=== PATIENT | male | born 1945 | race Caucasian/White ===

== ENCOUNTER 2018-04-15 12:18 | Observation (INO) ==
--- NOTE | 2018-04-15 12:42 | Emergency Department Note ---
ED Disposition Clinical Impression: Congestive heart failure Qualifiers: Heart failure type: unspecified Heart failure chronicity: acute on chronic Qualified Code(s): I50.9 - Heart failure, unspecified Disposition: Admitted as Observation Condition on Discharge: [facility] - Critical Care Critical Care Time: No Attestation: On 04/15/18, the high probability of a clinically significant, sudden or life threatening deterioration of the following system(s) required my full and direct attention, intervention and personal management. The time I documented below is in addition to time spent performing reported procedures but includes the following listed in this critical care notation. Medical Decision Making - Luis Inquiry Pt receiving controlled substance: No Vital Signs: 04/15/18 12:26 04/15/18 13:42 04/15/18 15:15 Temperature 98.9 F Temperature Source Oral Pulse Rate Pulse Rate [Left Radial] 67 66 61 Respiratory Rate 18 18 18 Blood Pressure Blood Pressure [Right Arm] 142/79 H 146/91 H 145/86 H Blood Pressure Mean [Right Arm] 100 109 105 Blood Pressure Source Blood Pressure Source [Right Arm] Automatic Cuff Automatic Cuff Automatic Cuff Blood Pressure Position Blood Pressure Position [Right Arm] Sitting Sitting Sitting 02 Sat by Pulse Oximetry 96 96 95 Oxygen Delivery Method Room Air Room Air Room Air 04/15/18 16:34 04/15/18 16:55 04/15/18 17:34 Temperature 98.7 F 98.5 F Temperature Source Oral Oral Pulse Rate Pulse Rate [Left Radial] 100 H 61 74 Respiratory Rate 28 H 20 Blood Pressure Blood Pressure [Right Arm] 118/80 148/87 H 142/84 H Blood Pressure Mean [Right Arm] 92 107 103 Blood Pressure Source Blood Pressure Source [Right Arm] Automatic Cuff Automatic Cuff Automatic Cuff Blood Pressure Position Blood Pressure Position [Right Arm] Sitting Sitting Sitting 02 Sat by Pulse Oximetry 90 L 96 98 Oxygen Delivery Method Room Air Room Air Room Air 04/15/18 17:39 Temperature 98 F Temperature Source Oral Pulse Rate 65 Pulse Rate [Left Radial] Respiratory Rate 24 Blood Pressure 145/75 H Blood Pressure [Right Arm] Blood Pressure Mean [Right Arm] Blood Pressure Source Automatic Cuff Blood Pressure Source [Right Arm] Blood Pressure Position Sitting Blood Pressure Position [Right Arm] 02 Sat by Pulse Oximetry Oxygen Delivery Method Room Air - Lab Data Lab Results 04/15/18 13:05: WBC 7.2, RBC 4.90, Hgb 14.9, Hct 46.1, MCV 93.9, MCH 30.3, MCHC 32.3, RDW 15.2, Plt Count 147, MPV 8.9, Neut % (Auto) 78.1, Lymph % (Auto) 12.1, [place] % (Auto) 6.7, Eos % (Auto) 2.5, Baso % (Auto) 0.6, Neut # (Auto) 5.7, Lymph # (Auto) 0.9, [place] # (Auto) 0.5, Eos # (Auto) 0.2, Baso # (Auto) 0.0 04/15/18 13:05: Troponin I < 0.02 04/15/18 13:05: B-Natriuretic Peptide 1340 H 04/15/18 13:05: Sodium 138, Potassium 4.1, Chloride 101, Carbon Dioxide 26, Anion Gap 15.1 H, BUN 14, Creatinine 1.13, Estimated Creat Clear 71, Estimated GFR 63, Est GFR ( Amer) 77, Glucose 209 H, Calcium 8.8 04/15/18 13:05: D-Dimer 542 H* Result diagrams: 04/15/18 13:05 04/15/18 13:05 Orders (Tests/Meds): ED MEDICATIONS Generic Name Dose Route Start Last Admin Trade Name Michael PRN Reason Stop Dose Admin Carvedilol 25 mg 04/15/18 21:00 Coreg 25mg Tablet PO 05/15/18 20:59 BID LING Furosemide 40 mg 04/15/18 21:00 Lasix 40mg/4ml Vial IV 05/15/18 20:59 BID [facility] Gemfibrozil 600 mg 04/16/18 09:00 Lopid 600mg Tablet PO 05/16/18 08:59 DAILY [facility] Insulin Human Lispro 0 unit 04/15/18 16:53 04/15/18 17:57 Humalog 100 Units/Ml 3ml Vial (Ssi) SQ 05/15/18 16:52 Not Given ACHS [facility] Protocol Lisinopril 20 mg 04/16/18 09:00 Zestril 20mg Tab PO 05/16/18 08:59 DAILY [facility] Pravastatin Sodium 40 mg 04/16/18 09:00 Pravachol 40mg Tablet PO 05/16/18 08:59 DAILY [facility] Spironolactone 25 mg 04/16/18 09:00 Aldactone 25mg Tablet PO 05/16/18 08:59 DAILY [facility]ING Discontinued Medications Generic Name Dose Route Start Last Admin Trade Name Freq PRN Reason Stop Dose Admin Furosemide 40 mg 04/15/18 15:55 04/15/18 16:04 Lasix 40mg/4ml Vial IV 04/15/18 15:56 40 mg ONCE ONE Administration Sodium Chloride 50 ml 04/15/18 14:48 04/15/18 14:49 Rad-Sod Chloride 0.9% 250ml IV 04/15/18 14:49 50 ml ONCE ONE Administration Sodium Chloride 10 ml 04/15/18 14:48 04/15/18 14:49 Rad-Saline Flush 10ml Syringe IV 04/15/18 14:49 10 ml ONCE ONE Administration Sodium Chloride 250 ml 04/15/18 15:11 04/15/18 15:14 Sod Chlor 0.9% 250ml Bag IV 04/15/18 15:12 250 ml ONCE ONE Administration ORDERS Category Date Time Status Consult to Physician [CONS] Routine Cons 04/15/18 16:53 Ordered Chest XR 2 view (NOT portable) [XR chest 2V] Stat Exams 04/15/18 12:29 Taken CA echo doppler complete Routine Y 04/16/18 07:00 Ordered ECG Request by /Dorian Stat Y 04/15/18 12:29 Stop Req - Radiology Data #1 Image(s): Chest Image Reviewed: Yes I reviewed the patient's radiology image small bilateral effusions - CT Data CT Scan: Chest (CTA) Time Received: 15:[address] Reviewed: Yes: I have viewed the radiologist's interpretation Findings Narrative: IMPRESSION...... 1. No evidence of pulmonary embolism. Excellent visualization pulmonary arteries. 2. Slow progression of contrast through heart suggestive of significant diminished cardiac output. Bilateral pleural effusions with mild pulmonary vascular congestion.. 3. Left ventricular enlargement/hypertrophy-with marked thinning and cardiac apex.-Likely old infarct here Recommend echocardiogram to evaluate ejection fraction & survey for possible developing left ventricular aneurysm at cardiac apex (Echocardiogram survey generous left atrial appendage also would be helpful) . Dictated By: Krishna Servin Signed By: <Electronically signed by Krishna Servin in [place]> 04/15/18 1513 - ECG Data Tracing #1 EKG interpreted by Jose Bravo MD: Rhythm: sinus Rate: 60 Edwards: normal Ectopy: none Conduction: First-degree AV block, nonspecific intraventricular conduction delay ST Segment Changes: none T Wave Changes: Nonspecific Q Waves: none No evidence of acute ischemia or injury Prior electrocardiagrams reviewed. No change from prior tracings. - Physician Consults Physician Consulted: Parish Time: 16:03 Reason -: Cardiology Eval/Care Comment/Response: Recommends admission. Discontinue hydrochlorothiazide. Start plain lisinopril instead. Lasix 40 mg IV twice daily. Additional Consult: Fidencio Time: 16:07 Reason -: Admission Comment/Response: Agrees to admit the patient to the hospital. We discussed the patient's clinical information, including history, exam, laboratory and radiology results and ED course. Per hospital procedure, I will write temporary bridge inpatient orders on the patient. Specific orders requested by the admitting physician: Per cardiology Medical Decision Narrative: Prior records: ECHO: CONCLUSION: 1. Technically difficult study because of the patient's factor and poor acoustic windows 2. Biatrial enlargement, dilated left ventricle, severely reduced left ventricular systolic function, visually estimated ejection fraction of 20-25% with multiple segmental wall motion abnormality as described above. 3. Thickened and calcified aortic valve without Doppler evidence of mild aortic stenosis, there is no aortic insufficiency. 4. Mild mitral and tricuspid regurgitation. 5. No significant pericardial effusion noted. <Electronically signed by ELAINE SANCHEZ MD in [place]> 01/30/172022 [place] / [place] AT 0757 AT 2019 [facility]: IMPRESSION: 1. Critical disease involving the ELIAS to the LAD 2. Ostially occluded saphenous vein graft to the circumflex artery 3. Ostially occluded saphenous vein graft to the right coronary artery 4. Severe disease throughout a large diagonal artery 5. Severe left ventricular dilatation with severe left ventricular dysfunction 6. Normal left ventricular end-diastolic pressure 7. PLAN: 1. Effient and aspirin now 2. The arterial sheath will be sewn into place 3. Heparin will be given in the bolus and in a drip perform 4. Patient will be urgently transferred to [place] and will undergo stenting of the ELIAS to the LAD 5. He will also undergo stenting of the first diagonal artery 6. After those 2 vessels are open we will consider trying to open the chronically occluded right coronary artery because of the severe interval decline in his ejection fraction <Electronically signed by Leobardo Lugo MD in [place]> 09/11/14 1145 General Adult HPI - General Chief complaint: Shortness of Breath/Dyspnea Stated complaint: SOA Time Seen by Provider: 04/15/18 13:08 Mode of Arrival: Ambulatory Limitations: No Limitations Description of Symptoms (Recalled from ER Triage Doc. by RN): to ed pre pvt car with c/o SOB x 1 week gradually getting worse. pt denies any chest pain, cough, fever, chills, nausea, vomiting, no edema to feet and ankles. cpta none - History of Present Illness HPI narrative: Complains of intermittent shortness of breath for 1 week. Gets episodes that he describes as a "smothering feeling". No associated chest pain or discomfort. Has a slight cough that he feels is due to sinus drainage. No leg pain or swelling. No hemoptysis. No fever. Has coronary artery disease. Previous bypass surgery in the . Stent placement and defibrillator placement 4 years ago. Last heart cath was at that time. Had an echocardiogram done last year. 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 - Related Data Home Medications Medication Instructions Recorded Confirmed Carvedilol [Coreg 25mg Tablet] 25 mg PO BID 04/15/18 04/15/18 Gemfibrozil 600 mg PO DAILY 04/15/18 04/15/18 Lisinopril/Hydrochlorothiazide 1 tab PO BID 04/15/18 04/15/18 [Lisinopril-Hctz 20-12.5 mg Tab] Pravastatin Sodium [Pravachol 40mg 40 mg PO DAILY 04/15/18 04/15/18 Tablet] Sitagliptin Phos/Metformin HCl 1 each PO BID 04/15/18 04/15/18 [Janumet 50-1,000 mg Tablet] Spironolactone 25 mg PO DAILY 04/15/18 04/15/18 glipiZIDE [Glipizide ER] 5 mg PO BID 04/15/18 04/15/18 Allergies Allergy/AdvReac Type Severity Reaction Status Date / Time No Known Allergies Allergy Unverified 02/14/17 14:06 [facility] History - Hepatitis A Screen Drug use history?: No High risk sexual behaviors?: No History of sexually transmitted infection?: No Currently employed?: No Childcare worker?: No Do you have indoor plumbing?: Yes Do you have electricity?: Yes Attestation statement:: This patient has been screened for Hepatitis A risk factors. I have reviewed the patient's past medical history: Yes - Social History Alcohol Intake: never Occupational Status: other - Psychiatric History Expresses thoughts of harming self/others: None Suicide Plan Description: No Plan ROS Obtained: Yes All systems reviewed & no additional complaints - Constitutional Constitutional: Denies fever(s) - ENT Ears, Nose, Mouth, and Throat: Reports post nasal drip - Cardiovascular Cardiovascular: Denies chest pain, Denies leg edema - Respiratory Respiratory: Yes dyspnea - Gastrointestinal Gastrointestingal: Denies: abdominal pain, vomiting Physical Exam - General General appearance: alert, in no apparent distress - Head Head exam: atraumatic, normocephalic - Eye Eye exam: Present: normal appearance, PERRL, EOMI - ENT ENT exam: Present: mucous membranes moist - Neck Neck exam: Present: normal inspection, trachea midline - Chest Chest inspection: Present: normal inspection, symmetric chest wall rise - Respiratory Respiratory exam: Present: normal lung sounds bilaterally. Absent: respiratory distress - Cardiovascular Cardiovascular exam: Present: regular rate, normal rhythm, normal heart sounds - Abdominal Exam Abdominal exam: Present: soft. Absent: distention, tenderness, guarding, rebound - Extremities Exam Extremities exam: Present: normal inspection, full ROM. Absent: tenderness - Neurological Exam Neurological exam: Present: alert, oriented X3 - Psychiatric Psychiatric exam: Present: normal affect, normal mood
[2018-04-15 13:19] LABS: Basophils % 0.6 % (0.1-2.0); Eosinophils # 0.2 K/mm3 (0.0-0.4); Eosinophils % 2.5 % (0.1-12.0); Hematocrit 46.1 % (42.0-52.0); Hemoglobin 14.9 g/dL (14.1-18.0); Lymphocytes # 0.9 K/mm3 (0.7-4.5); Lymphocytes % 12.1 % (10-50); Mean Corpuscular HGB Conc 32.3 g/dL (31.8-35.4); Mean Corpuscular Hemoglobin 30.3 pg (27.0-31.2); Mean Corpuscular Volume 93.9 fl (80-94); Mean Platelet Volume 8.9 fl (7.4-10.4); Monocytes # 0.5 K/mm3 (0.1-1.0); Monocytes % 6.7 % (1.7-9.3); Neutrophils # 5.7 K/mm3 (1.8-7.8); Neutrophils % 78.1 % (37.0-80.0); Platelet Count 147 K/mm3 (142-424); Red Cell Distribution Width 15.2 % (11.5-17.5); White Blood Count 7.2 K/mm3 (4.8-10.8)
[2018-04-15 13:21] LABS: Anion Gap 15.1 mEq/L (5-15); Calcium 8.8 mg/dL (8.5-10.1); Potassium 4.1 mmoL/L (3.5-5.1)
--- NOTE | 2018-04-15 22:42 | History & Physical Report ---
*Admission Date: 04/15/18 *Chief complaint: chest congestion *History of present illness: this wm who has known chf and cad had new onset of chest smothering today assoc with sob - he has been compliant with meds - [place] of intermittent shortness of breath for 1 week. Gets episodes that he describes as a "smothering feeling". No associated chest pain or discomfort. Has a slight cough that he feels is due to sinus drainage. No leg pain or swelling. No hemoptysis. No fever. pt was admitted for chest pain eval [facility] History I have reviewed the patient's past medical history: Yes Medical History: Reports:: Congestive Heart Failure, Coronary Artery Disease, Internal Pacemaker Denies:: Cancer, Diabetes Mellitus Type 2 *Have you ever received a pneumonia vaccine?: Yes *Have you received a flu vaccine this season?: Yes Other Surgeries: Yes: CABG (1991), Pacemaker - *Social History Alcohol Intake: never *Occupational Status:: other Household Members: none *Travel in the last 8 weeks: None - Psychiatric History Expresses thoughts of harming self/others: None Suicide Plan Description: No Plan Family Hx:: Coronary Artery Disease Review of Systems - Review of Systems Review of systems:: pertinent systems reviewed and negative unless documented below - Constitutional Denies fever(s) - Eyes Denies change in vision - ENT Denies sore throat - *Cardiovascular Reports shortness of breath, Reports shortness of breath when lying down - *Respiratory Reports shortness of breath, Denies cough, Denies coughing up blood - *Gastrointestinal Denies abdominal pain - *Genitourinary Denies blood in urine - *Musculoskeletal Denies joint pain - Integumentary/Breasts Denies rash - *Neurologic Denies confusion, Denies loss of vision, Denies seizure-like activity - Psychiatric Denies anxiety Meds Home Medications Medication Instructions Recorded Confirmed Type Carvedilol [Coreg 25mg Tablet] 25 mg PO BID 04/15/18 04/15/18 History Gemfibrozil 600 mg PO DAILY 04/15/18 04/15/18 History Lisinopril/Hydrochlorothiazide 1 tab PO BID 04/15/18 04/15/18 History [Lisinopril-Hctz 20-12.5 mg Tab] Pravastatin Sodium [Pravachol 40mg 40 mg PO DAILY 04/15/18 04/15/18 History Tablet] Sitagliptin Phos/Metformin HCl 1 each PO BID 04/15/18 04/15/18 History [Janumet 50-1,000 mg Tablet] Spironolactone 25 mg PO DAILY 04/15/18 04/15/18 History glipiZIDE [Glipizide ER] 5 mg PO BID 04/15/18 04/15/18 History Allergies Allergy/AdvReac Type Severity Reaction Status Date / Time No Known Allergies Allergy Unverified 02/14/17 14:06 Exam Vital signs and Labs for Last 24 Hours: Temp Pulse Resp BP Pulse Ox 97.6 F 60 20 119/54 L 94 L 04/15/18 19:35 04/15/18 19:35 04/15/18 19:35 04/15/18 19:35 04/15/18 19:35 Laboratory Results - last 24 hr 04/15/18 13:05: WBC 7.2, RBC 4.90, Hgb 14.9, Hct 46.1, MCV 93.9, MCH 30.3, MCHC 32.3, RDW 15.2, Plt Count 147, MPV 8.9, Neut % (Auto) 78.1, Lymph % (Auto) 12.1, [place] % (Auto) 6.7, Eos % (Auto) 2.5, Baso % (Auto) 0.6, Neut # (Auto) 5.7, Lymph # (Auto) 0.9, [place] # (Auto) 0.5, Eos # (Auto) 0.2, Baso # (Auto) 0.0 04/15/18 13:05: Troponin I < 0.02 04/15/18 13:05: B-Natriuretic Peptide 1340 H 04/15/18 13:05: Sodium 138, Potassium 4.1, Chloride 101, Carbon Dioxide 26, Anion Gap 15.1 H, BUN 14, Creatinine 1.13, Estimated Creat Clear 71, Estimated GFR 63, Est GFR ( Amer) 77, Glucose 209 H, Calcium 8.8 04/15/18 13:05: D-Dimer 542 H* 04/15/18 20:31: POC Glucose 209 H I & O for Last 24 hours: Intake & Output 04/13/18 04/14/18 04/15/18 04/16/18 11:59 11:59 11:59 11:59 Output Total 850 / 850 Balance -850 / -850 Weight 192 lb 8 oz - Constitutional no acute distress - *Routine HEENT Exam Head: Present: normocephalic Eye: Present: EOMI, PERRL ENT: Present: mucous membranes dry - *Routine Neck Exam Present: supple. Absent: JVD - *Routine Respiratory Exam Present: CTA bilaterally - *Routine Cardiovascular Exam Present: RRR, murmur, S4 - *Routine Abdominal Exam Present: soft - *Routine Extremities Exam Absent: edema - *Routine Skin Exam Present: intact - *Routine Neurological Exam Present: alert, oriented X3, CN II-XII intact - Routine Psychiatric Exam Present: normal affect Assessment and Plan (1) Congestive heart failure Current visit: Yes Status: Acute Qualifiers: Heart failure type: unspecified Heart failure chronicity: acute on chronic Qualified Code(s): I50.9 - Heart failure, unspecified Category: Medical Code(s): I50.9 - Heart failure, unspecified (2) Elevated d-dimer Current visit: Yes Status: Acute Category: Medical Code(s): R79.89 - Other specified abnormal findings of blood chemistry (3) Hx of CABG Current visit: Yes Status: Acute Category: Surgical Code(s): Z95.1 - Presence of aortocoronary bypass graft
[2018-04-16 06:52] LABS: Anion Gap 15.3 mEq/L (5-15); Calcium 8.7 mg/dL (8.5-10.1); Potassium 3.3 mmoL/L (3.5-5.1)
--- NOTE | 2018-04-16 07:20 | Pharmacy Consult Notes ---
[facility] Pharmacy VTE Monitoring - Patient Demographics Admission date: 04/15/18 Report Date: 04/16/18 Time: 07:19 Allergies/Adverse Reactions: Patient Allergies No Known Allergies Allergy (Unverified 02/14/17 14:06) Height: 1.75 m Weight: 85.445 kg Patient Problems: Current Active Problems Congestive heart failure (Acute) Elevated d-dimer (Acute) Hx of CABG (Acute) - VTE Risk Labs: VTE Related Lab Results Hgb 14.9 g/dL (14.1-18.0) 04/15/18 13:05 Hct 46.1 % (42.0-52.0) 04/15/18 13:05 Plt Count 147 K/mm3 (142-424) 04/15/18 13:05 BUN 18 mg/dL (7-18) D 04/16/18 06:18 Creatinine 1.21 mg/dL (0.70-1.30) 04/16/18 06:18 Estimated Creat Clear 65 mL/min (50-200) 04/16/18 06:18 Was VTE Risk Assessment Performed: Yes VTE Score: 3 VTE Risk Level: Low Risk - Prophylaxis VTE Prophylaxis Ordered?: Yes Types of VTE Prophylaxis: TEDS Knee High Location of Applied Device: Bilateral Lower Extremeties - VTE Diagnosis Confirmed Treatment or plan recommended: Continue Current Treatment
[2018-04-16 07:59] VITALS: BP 147/66
--- NOTE | 2018-04-16 08:25 | Consult Report ---
History of Present Illness Consult date: 04/16/18 Requesting physician: Connor Nicolas Consult reason: congestive heart failure Chief complaint: SOA Additional Medical History:: 1. CAD A. CABG, 1991 B. 4 SALMA to ELIAS to LAD and 3 SALMA to [place] diagonal artery, 2014 C. Lorenzo myoview, 01/2017, LVEF 20% without ischemia. Significant scar noted. 2. DM 3. HTN 4. HLD 5. Chronic systolic CHF, class 2 History of present illness: 72-year-old white male with known coronary artery disease, ischemic cardiomyopathy and chronic systolic congestive heart failure presented to emergency department for evaluation of 1 week intermittent smothering sensation. Patient relates no lower extremity edema but some increasing difficulty lying down and sleeping due to shortness of breath. Patient was seen in the emergency department with chest x-ray evidence and BMP consistent with congestive heart failure. Patient did receive IV Lasix with significant improvement in symptoms after diuresis. Cardiac troponins have returned normal. Patient states he is feeling much better and ready to go home. Cardiology consulted for evaluation recommendations. [facility] History Medical History: Reports:: Congestive Heart Failure, Coronary Artery Disease, Internal Pacemaker Denies:: Cancer, Diabetes Mellitus Type 2 *Have you ever received a pneumonia vaccine?: Yes *Have you received a flu vaccine this season?: Yes Other Surgeries: Yes: CABG (1991), Pacemaker - *Social History Alcohol Intake: never *Occupational Status:: other Household Members: none *Travel in the last 8 weeks: None - Psychiatric History Expresses thoughts of harming self/others: None Suicide Plan Description: No Plan Family Hx:: Coronary Artery Disease Meds Home Medications Medication Instructions Recorded Confirmed Type Carvedilol [Coreg 25mg Tablet] 25 mg PO BID 04/15/18 04/15/18 History Gemfibrozil 600 mg PO DAILY 04/15/18 04/15/18 History Lisinopril/Hydrochlorothiazide 1 tab PO BID 04/15/18 04/15/18 History [Lisinopril-Hctz 20-12.5 mg Tab] Pravastatin Sodium [Pravachol 40mg 40 mg PO DAILY 04/15/18 04/15/18 History Tablet] Spironolactone 25 mg PO DAILY 04/15/18 04/15/18 History glipiZIDE [Glipizide ER] 5 mg PO BID 04/15/18 04/15/18 History Pantoprazole Sodium [Protonix 40mg 40 mg PO DAILY 04/16/18 04/16/18 History tablet] Sitagliptin Phos/Metformin HCl 1 each PO BID 04/16/18 04/16/18 History [Janumet 50-500 mg Tablet] Allergies Allergy/AdvReac Type Severity Reaction Status Date / Time No Known Allergies Allergy Unverified 02/14/17 14:06 Review of Systems - *Cardiovascular Reports shortness of breath, Reports shortness of breath with activity, Denies chest pain - *Respiratory Reports cough, Reports shortness of breath, Reports shortness of breath with activity - *Gastrointestinal Denies abdominal pain, Denies loose stools - *Genitourinary Denies blood in urine - *Musculoskeletal Denies joint pain, Denies back pain - *Neurologic Denies confusion, Denies loss of vision, Denies seizure-like activity Exam Vital signs and Labs for Last 24 Hours: Temp Pulse Resp BP Pulse Ox 97.9 F 58 L 18 147/66 H 93 L 04/16/18 07:58 04/16/18 07:58 04/16/18 07:58 04/16/18 07:58 04/16/18 08:00 Laboratory Results - last 24 hr 04/15/18 13:05: WBC 7.2, RBC 4.90, Hgb 14.9, Hct 46.1, MCV 93.9, MCH 30.3, MCHC 32.3, RDW 15.2, Plt Count 147, MPV 8.9, Neut % (Auto) 78.1, Lymph % (Auto) 12.1, [place] % (Auto) 6.7, Eos % (Auto) 2.5, Baso % (Auto) 0.6, Neut # (Auto) 5.7, Lymph # (Auto) 0.9, [place] # (Auto) 0.5, Eos # (Auto) 0.2, Baso # (Auto) 0.0 04/15/18 13:05: Troponin I < 0.02 04/15/18 13:05: B-Natriuretic Peptide 1340 H 04/15/18 13:05: Sodium 138, Potassium 4.1, Chloride 101, Carbon Dioxide 26, Anion Gap 15.1 H, BUN 14, Creatinine 1.13, Estimated Creat Clear 71, Estimated GFR 63, Est GFR ( Amer) 77, Glucose 209 H, Calcium 8.8 04/15/18 13:05: D-Dimer 542 H* 04/15/18 20:31: POC Glucose 209 H 04/16/18 06:15: POC Glucose 146 H 04/16/18 06:18: Sodium 142, Potassium 3.3 L, Chloride 102, Carbon Dioxide 28, Anion Gap 15.3 H, BUN 18 D, Creatinine 1.21, Estimated Creat Clear 65, Estimated GFR 59, Est GFR ( Amer) 71, Glucose 167 H D, Calcium 8.7, Troponin I 0.02 I & O for Last 24 hours: Intake & Output 04/13/18 04/14/18 04/15/18 04/16/18 11:59 11:59 11:59 11:59 Intake Total 1214 / 1214 Output Total 850 / 850 Balance 364 / 364 Weight 188 lb 6 oz - *Routine HEENT Exam Head: Present: normocephalic Eye: Present: EOMI, PERRL ENT: Present: mucous membranes moist - *Routine Neck Exam Present: supple. Absent: JVD, carotid bruit - *Routine Respiratory Exam Present: CTA bilaterally. Absent: accessory muscle use, rales, rhonchi, wheezes - *Routine Cardiovascular Exam Present: RRR, murmur. Absent: gallop, rubs - *Routine Abdominal Exam Present: soft. Absent: tenderness, distended, guarding - *Routine Extremities Exam Absent: edema, calf tenderness - *Routine Neurological Exam Present: alert, oriented X3, moving all extremities Assessment and Plan (1) Congestive heart failure Current visit: Yes Status: Acute Qualifiers: Heart failure type: unspecified Heart failure chronicity: acute on chronic Qualified Code(s): I50.9 - Heart failure, unspecified Category: Medical Code(s): I50.9 - Heart failure, unspecified (2) Elevated d-dimer Current visit: Yes Status: Acute Category: Medical Code(s): R79.89 - Other specified abnormal findings of blood chemistry (3) Hx of CABG Current visit: Yes Status: Acute Category: Surgical Code(s): Z95.1 - Presence of aortocoronary bypass graft (4) Ischemic cardiomyopathy Current visit: Yes Status: Acute Category: Medical Code(s): I25.5 - Ischemic cardiomyopathy - Assessment and plan all Dx Assessment and Plan for all problems:: 1. Would not recommend further cardiac testing at this time. Patient seems lambert k to his baseline and wants to go home. 2. Preliminary echocardiogram today shows ejection fraction at about 20-25% which is consistent with the patient's known ischemic cardiomyopathy and severely reduced ejection fraction. Patient has an ICD in place. 3. Review of home medications reveals no Lasix. Would recommend adding Lasix 40 mg daily along with potassium 10 mEq daily and continuing spironolactone 25 mg daily along with coreg 25 mg BID and lisinopril 20 mg daily (not the combo of lisinopril/HCT). 4. Follow-up with us in 1 week with BMP. We will interrogate his defibrillator at that time and consider upgrading to a EARTH SCIENCE PROFESSOR-D device if needed.
--- NOTE | 2018-04-16 08:34 | Discharge Summary ---
General - General Admission date:: 04/15/18 Discharge date: 04/16/18 HPI HPI: this wm who has known chf and cad had new onset of chest smothering today assoc with sob - he has been compliant with meds - [place] of intermittent shortness of breath for 1 week. Gets episodes that he describes as a "smothering feeling". No associated chest pain or discomfort. Has a slight cough that he feels is due to sinus drainage. No leg pain or swelling. No hemoptysis. No fever. pt was admitted for chest pain eval Hospital Course Hospital Course: pt has did well with good response to lasix - he had echo and it was reported as stable- he was seen by card-JETHRO A. CABG, 1991 B. 4 SALMA to ELIAS to LAD and 3 SALMA to [place] diagonal artery, 2014 C. Lorenzo myoview, 01/2017, LVEF 20% without ischemia. Significant scar noted. 2. DM 3. HTN 4. HLD 5. Chronic systolic CHF, class 2 History of present illness: 72-year-old white male with known coronary artery disease, ischemic cardiomyopathy and chronic systolic congestive heart failure presented to emergency department for evaluation of 1 week intermittent smothering sensation. Patient relates no lower extremity edema but some increasing difficulty lying down and sleeping due to shortness of breath. Patient was seen in the emergency department with chest x-ray evidence and BMP consistent with congestive heart failure. Patient did receive IV Lasix with significant improvement in symptoms after diuresis. Cardiac troponins have returned normal. Patient states he is feeling much better and ready to go home. Cardiology consulted for evaluation recommendations. ould not recommend further cardiac testing at this time. Patient seems back to his baseline and wants to go home. 2. Preliminary echocardiogram today shows ejection fraction at about 20-25% which is consistent with the patient's known ischemic cardiomyopathy and severely reduced ejection fraction. Patient has an ICD in place. 3. Review of home medications reveals no Lasix. Would recommend adding Lasix 40 mg daily along with potassium 10 mEq daily and continuing spironolactone 25 mg daily along with coreg 25 mg BID and lisinopril 20 mg daily (not the combo of lisinopril/HCT). 4. Follow-up with us in 1 week with BMP. We will interrogate his defibrillator at that time and consider upgrading to a HOSPITAL UNIT COORDINATOR-D device if needed. Objective Vital signs: Temp Pulse Resp BP Pulse Ox 97.9 F 58 L 18 147/66 H 93 L 04/16/18 07:58 04/16/18 07:58 04/16/18 07:58 04/16/18 07:58 04/16/18 08:00 no acute distress - *Routine HEENT Exam Head: Present: normocephalic Eye: Present: EOMI, PERRL ENT: Present: mucous membranes dry - *Routine Neck Exam Present: supple. Absent: JVD - *Routine Respiratory Exam Present: CTA bilaterally - *Routine Cardiovascular Exam Present: RRR, murmur, S4 - *Routine Abdominal Exam Present: soft - *Routine Extremities Exam Absent: Vero's sign - *Routine Skin Exam Present: intact - *Routine Neurological Exam Present: alert, oriented X3, CN II-XII intact - Routine Psychiatric Exam Present: normal affect Results Labs on day of discharge: Labs from last 24 hours 04/16/18 04/16/18 04/15/18 06:18 06:15 20:31 WBC RBC Hgb Hct MCV MCH MCHC RDW Plt Count MPV Neut % (Auto) Lymph % (Auto) [place] % (Auto) Eos % (Auto) Baso % (Auto) Neut # (Auto) Lymph # (Auto) [place] # (Auto) Eos # (Auto) Baso # (Auto) D-Dimer Sodium 142 Potassium 3.3 L Chloride 102 Carbon Dioxide 28 Anion Gap 15.3 H BUN 18 D Creatinine 1.21 Estimated Creat Clear 65 Estimated GFR 59 Est GFR ( Amer) 71 Glucose 167 H D POC Glucose 146 H 209 H Calcium 8.7 Troponin I 0.02 B-Natriuretic Peptide 04/15/18 04/15/18 04/15/18 13:05 13:05 13:05 WBC RBC Hgb Hct MCV MCH MCHC RDW Plt Count MPV Neut % (Auto) Lymph % (Auto) [place] % (Auto) Eos % (Auto) Baso % (Auto) Neut # (Auto) Lymph # (Auto) [place] # (Auto) Eos # (Auto) Baso # (Auto) D-Dimer 542 H* Sodium 138 Potassium 4.1 Chloride 101 Carbon Dioxide 26 Anion Gap 15.1 H BUN 14 Creatinine 1.13 Estimated Creat Clear 71 Estimated GFR 63 Est GFR ( Amer) 77 Glucose 209 H POC Glucose Calcium 8.8 Troponin I B-Natriuretic Peptide 1340 H 04/15/18 04/15/18 13:05 13:05 WBC 7.2 RBC 4.90 Hgb 14.9 Hct 46.1 MCV 93.9 MCH 30.3 MCHC 32.3 RDW 15.2 Plt Count 147 MPV 8.9 Neut % (Auto) 78.1 Lymph % (Auto) 12.1 [place] % (Auto) 6.7 Eos % (Auto) 2.5 Baso % (Auto) 0.6 Neut # (Auto) 5.7 Lymph # (Auto) 0.9 [place] # (Auto) 0.5 Eos # (Auto) 0.2 Baso # (Auto) 0.0 D-Dimer Sodium Potassium Chloride Carbon Dioxide Anion Gap BUN Creatinine Estimated Creat Clear Estimated GFR Est GFR ( Amer) Glucose POC Glucose Calcium Troponin I < 0.02 B-Natriuretic Peptide DS: Diagnosis - Discharge Diagnosis (1) Congestive heart failure Status: Acute (2) Elevated d-dimer Status: Acute (3) Hx of CABG Status: Acute (4) Ischemic cardiomyopathy Status: Acute (5) Hypokalemia Status: Acute (6) Diabetes mellitus Status: Acute Discharge Plan - Patient Discharge Instructions ACTIVITY: Continue current activity DIET: continue same diet Patient Instructions: DI for Heart Failure - Follow up Plan Disposition: Home, Self-Jail Medications: Home Medications Medication Instructions Recorded Confirmed Type Carvedilol [Coreg 25mg Tablet] 25 mg PO BID 04/15/18 04/15/18 History Gemfibrozil 600 mg PO DAILY 04/15/18 04/15/18 History Lisinopril/Hydrochlorothiazide 1 tab PO BID 04/15/18 04/15/18 History [Lisinopril-Hctz 20-12.5 mg Tab] Pravastatin Sodium [Pravachol 40mg 40 mg PO DAILY 04/15/18 04/15/18 History Tablet] Spironolactone 25 mg PO DAILY 04/15/18 04/15/18 History glipiZIDE [Glipizide ER] 5 mg PO BID 04/15/18 04/15/18 History Furosemide [Lasix 40mg tab] 40 mg PO DAILY #30 tab 04/16/18 Rx Lisinopril [Zestril 20mg tab] 20 mg PO DAILY #30 tablet 04/16/18 Rx Pantoprazole Sodium [Protonix 40mg 40 mg PO DAILY 04/16/18 04/16/18 History tablet] Potassium Chloride [Micro-K 10mEq 10 meq PO DAILY #30 capsule.er 04/16/18 Rx cap] Sitagliptin Phos/Metformin HCl 1 each PO BID 04/16/18 04/16/18 History [Janumet 50-500 mg Tablet] Prescriptions/Medication Reconciliation: New Furosemide [Lasix 40mg tab] 40 mg PO DAILY #30 tab Potassium Chloride [Micro-K 10mEq cap] 10 meq PO DAILY #30 capsule.er Lisinopril [Zestril 20mg tab] 20 mg PO DAILY #30 tablet Continue Carvedilol [Coreg 25mg Tablet] 25 mg PO BID Spironolactone 25 mg PO DAILY Pravastatin Sodium [Pravachol 40mg Tablet] 40 mg PO DAILY glipiZIDE [Glipizide ER] 5 mg PO BID Gemfibrozil 600 mg PO DAILY Pantoprazole Sodium [Protonix 40mg tablet] 40 mg PO DAILY Sitagliptin Phos/Metformin HCl [Janumet 50-500 mg Tablet] 1 each PO BID Discontinued Lisinopril/Hydrochlorothiazide [Lisinopril-Hctz 20-12.5 mg Tab] 1 tab PO BID
== END 2018-04-16 09:30 | disposition home or self-care (01) ==
LOC: 2ND 12:18 → ER 12:18 → 2ND 17:41
PROVIDERS: ADMIT Emergency Medicine; ATTEND Emergency Medicine
DX: I25.10 Atherosclerotic heart disease of native coronary artery without angina pectoris; I25.5 Ischemic cardiomyopathy; E78.5 Hyperlipidemia, unspecified; Z95.810 Presence of automatic (implantable) cardiac defibrillator; Z95.1 Presence of aortocoronary bypass graft; Z95.828 Presence of other vascular implants and grafts; I50.22 Chronic systolic (congestive) heart failure; E11.9 Type 2 diabetes mellitus without complications; R79.89 Other specified abnormal findings of blood chemistry; I11.0 Hypertensive heart disease with heart failure; R06.02 Shortness of breath
CPT/HCPCS: 36415; 71020; 71046; 71275; 80048; 82962; 83880; 84484; 85025; 85378; 93005; 93306; 96374; 99284; G0378; Q9957

== ENCOUNTER → 2018-04-23 12:22 | Outpatient (CLI) | payer MEDICARE, SELFPAY ==
[2018-04-23 13:16] LABS: Anion Gap 14.6 mEq/L (5-15); Blood Urea Nitrogen 24 mg/dL (7-18); Calcium 9.8 mg/dL (8.5-10.1); Carbon Dioxide 30 mmol/L (21.0-32.0); Chloride 100 mmol/L (98-107); Creatinine,Serum 1.36 mg/dL (0.70-1.30); Estimated Glomerular Filt Rate 51 ml/min (>60); GFR (African American) 62 ML/MIN (>60); Glucose 232 mg/dL (74-106); Potassium 4.6 mmoL/L (3.5-5.1); Sodium 140 mmol/L (136-145)
== END ==
PROVIDERS: Visit Provider Internal Medicine
DX: I25.5 Ischemic cardiomyopathy (principal); I50.9 Heart failure, unspecified; Z95.1 Presence of aortocoronary bypass graft; R06.02 Shortness of breath
CPT/HCPCS: 36415; 80048; 83880

== ENCOUNTER → 2018-05-07 11:30 | Outpatient (CLI) | payer MEDICARE, SELFPAY ==
[2018-05-07 12:49] LABS: Anion Gap 15.8 mEq/L (5-15); Blood Urea Nitrogen 24 mg/dL (7-18); Calcium 9.1 mg/dL (8.5-10.1); Carbon Dioxide 28 mmol/L (21.0-32.0); Chloride 98 mmol/L (98-107); Creatinine,Serum 1.38 mg/dL (0.70-1.30); Estimated Glomerular Filt Rate 50 ml/min (>60); GFR (African American) 61 ML/MIN (>60); Glucose 368 mg/dL (74-106); Potassium 4.8 mmoL/L (3.5-5.1); Sodium 137 mmol/L (136-145)
== END ==
PROVIDERS: Visit Provider Urology
DX: I25.5 Ischemic cardiomyopathy (principal); I50.9 Heart failure, unspecified; R06.02 Shortness of breath; Z95.1 Presence of aortocoronary bypass graft
CPT/HCPCS: 36415; 80048; 83880

== ENCOUNTER → 2018-10-16 07:55 | Outpatient (CLI) | payer MEDICARE, SELFPAY ==
--- NOTE | 2018-10-16 07:58 | CA_ITS ---
[facility] RADIOLOGICAL CONSULTATION Patient Name : Jose David Greene X-RAY # : [id number] Physician: CARROLL NEVES AGE: 73Y : 1945 00:00:00 ( M ) Exam : CA ECHO DOPPLER COMPLETE ACC # : [id number] Study Date : 10/16/2018 08:34:05 Patient Class : O FINAL REPORT CLINICAL DATA: FINDINGS: IMPRESSION: Dictated by Cassie Ambrose at 10/17/2018 12:44:29 PM Transcribed by at
== END ==
PROVIDERS: PCP Family Medicine; Visit Provider Physician Assistant
DX: E11.9 Type 2 diabetes mellitus without complications (principal); I25.10 Atherosclerotic heart disease of native coronary artery without angina pectoris; I25.5 Ischemic cardiomyopathy; I50.9 Heart failure, unspecified; R06.02 Shortness of breath; Z95.1 Presence of aortocoronary bypass graft; Z79.84 Long term (current) use of oral hypoglycemic drugs
CPT/HCPCS: 93306

== ENCOUNTER → 2021-06-09 14:18 | Outpatient (CLI) | payer MEDICARE, SELFPAY ==
[2021-06-09 14:49] LABS: Basophils # 0.1 K/mm3 (0-0.2); Basophils % 1.5 % (0.1-2.0); Eosinophils # 0.3 K/mm3 (0.0-0.4); Eosinophils % 4.3 % (0.1-12.0); Hematocrit 47.2 % (42.0-52.0); Hemoglobin 14.9 g/dL (14.1-18.0); Lymphocytes # 1.1 K/mm3 (0.7-4.5); Lymphocytes % 14.6 % (10-50); Mean Corpuscular HGB Conc 31.7 g/dL (31.8-35.4); Mean Corpuscular Volume 97.8 fl (80-94); Mean Platelet Volume 12.1 fl (7.4-10.4); Monocytes # 0.6 K/mm3 (0.1-1.0); Monocytes % 8.3 % (1.7-9.3); Neutrophils # 5.4 K/mm3 (1.8-7.8); Neutrophils % 71.4 % (37.0-80.0); Platelet Count 138 K/mm3 (142-424); Red Blood Count 4.82 M/mm3 (4.60-6.20); Red Cell Distribution Width 15.3 % (11.5-17.5); White Blood Count 7.5 K/mm3 (4.8-10.8)
[2021-06-09 15:02] LABS: Chloride 101 mmol/L (98-107)
[2021-06-09 15:03] LABS: Potassium 4.6 mmoL/L (3.5-5.1); Sodium 139 mmol/L (136-145)
[2021-06-09 15:05] LABS: Alanine Aminotransferase 12 U/L (12-78); Albumin Level 4.4 g/dl (3.5-5.0); Alkaline Phosphatase 67 U/L (38-126); Anion Gap 15.6 mEq/L (5-15); Aspartate Amino Transferase 20 U/L (17-59); Bilirubin,Direct 0.4 mg/dl (0.0-0.4); Bilirubin,Indirect 0.6 mg/dL (0.0-0.9); Bilirubin,Unconjugated 0.6 mg/dL (0.0-1.1); Blood Urea Nitrogen 22 mg/dl (9-20); Carbon Dioxide 27 mmol/L (22.0-30.0); Estimated Glomerular Filt Rate 54 ml/min (>60); GFR (African American) 65 ML/MIN (>60)
[2021-06-09 15:06] LABS: Calcium 8.8 mg/dl (8.4-10.2); Chol/HDL Ratio 5.6 (1-3.5); Cholesterol 139 mg/dl (140-200); Glucose 111 mg/dl (74-100); HDL Cholesterol 25 mg/dl (40-60); Total Protein,Serum 7.2 g/dl (6.3-8.2); Triglycerides 112 mg/dl (30-150); VLDL Cholesterol 22 mg/dL (0-40)
[2021-06-09 15:36] LABS: Thyroid Stimulating Hormone 3.17 uIU/mL (0.465-4.68)
[2021-06-09 16:45] LABS: Free T4 (Free Thyroxine) 1.25 ng/dl (0.78-2.19)
== END ==
PROVIDERS: Visit Provider Internal Medicine
DX: E78.2 Mixed hyperlipidemia (principal); I25.10 Atherosclerotic heart disease of native coronary artery without angina pectoris; I25.5 Ischemic cardiomyopathy; I50.22 Chronic systolic (congestive) heart failure; R94.31 Abnormal electrocardiogram [ECG] [EKG]; Z95.1 Presence of aortocoronary bypass graft; Z95.810 Presence of automatic (implantable) cardiac defibrillator; I11.0 Hypertensive heart disease with heart failure
CPT/HCPCS: 36415; 80048; 80061; 80076; 83735; 84439; 84443; 85025

== ENCOUNTER 2021-06-18 11:05 | Emergency (ER) | payer MEDICARE, SELFPAY ==
[2021-06-18 11:06] VITALS: BP 118/73; PULSE 73; RESP 14; TEMP 36.4; O2SAT 99; BMI 26.2
--- NOTE | 2021-06-18 11:12 | HMH.EDGENADL ---
ED Disposition Clinical Impression: Congestive heart failure Qualifiers: Heart failure type: unspecified Heart failure chronicity: acute on chronic Qualified Code(s): I50.9 - Heart failure, unspecified Disposition: Home, Self-Care Condition on Discharge: Good Instructions: DI for Heart Failure Additional Instructions: Start taking your diuretic medicine (water pills) again. Follow-up with cardiology on Monday for procedure as scheduled. Referrals: Kuldip Tapia [Primary Care Provider] - - Critical Care Critical Care Time: No Attestation: On , the high probability of a clinically significant, sudden or life threatening deterioration of the following system(s) required my full and direct attention, intervention and personal management. The time I documented below is in addition to time spent performing reported procedures but includes the following listed in this critical care notation. Medical Decision Making - Medical Records Medical records reviewed: Yes: I reviewed the patient's medical records. MR Comment: Reviewed most recent cardiology clinic note 06/09/2021. 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 - Luis Inquiry Pt receiving controlled substance: No Vital Signs: 06/18/21 11:06 06/18/21 11:30 06/18/21 12:00 Temperature 97.5 F L Temperature Source Oral Pulse Rate 67 67 Pulse Rate [Right Radial] 73 Respiratory Rate 14 14 21 Blood Pressure 112/70 114/81 Blood Pressure [Right Arm] 118/73 Blood Pressure Mean 84 87 Blood Pressure Mean [Right Arm] 88 Blood Pressure Source [Right Arm] Automatic Cuff Blood Pressure Position [Right Arm] Sitting 02 Sat by Pulse Oximetry 99 97 99 Oxygen Delivery Method Room Air 06/18/21 12:30 Temperature Temperature Source Pulse Rate 64 Pulse Rate [Right Radial] Respiratory Rate 21 Blood Pressure 105/73 L Blood Pressure [Right Arm] Blood Pressure Mean 84 Blood Pressure Mean [Right Arm] Blood Pressure Source [Right Arm] Blood Pressure Position [Right Arm] 02 Sat by Pulse Oximetry 98 Oxygen Delivery Method - Lab Data Lab Results 06/18/21 11:49: WBC 4.2 L, RBC 4.57 L, Hgb 14.1, Hct 43.6, MCV 95.4 H, MCH 30.9, MCHC 32.4, RDW 15.1, Plt Count 137 L, MPV 10.9 H, Neut % (Auto) 73.2, Lymph % (Auto) 14.9, [place] % (Auto) 5.8, Eos % (Auto) 3.5, Baso % (Auto) 2.6 H, Neut # (Auto) 3.1, Lymph # (Auto) 0.6 L, [place] # (Auto) 0.3, Eos # (Auto) 0.2, Baso # (Auto) 0.1 06/18/21 11:49: Sodium 137, Potassium 3.9, Chloride 101, Carbon Dioxide 26, Anion Gap 13.9, BUN 19, Creatinine 1.30 H, Estimated Creat Clear 54, Estimated GFR 54 L, Est GFR ( Amer) 65, Glucose 173 H, Calcium 8.0 L, Total Bilirubin 0.8, AST 25, ALT 19, Alkaline Phosphatase 72, Troponin I 0.01, NT-Pro-B Natriuret Pep 9590 H, Total Protein 7.3, Albumin 4.2, Globulin 3.1, Albumin/Globulin Ratio 1.4 06/18/21 12:35: Urine Color Yellow, Urine Appearance Clear, Urine pH 5.0, Ur Specific [place] >= 1.030, Urine Protein 2+, Urine Glucose (UA) Negative, Urine Ketones Trace, Urine Blood Negative, Urine Nitrate Negative, Urine Bilirubin Negative, Urine Urobilinogen 1.0, Ur Leukocyte Esterase Negative, Urine WBC Occasional, Ur Squamous Epith Cells Occasional, Urine Bacteria Trace Result diagrams: 06/18/21 11:49 06/18/21 11:49 Orders (Tests/Meds): ORDERS Category Date Time Status Consult to Cardiology [CONS] Routine Cons 06/18/21 13:03 Active Rapid PCR Covid and Flu A/B Stat Lab 06/18/21 13:05 Received Troponin I Q3 Lab 06/18/21 14:30 Ordered Troponin I Q3 Lab 06/18/21 17:30 Ordered - Radiology Data #1 Image(s): Chest Image Reviewed: Yes I reviewed the patient's radiology image, Yes I have reviewed radiologist's interpretation Preliminary Findings: Abnormal (Cardiomegaly. Dual-chamber pacemaker. Mild CHF. ) Procedure(s): XR chest 2V Accession Number(s): [id number] cc: Kuldip Tapia ; Estuardo Conklin MD~ FINAL REPORT CLINICAL HISTORY: soa, cou
--- NOTE | 2021-06-18 11:20 | ECG_ITS ---
APPROVED REPORT Exam: Resting ECG HR:66 bpm ECG Measurements Heart Rate 66 AXES DC 293 P 24 QRSd 193 QRS -27 QT 521 T 188 QTc 535 Conclusion SINUS RHYTHM WITH FIRST DEGREE AV BLOCK INTRAVENTRICULAR CONDUCTION DELAY [130+ ms QRS DURATION] ABNORMAL ECG UNCONFIRMED REPORT Electronically signed by : Juan C Josue MD 06/19/2021 12:13:03
--- NOTE | 2021-06-18 11:28 | XR_ITS ---
FINAL REPORT CLINICAL HISTORY: soa, cough COMPARISON: 04/15/2018 FINDINGS: TWO-VIEW CHEST There is cardiomegaly with pulmonary vascular congestion, worse since previous. The patient is status post median sternotomy. Left subclavian pacer is identified. There is mild atelectasis in the right lung with small right effusion. There is no pneumothorax. IMPRESSION: Worsening pulmonary vascular congestion. Right lung atelectasis with small right effusion. Reviewed, Interpreted and Dictated by Estuardo Conklin III, MD Transcribed by Joanie Plascencia Authenticated by Estuardo Conklin III, MD on 06/18/2021 12:49:03 PM [facility]
[2021-06-18 11:30] VITALS: BP 112/70; PULSE 67; RESP 14; O2SAT 97
--- NOTE | 2021-06-18 11:54 | PC.NURSE ---
Patient back from x-ray
[2021-06-18 11:58] LABS: Chloride 101 mmol/L (98-107)
[2021-06-18 11:59] LABS: Basophils # 0.1 K/mm3 (0-0.2); Basophils % 2.6 % (0.1-2.0); Eosinophils # 0.2 K/mm3 (0.0-0.4); Eosinophils % 3.5 % (0.1-12.0); Hematocrit 43.6 % (42.0-52.0); Hemoglobin 14.1 g/dL (14.1-18.0); Lymphocytes # 0.6 K/mm3 (0.7-4.5); Lymphocytes % 14.9 % (10-50); Mean Corpuscular HGB Conc 32.4 g/dL (31.8-35.4); Mean Corpuscular Hemoglobin 30.9 pg (27.0-31.2); Mean Corpuscular Volume 95.4 fl (80-94); Mean Platelet Volume 10.9 fl (7.4-10.4); Monocytes # 0.3 K/mm3 (0.1-1.0); Monocytes % 5.8 % (1.7-9.3); Neutrophils # 3.1 K/mm3 (1.8-7.8); Neutrophils % 73.2 % (37.0-80.0); Platelet Count 137 K/mm3 (142-424); Potassium 3.9 mmoL/L (3.5-5.1); Red Blood Count 4.57 M/mm3 (4.60-6.20); Red Cell Distribution Width 15.1 % (11.5-17.5); Sodium 137 mmol/L (136-145); White Blood Count 4.2 K/mm3 (4.8-10.8)
[2021-06-18 12:00] VITALS: BP 114/81; PULSE 67; RESP 21; O2SAT 99
[2021-06-18 12:01] LABS: Alanine Aminotransferase 19 U/L (12-78); Albumin Level 4.2 g/dl (3.5-5.0); Albumin/Globulin Ratio 1.4 (1.1-1.8); Alkaline Phosphatase 72 U/L (38-126); Anion Gap 13.9 mEq/L (5-15); Aspartate Amino Transferase 25 U/L (17-59); Bilirubin,Total 0.8 mg/dl (0.2-1.3); Blood Urea Nitrogen 19 mg/dl (9-20); Carbon Dioxide 26 mmol/L (22.0-30.0); Creatinine Clearance Estimated 54 mL/min (50-200); Estimated Glomerular Filt Rate 54 ml/min (>60); GFR (African American) 65 ML/MIN (>60); Globulin 3.1 g/dL (1.3-3.2); Glucose 173 mg/dl (74-100); Total Protein,Serum 7.3 g/dl (6.3-8.2)
[2021-06-18 12:12] LABS: NT Pro Brain Natriuretic Pep. 9590 pg/mL (0-450)
[2021-06-18 12:18] LABS: Troponin I 0.01 ng/ml (0.00-0.034)
[2021-06-18 12:30] VITALS: BP 105/73; PULSE 64; RESP 21; O2SAT 98
[2021-06-18 12:45] LABS: Microscopic, Urine URINE MICROSCOPIC (MICROSCOPIC)
--- NOTE | 2021-06-18 12:46 | PC.NURSE ---
rounded on pt at this time, pt requesting water, EVA ROBLES okayed pt to have water. pt family at pt states no other needs at this this time, will continue to monitor
[2021-06-18 12:47] LABS: Appearance,Urine CLEAR (Clear); Bilirubin,Urine Negative (Negative); Blood, Urine Negative (Negative); Color,Urine YELLOW (Yellow); Glucose,Urine (UA) Negative (Negative); Ketones,Urine TRACE (Negative); Leukocyte Esterase,Urine Negative (Negative); Nitrate,Urine Negative (Negative); Protein,Urine 2+ (Negative); Specific Gravity, Urine >= 1.030 (1.005-1.030)
[2021-06-18 13:00] VITALS: BP 113/73; PULSE 66; RESP 16; O2SAT 98
[2021-06-18 13:04] LABS: Bacteria,Urine Trace /lpf; Squamous Epithelial Cell,Urine Occasional #/hpf (0-5); WBC,Urine Occasional #/hpf (0-3)
--- NOTE | 2021-06-18 13:08 | PC.NURSE ---
EVA ROBLES spoke with may del rio
[2021-06-18 13:32] LABS: Coronavirus 19, PCR Not Detected (NotDetected); Influenza B, PCR Not Detected (NotDetected)
--- NOTE | 2021-06-18 13:40 | PC.NURSE ---
bernadine del rion at BS
[2021-06-18 14:17] VITALS: BP 103/68; PULSE 64; RESP 18; TEMP 36.4; O2SAT 98
[2021-06-18 15:06] LABS: Influenza A, PCR Detected (NotDetected)
== END 2021-06-18 14:17 | disposition home or self-care (01) ==
PROVIDERS: Emergency Provider Emergency Medicine; PCP Family Medicine
DX: I50.23 Acute on chronic systolic (congestive) heart failure (principal); E11.9 Type 2 diabetes mellitus without complications; Z95.0 Presence of cardiac pacemaker
CPT/HCPCS: 71046; 80053; 81001; 83880; 84484; 85025; 93005; 96374; 99284; C9803; U0003; U0005

== ENCOUNTER → 2021-06-26 10:56 | Outpatient (CLI) | payer MEDICARE, SELFPAY | PROVIDERS: Visit Provider Internal Medicine | DX: E78.2 Mixed hyperlipidemia (principal); I25.10 Atherosclerotic heart disease of native coronary artery without angina pectoris; I25.5 Ischemic cardiomyopathy; I50.22 Chronic systolic (congestive) heart failure; R94.31 Abnormal electrocardiogram [ECG] [EKG]; Z95.1 Presence of aortocoronary bypass graft; Z95.810 Presence of automatic (implantable) cardiac defibrillator; Z01.812 Encounter for preprocedural laboratory examination; Z11.52 Encounter for screening for COVID-19 | CPT/HCPCS: C9803; U0003; U0005 ==

== ENCOUNTER 2021-06-28 09:20 | Day surgery (SDC) | payer MEDICARE, SELFPAY ==
--- NOTE | 2021-06-18 13:48 | HMH.CNCARD ---
History of Present Illness Consult date: 06/18/21 Requesting physician: Jose Bravo Consult reason: congestive heart failure, shortness of breath Chief complaint: SOA History of present illness: This is a 75-year-old white gentleman who presented to the emergency department with complaints of shortness of breath. He states that he has been having progressively worsening shortness of breath for approximately a week. He states with minimal exertion he gets quite winded. He states that this is associated with feeling very fatigued and having a poor appetite. It is associated with a productive cough. He states he is coughing up clear sputum/phlegm. He did see Dr. Lugo last week and was set up for an upgrade to his AICD to a biventricular AICD. He is scheduled to have this procedure done on Monday. He states that he came into the emergency department due to the worsening shortness of breath and feeling like he may be dehydrated. He denies any fever, chills, nausea, vomiting, diarrhea. He does have associated orthopnea with his shortness of breath. He denies any chest pain or chest pressure. [facility] History I have reviewed the patient's past medical history: Yes Medical History: Reports:: Cardiomyopathy, Congestive Heart Failure, Coronary Artery Disease, Diabetes Mellitus Type 2, Internal Pacemaker Denies:: Cancer *Have you ever received a pneumonia vaccine?: Yes *Have you received a flu vaccine this season?: Yes Other Surgeries: Yes: CABG (1991), Cardiac Catheterization, Pacemaker - *Social History Smoking Status: Never smoker Alcohol Intake: never Substance Use Type: denies use *Occupational Status:: other Household Members: none *Travel in the last 8 weeks: None Family Hx:: Coronary Artery Disease Meds Home Medications Medication Instructions Recorded Confirmed Type Pravastatin Sodium [Pravachol 40mg 40 mg PO DAILY 04/15/18 06/09/21 History Tablet] Spironolactone [Spironolactone 25 mg PO DAILY 04/15/18 06/09/21 History 25mg Tablet] carvediloL [Coreg 25mg Tablet] 25 mg PO BID 04/15/18 06/09/21 History gemfibroziL [Gemfibrozil] 600 mg PO DAILY 04/15/18 06/09/21 History glipiZIDE [Glipizide ER] 5 mg PO BID 04/15/18 06/09/21 History Pantoprazole Sodium [Protonix 40mg 40 mg PO DAILY 04/16/18 06/09/21 History tablet] Potassium Chloride [Micro-K 10mEq 10 meq PO DAILY #30 capsule.er 04/16/18 06/09/21 Rx cap] sitagliptin 50 mg-metformin 1,000 1 tab PO BID 07/24/18 06/09/21 History mg tablet clopidogrel 75 mg tablet 75 mg PO DAILY tab 04/22/19 06/09/21 History furosemide 40 mg tablet 40 mg PO .every other day #30 tab 11/11/19 06/09/21 Rx sacubitril 24 mg-valsartan 26 mg 1 tab PO BID #180 tab 11/11/19 06/09/21 Rx tablet Allergies Allergy/AdvReac Type Severity Reaction Status Date / Time dapagliflozin [From [facility]] AdvReac Mild yeast Verified 06/09/21 13:12 infection Exam Narrative: EKG is sinus rhythm with IVCD rate of 66. - Constitutional no acute distress, average body habitus - *Routine HEENT Exam Head: Present: normocephalic, atraumatic Eye: Present: EOMI, PERRL ENT: Present: mucous membranes moist - *Routine Neck Exam Present: supple, full ROM, normal carotid upstroke. Absent: JVD, carotid bruit, lymphadenopathy - *Routine Respiratory Exam Present: CTA bilaterally - *Routine Cardiovascular Exam Present: RRR, Normal S1, Normal S2. Absent: murmur - *Routine Abdominal Exam Present: soft, normoactive bowel sounds. Absent: tenderness, distended - *Routine Extremities Exam Present: full ROM, pulses intact, normal capillary refill. Absent: cyanosis, clubbing, edema - *Routine Skin Exam Present: intact, warm. Absent: erythema, rash - *Routine Neurological Exam Present: alert, oriented X3, CN II-XII intact. Absent: sensory deficit, motor deficit - Routine Psychiatric Exam Present: normal affect, normal thought process Review of Systems - Revie
--- NOTE | 2021-06-28 | IR_ITS ---
APPROVED REPORT Patient Location: Outpatient Customer Experience Analyst: HANK Banks RT (R) PROCEDURES 1. Pocket revision for biventricular pacemaker generator with cardiac resynchronization/defibrillator therapy. 2. Placement of left ventricular sensing pacing lead via the coronary sinus. 3. Permanent cardiac resynchronization plus AICD generator device. INDICATION Systolic Congestive Heart Failure, ejection <35%, Wide QRS >120ms, [place] Heart Assoication Class 3 Congestive Heart Failure Informed consent was obtained prior to the procedure. COMPLICATIONS NONE Estimated Blood Loss: LESS THAN 10 ML TECHNIQUE 1% Lidocaine with epinephrine used to anesthetized the left anterior aspect of the chest. Scalpel was used to make the initial cutaneous incision while electrocautery was used to dissect down tinto the fascia. The fascia was lifted off the pectoralis muscle and digitally manipulated creating a pocket for the defibrillator. The patient was then placed in Trendelenburg position and the subclavian vein was accessed 1 time via the Selinger technique. Using fluoroscopic guidance, contrast was used to visualize the coronary sinus, the left ventricular lead was placed into the coronary sinus. Electronic interrogation proved acceptable thresholds and voltage within the lead. Using 3-0 silk, the left ventricular lead was then secured into place and sheath peeled away. 1 gram of Ancef was used to flush the pocket. All leads were connected to generator and tested via computer. The defibrillator then secured to the fascia. Monocryl was used to close the subcutaneous layers while jarred were used to close the cutaneous layer. A pressure dressing was placed and the patient was transferred to the postop holding area in stable condition for postoperative care. INTERROGATION Generator Model number: VIGILANT X4 YARN DYER-D IS-1/DF4/IS4 Generator Serial number: [id number] Atrial lead model number: st jam[employer] [id number]/52 Atrial lead serial number: [id number] P-wave: 2.5 MV Impedence: 450 OHMS Threshold: 0.7 V @0.4MS Right Ventricular lead model number: QUAD [id number] Right Ventricular lead serial number: [id number] R-wave: 12.0MV Impedence: 650 OHMS Threshold: 0.7V @ 0.4MS Left Ventricular lead model number: [employer] QUAD [id number] Left Ventricular lead serial number: [id number] R-wave: 7.5 MV Impedence: 815 OHMS Threshold: 1.5 V @ 1.0 MS Pacing Parameters: Mode: DDDR Base/Max Track:60 ppm / 130 ppm VF: 200 BPM, 2.5 SEC., QUICK CONVERT, 41J X 8 VT: 170 BPM, 5.0 SEC. No diaphragmatic stimulation at 10 volts. IMPRESSION 1. Successful pocket revision for biventricular pacemaker generator with cardiac resynchronization/defibrillator therapy. 2. Successful placement of left ventricular sensing pacing lead via the coronary sinus. 3. Successful permanent cardiac resynchronization plus AICD generator device. PLAN 1. POST OP WOUND CARE Electronically signed by : Leobardo Lugo MD 06/30/2021 13:59:04
[2021-06-28 09:27] VITALS: BMI 29.4
--- NOTE | 2021-06-28 14:49 | SUR.OPER ---
Case intercepted d/t emergent patient, case resume at this time
--- NOTE | 2021-06-28 15:56 | XR_ITS ---
FINAL REPORT CLINICAL HISTORY: Confirm pacemaker/AID placement COMPARISON: June 18, 2021 FINDINGS: SINGLE VIEW CHEST. There are postoperative changes from median sternotomy. The heart is normal in size. A left subclavian pacemaker is present. The mediastinum is unremarkable. There is mild left lung base atelectasis. There is no pneumothorax. IMPRESSION: A left subclavian pacemaker is present. Mild left lung base atelectasis. Reviewed, Interpreted and Dictated by Estuardo Conklin III, MD Transcribed by Rachel Velasco Authenticated by Estuardo Conklin III, MD on 06/28/2021 05:00:42 PM [facility]
[2021-06-28 16:00] VITALS: BP 74/40; BP 86/54; PULSE 70; RESP 18; RESP 20; O2SAT 100; O2SAT 93
[2021-06-28 16:15] VITALS: BP 97/61; PULSE 70; RESP 18; O2SAT 97
[2021-06-28 16:30] VITALS: BP 96/61; PULSE 94; RESP 18; O2SAT 99
[2021-06-28 16:45] VITALS: BP 107/59; PULSE 70; RESP 18; O2SAT 99
== END 2021-06-28 18:07 | disposition home or self-care (01) ==
LOC: CATHLAB 09:25
PROVIDERS: PCP Family Medicine; Visit Provider Internal Medicine
PROC: 0JH609Z Insertion of Cardiac Resynchronization Defibrillator Pulse Generator into Chest Subcutaneous Tissue and Fascia, Open Approach (ICD-10-PCS; CPT 33249; principal; 2021-06-28 11:30)
DX: I25.5 Ischemic cardiomyopathy (principal); I50.23 Acute on chronic systolic (congestive) heart failure; Z95.1 Presence of aortocoronary bypass graft; E11.9 Type 2 diabetes mellitus without complications; Z79.84 Long term (current) use of oral hypoglycemic drugs; Z79.899 Other long term (current) drug therapy; I11.0 Hypertensive heart disease with heart failure; Z82.49 Family history of ischemic heart disease and other diseases of the circulatory system
CPT/HCPCS: 33225; 33264; 71045; C1769; C1882; C1894; C1900; J2704; Q9967

== ENCOUNTER 2021-10-03 17:51 | Emergency (ER) | payer MEDICARE, SELFPAY ==
[2021-10-03 17:53] VITALS: BP 119/78; PULSE 90; RESP 18; TEMP 36.6; O2SAT 99; BMI 26.2
[2021-10-03 18:13] LABS: Microscopic, Urine URINE MICROSCOPIC (MICROSCOPIC)
[2021-10-03 18:22] VITALS: BP 119/78; PULSE 86; RESP 16; O2SAT 98
[2021-10-03 18:22] LABS: Appearance,Urine CLOUDY (Clear); Blood, Urine 3+ (Negative); Color,Urine BROWN (Yellow); Glucose,Urine (UA) Negative (Negative); Ketones,Urine TRACE (Negative); Leukocyte Esterase,Urine 2+ (Negative); Nitrate,Urine POSITIVE (Negative); PH,Urine 6.5 (5.0-8.5); Protein,Urine 3+ (Negative); Specific Gravity, Urine 1.025 (1.005-1.030)
[2021-10-03 18:36] LABS: Bilirubin,Urine 2+ (Negative)
[2021-10-03 18:55] LABS: Bacteria,Urine 1+ /lpf; RBC,Urine TNTC #/hpf (0-3)
[2021-10-03 19:02] VITALS: BP 111/76; PULSE 84; O2SAT 96
--- NOTE | 2021-10-03 20:12 | CT_ITS ---
PROCEDURE INFORMATION: Exam: CT Abdomen And Pelvis Without Contrast Exam date and time: 10/03/2021 8:21 PM Age: 76 years old Clinical indication: Other: Hematuria; Additional info: Hematuria, low back pain, stone eval TECHNIQUE: Imaging protocol: Computed tomography of the abdomen and pelvis without contrast. Radiation optimization: All CT scans at this facility use at least one of these dose optimization techniques: automated exposure control; mA and/or kV adjustment per patient size (includes targeted exams where dose is matched to clinical indication); or iterative reconstruction. COMPARISON: [facility] CT angio chest 04/15/2018 2:42 PM FINDINGS: Tubes, catheters and devices: Partially visualized cardiac pacing wires. Lungs: Patchy opacities at the lung bases. Heart: Cardiomegaly. Coronary artery calcifications. Diaphragm: Small hiatal hernia. Liver: Parenchymal enhancement is not evaluated without contrast. No hepatomegaly. Gallbladder and bile ducts: No calcified stones. No ductal dilation. Pancreas: Parenchymal enhancement is not evaluated without contrast. No ductal dilation. Spleen: Parenchymal enhancement is not evaluated without contrast. No splenomegaly. Adrenal glands: No mass. Kidneys and ureters: Nonobstructing left-sided renal calcifications measuring up to 4 mm. No hydronephrosis. Stomach and bowel: Diverticulosis coli without evidence for diverticulitis. Appendix: No evidence of appendicitis. Intraperitoneal space: No free air. No significant fluid collection. Vasculature: Calcified atherosclerosis. 5.5 cm abdominal aortic aneurysm which is incompletely evaluated without contrast. Lymph nodes: No enlarged lymph nodes. Urinary bladder: High-density material within the posteroinferior bladder measuring approximately 2.1 x 2.6 cm. Reproductive: Prostate appears enlarged measuring 5.7 x 3.4 cm. Bones/joints: No acute fracture. Soft tissues: Limited evaluation without contrast. 1.9 x 3.5 cm fat containing right inguinal hernia. IMPRESSION: 1. High-density material within the posteroinferior bladder which may be related to the provided history of hemorrhage. Mucosal mass cannot be excluded. 2. Nonobstructing left-sided renal calcifications measuring up to 4 mm. 3. Patchy opacities at the lung bases which may be chronic however pneumonitis should be clinically excluded. 4. Cardiomegaly. 5. 5.5 cm abdominal aortic aneurysm which is incompletely evaluated without contrast. 6. Diverticulosis coli without evidence for diverticulitis. 7. Prostate appears enlarged for which correlation with PSA is recommended. 8. Small hiatal hernia.
--- NOTE | 2021-10-03 21:05 | PC.NURSE ---
attempted bladder scan read was under 50mls
--- NOTE | 2021-10-03 21:23 | PC.NURSE ---
Pt refuses to have blood drawn for labs. Pt state, We've been here 3 hours and are starting to get aggravated. notified.
--- NOTE | 2021-10-03 21:43 | HMH.EDGENADL ---
ED Disposition Clinical Impression: Urinary tract infection Qualifiers: Urinary tract infection type: site unspecified Hematuria presence: with hematuria Qualified Code(s): N39.0 - Urinary tract infection, site not specified; R31.9 - Hematuria, unspecified AAA (abdominal aortic aneurysm) Qualifiers: Presence of rupture: without rupture Qualified Code(s): I71.4 - Abdominal aortic aneurysm, without rupture Hematuria Qualifiers: Hematuria type: unspecified type Qualified Code(s): R31.9 - Hematuria, unspecified Disposition: Left Against Medical Advice Condition on Discharge: Undetermined Instructions: DI for Urinary Tract Infection (UTI), DI for Urinary Tract Infection in Children Additional Instructions: Please follow-up with Dr. Pelayo for urology for further evaluation of difficulty urinating, enlarged prostate, potential mucosal mass within bladder the significance of which is unknown. Please follow-up with your primary care physician for abdominal aortic aneurysm,(AAA) which requires evaluation by vascular surgeon. Please also talk to your primary care physician about diverticulosis and ways to manage this. Please take cefdinir as prescribed. Return to the emergency department with any new or worsening symptoms including continued bleeding, difficulty urinating, worsening pain, fainting or any other new or concerning symptoms. Prescriptions: Cefdinir [Omnicef 300mg Capsule] 300 mg PO BID #20 cap Transmission Status: Pending to [facility] by Shon DIAZ Referrals: Kuldip Tapia [Primary Care Provider] - 3 days (Pierce with Urology) - Critical Care Critical Care Time: No Attestation: On 10/03/21, the high probability of a clinically significant, sudden or life threatening deterioration of the following system(s) required my full and direct attention, intervention and personal management. The time I documented below is in addition to time spent performing reported procedures but includes the following listed in this critical care notation. Medical Decision Making - Luis Inquiry Pt receiving controlled substance: No Vital Signs: 10/03/21 17:53 10/03/21 18:22 10/03/21 19:02 Temperature 97.9 F Temperature Source Oral Pulse Rate 86 84 Pulse Rate [Radial] 90 Respiratory Rate 18 16 Blood Pressure 119/78 111/76 Blood Pressure [Right Arm] 119/78 Blood Pressure Mean [Right Arm] 91 Blood Pressure Source [Right Arm] Automatic Cuff Blood Pressure Position [Right Arm] Sitting 02 Sat by Pulse Oximetry 99 98 96 Oxygen Delivery Method Room Air - Lab Data Lab Results 10/03/21 17:58: Urine Color Brown, Urine Appearance Cloudy, Urine pH 6.5, Ur Specific [place] 1.025, Urine Protein 3+, Urine Glucose (UA) Negative, Urine Ketones Trace, Urine Blood 3+, Urine Nitrate Positive, Urine Bilirubin 2+ A, Urine Urobilinogen 4.0, Ur Leukocyte Esterase 2+ A, Urine RBC Tntc, Urine WBC 5-10, Ur Squamous Epith Cells 5-10, Urine Bacteria 1+ Orders (Tests/Meds): ORDERS Category Date Time Status Urine Culture Stat Micro 10/03/21 17:58 Received Medical Decision Narrative: 76-year-old male presents emergency department with history of urinary incontinence with standing, feeling like he has to urinate but cannot, gross blood in urine, no trauma no fever, unchanged shortness of breath and dysuria. Urinalysis shows too many red blood cells to count, nitrite positivity, bacteria with some contaminant, given patient's dysuria, we are treating with cefdinir prescription. Patient refused labs and is ultimately signing out AGAINST MEDICAL ADVICE, with patient understanding that we are unable to rule out kidney injury, anemia, thrombocytopenia and other potentially life-threatening etiologies without complete work-up. CT abdomen pelvis was performed which showed high density material in posterior inferior bladder which may be due to hemorrhage versus mucosal mass, patient was informed of this and instructed t
[2021-10-03 22:06] VITALS: BP 110/75; PULSE 84; RESP 18; TEMP 36.8; O2SAT 99
--- NOTE | 2021-10-03 22:07 | PC.NURSE ---
Pt left ama. Given info for office and advised to f/u c pcp.
== END 2021-10-03 22:02 | disposition left against medical advice (07) ==
PROVIDERS: Emergency Provider Student in an Organized Health Care Education/Training Program; PCP Family Medicine
DX: N39.0 Urinary tract infection, site not specified (principal); R31.9 Hematuria, unspecified; N20.0 Calculus of kidney; R91.8 Other nonspecific abnormal finding of lung field; I50.9 Heart failure, unspecified; Z53.29 Procedure and treatment not carried out because of patient's decision for other reasons
CPT/HCPCS: 74176; 81001; 87086; 87088; 87186; 99284

== ENCOUNTER → 2021-11-03 14:06 | Outpatient (CLI) | payer MEDICARE, SELFPAY ==
--- NOTE | 2021-11-03 14:20 | XR_ITS ---
FINAL REPORT CLINICAL HISTORY: dyspnea COMPARISON: 06/28/2021 FINDINGS: TWO-VIEW CHEST There is cardiomegaly. The patient is status post median sternotomy. Left subclavian ICD is present. The lungs are clear. There is no pneumothorax. There are moderate degenerative changes of the thoracic spine. IMPRESSION: No acute cardiopulmonary process. Reviewed, Interpreted and Dictated by Estuardo Conklin III, MD Transcribed by Joanie Plascencia Authenticated and [facility]
[2021-11-03 15:02] LABS: Basophils # 0.1 K/mm3 (0-0.2); Basophils % 1.1 % (0.1-2.0); Eosinophils # 0.3 K/mm3 (0.0-0.4); Eosinophils % 4.5 % (0.1-12.0); Hematocrit 46.4 % (42.0-52.0); Lymphocytes # 0.8 K/mm3 (0.7-4.5); Lymphocytes % 12.7 % (10-50); Mean Corpuscular HGB Conc 30.3 g/dL (31.8-35.4); Mean Corpuscular Hemoglobin 30.4 pg (27.0-31.2); Mean Corpuscular Volume 100.3 fl (80-94); Mean Platelet Volume 11.1 fl (7.4-10.4); Monocytes # 0.5 K/mm3 (0.1-1.0); Monocytes % 7.5 % (1.7-9.3); Neutrophils % 74.2 % (37.0-80.0); Platelet Count 150 K/mm3 (142-424); Red Blood Count 4.62 M/mm3 (4.60-6.20); Red Cell Distribution Width 16.4 % (11.5-17.5); White Blood Count 6.7 K/mm3 (4.8-10.8)
[2021-11-03 15:33] LABS: Chloride 100 mmol/L (98-107); Potassium 4.5 mmoL/L (3.5-5.1); Sodium 141 mmol/L (136-145)
[2021-11-03 15:35] LABS: Alanine Aminotransferase 14 U/L (12-78); Alkaline Phosphatase 75 U/L (38-126); Anion Gap 16.5 mEq/L (5-15); Aspartate Amino Transferase 22 U/L (17-59); Bilirubin,Indirect 0.6 mg/dL (0.0-0.9); Bilirubin,Total 0.6 mg/dl (0.2-1.3); Bilirubin,Unconjugated 0.7 mg/dL (0.0-1.1); Blood Urea Nitrogen 27 mg/dl (9-20); Carbon Dioxide 29 mmol/L (22.0-30.0); Cholesterol 126 mg/dl (140-200); Estimated Glomerular Filt Rate 49 ml/min (>60); GFR (African American) 59 ML/MIN (>60); Triglycerides 107 mg/dl (30-150); VLDL Cholesterol 21 mg/dL (0-40)
[2021-11-03 15:36] LABS: Albumin Level 4.5 g/dl (3.5-5.0); Calcium 8.4 mg/dl (8.4-10.2); Glucose 165 mg/dl (74-100); HDL Cholesterol 21 mg/dl (40-60); Total Protein,Serum 7.5 g/dl (6.3-8.2)
[2021-11-03 15:52] LABS: Free T4 (Free Thyroxine) 1.11 ng/dl (0.78-2.19)
[2021-11-03 16:07] LABS: Thyroid Stimulating Hormone 2.75 uIU/mL (0.465-4.68)
[2021-11-05 14:14] LABS: Direct LDL Cholesterol 83 mg/dL (100-129)
== END ==
PROVIDERS: PCP Family Medicine; Visit Provider Nurse Practitioner Family
DX: E78.2 Mixed hyperlipidemia (principal); I25.10 Atherosclerotic heart disease of native coronary artery without angina pectoris; I25.5 Ischemic cardiomyopathy; I50.22 Chronic systolic (congestive) heart failure; I50.23 Acute on chronic systolic (congestive) heart failure; I71.4 Abdominal aortic aneurysm, without rupture; R06.02 Shortness of breath; Z95.1 Presence of aortocoronary bypass graft; Z95.810 Presence of automatic (implantable) cardiac defibrillator; I11.0 Hypertensive heart disease with heart failure
CPT/HCPCS: 36415; 71046; 80048; 80061; 80076; 83735; 84439; 84443; 85025

== ENCOUNTER → 2021-11-08 11:00 | Outpatient (CLI) | payer MEDICARE, SELFPAY ==
--- NOTE | 2021-11-08 11:04 | CA_ITS ---
APPROVED REPORT EXAM: Comprehensive 2D, Doppler, and color-flow Echocardiogram Cut Press Operator: GENOVEVA Diaz, RVS Ht: 5 ft 9 in Wt: 174lbs BSA: 1.95 BP: 119/77 mmHg Indications: Dilated CM, SOA, CAD, AAA, AICD, CABG, Murmurs Echo Enhancing Agent Indication: Pt declined 2D Dimensions Aortic Root 2.68 cm LA Volume 81.70 mL Left Atrium 4.59 cm LA Volume Index 41.90 mL/m2 (M/F) 16-34 LVOT 1.99 cm (M/F) 1.5-2.5 M-Mode Dimensions RVDd 3.39 cm (0.9-2.6) LA Diam 3.63 cm (1.9-4.0) LVDd 7.18 cm (3.5-5.7) Ao Diam 3.45 cm (2.0-3.7) LVDs 6.15 cm (3.5-5.7) IVSd 1.16 cm (0.6-1.1) PWd 1.07 cm (0.6-1.1) EF (Teich) 29.60% EPSs 3.32 cm FS 14.30% EDV (Teich) 270.50 mL TAPSE 1.04 (<1.7) ESV (Teich) 190.40 mL LV Diastology E Decel Time 153.00 (160-240 msec) E/A Ratio 2.91 MED E' 3.80 (< 7 cm/sec) MED A' 10.00 cm/s E'/MED E' Ratio 26.50 (>14) LAT E' 2.00 (<10 cm/sec) LAT A' 3.40 cm/s E/LAT E' Ratio 50.35 (>14) Aortic Valve LVOT Max 52.00 (70-110 cm/s) LVOT VTI 10.65 cm AoV Peak Merritt. 283.00 (50-130 cm/s) AO Peak GR. 32.10 mmHg AO Mean GR. 18.20 (<5 mmHg) AO VTI 61.14 (18-25 cm) KYAW (VTI) 0.54 (2.5-4.5 cm2) Mitral Valve MV A Velocity 35.00 (40-130 cm/s) E/A Ratio 2.91 MV Decel. Time 153.00 (160-240 ms) MV PHT 43.00 ms Pulmonary Valve PV Peak Velocity 52.00 (50-150 cm/s) AL End VMAX 215.00 cm/s Tricuspid Valve TR P. Velocity 216.00 cm/s RAP Estimate 10.00 mmHg RVSP 28.60 mmHg Left Ventricle Left atrium is mildly enlarged, left ventricle is mildly dilated, severe left ventricular systolic dysfunction, estimated ejection fraction 20%, left ventricle is globally hypokinetic. Doppler evidence of raise left atrial pressure and left ventricular end-diastolic pressure and low cardiac output. Right Ventricle Right atrium and right ventricle are normal size and contractility, there is pacemaker leads in the right ventricle. Aortic Valve Aortic valve is thickened and calcified with restriction in the leaflet mobility, the maximum velocity across the aortic valve is 2.8 m/s, resulting in a mean gradient across valve of 19 mmHg, due to low cardiac output state valve area is calculated 0.6 cm???, this likely represents low-flow low gradient severe aortic stenosis Mitral Valve Mitral valve leaflets are minimally thickened, there is mild mitral regurgitation. Tricuspid Valve Tricuspid valve is minimally thickened, there is mild tricuspid regurgitation, tricuspid regurgitation jet velocity is inadequate for calculation of the right ventricular systolic function. Pulmonic Valve Pulmonic valve is poorly visualized. Great Vessels Aortic root is normal size. Inferior vena cava is poorly visualized. Pericardium No significant pericardial effusion noted. Conclusion 1. Biatrial enlargement, dilated left ventricle, severe reduced left ventricular systolic function, visually estimated ejection fraction 20%, left ventricle is globally hypokinetic, Doppler evidence of a left ventricular end-diastolic pressure as well as left atrial pressure. 2. Thickened and calcified aortic valve there is low cardiac output state, valve area is calculated 0.6 cm??? raising the concerns for presence of low-flow low gradient severe aortic stenosis. The mean gradient across the aortic valve is only 19 mmHg. 3. Mild mitral and tricuspid regurgitation. 4. No significant pericardial effusion. 5. Inferio
== END ==
PROVIDERS: PCP Family Medicine; Visit Provider Nurse Practitioner Family
DX: E78.2 Mixed hyperlipidemia (principal); I25.10 Atherosclerotic heart disease of native coronary artery without angina pectoris; I25.5 Ischemic cardiomyopathy; I50.22 Chronic systolic (congestive) heart failure; I50.23 Acute on chronic systolic (congestive) heart failure; I71.4 Abdominal aortic aneurysm, without rupture; R06.02 Shortness of breath; Z95.1 Presence of aortocoronary bypass graft; Z95.810 Presence of automatic (implantable) cardiac defibrillator; I11.0 Hypertensive heart disease with heart failure
CPT/HCPCS: 93306

== ENCOUNTER → 2021-11-10 15:25 | Outpatient (CLI) | payer MEDICARE, SELFPAY ==
[2021-11-10 16:45] LABS: Chloride 98 mmol/L (98-107); Potassium 4.2 mmoL/L (3.5-5.1); Sodium 140 mmol/L (136-145)
[2021-11-10 16:48] LABS: Anion Gap 16.2 mEq/L (5-15); Blood Urea Nitrogen 34 mg/dl (9-20); Calcium 8.6 mg/dl (8.4-10.2); Carbon Dioxide 30 mmol/L (22.0-30.0); Estimated Glomerular Filt Rate 45 ml/min (>60); GFR (African American) 55 ML/MIN (>60); Glucose 150 mg/dl (74-100)
== END ==
PROVIDERS: Nurse Practitioner; PCP Family Medicine; Visit Provider Nurse Practitioner Family
DX: I25.10 Atherosclerotic heart disease of native coronary artery without angina pectoris (principal); I35.0 Nonrheumatic aortic (valve) stenosis
CPT/HCPCS: 36415; 80048

== ENCOUNTER → 2021-11-15 17:27 | Outpatient (CLI) | payer MEDICARE, SELFPAY | PROVIDERS: PCP Family Medicine; Visit Provider Internal Medicine | DX: Z45.010 Encounter for checking and testing of cardiac pacemaker pulse generator [battery] (principal) ==

== ENCOUNTER 2022-03-02 12:51 | Inpatient (IN) | payer MEDICARE, SELFPAY ==
[2022-03-02] VITALS (45 sets, daily range): BP systolic 77–99; BP diastolic 42–72; PULSE 56–95; RESP 14–20; TEMP 36.4–37; O2SAT 90–100; BMI 26.6; BMI 26.2
--- NOTE | 2022-03-02 07:00 | IR_ITS ---
APPROVED REPORT Patient Location: Outpatient Manhole Stripper: HANK oGld RT (R) PROCEDURES Selective coronary angiogram Selective engage the left internal mammary artery to the LAD Selective engagement saphenous vein graft to the circumflex artery Selective engage in the saphenous vein graft to the right coronary Drug-eluting stent deployment to the mid left internal mammary artery supplying the LAD INDICATION Coronary artery disease, Worsening angina pectoris, Known severe aortic stenosis with preoperative evaluation for upcoming TAVR, History of coronary bypass surgery Informed consent was obtained prior to the procedure. COMPLICATIONS None Estimated Blood Loss: Less than 10 mls TECHNIQUE One percent lidocaine used to anesthetize the right groin. The right femoral artery was accessed via the Seldinger technique and a 5 Malaysian sheath was placed in the right femoral artery. A JL 4, JR4 catheter were used to perform left heart catheterization, left ventriculogram selective coronary angiography as well as selective engagement of the 2 vein grafts and the left internal mammary artery. At the end the diagnostic angiogram therapeutic heparin was administered and the 5 Malaysian sheath was exchanged for 6 Malaysian sheath. A 6 Malaysian ELIAS guide catheter was used to selectively intubate the left internal mammary artery and a Choice PT floppy wire was advanced down the ELIAS graft. Primary stenting could not be performed despite using a guide catheter therefore a 2.5 mm x 27 mm balloon was used to predilate the stenosis. Following this a 3.0 x 38 mm resolute Andrew stent was deployed at 24 bridget reducing the critical stenosis. Additional stenosis was identified distally therefore an additional 3 mm x 22 mm resolute Andrew stent was then deployed distal to the first stent yet still overlapping it at 20 bridget. The balloon was brought back and deployed at 24 bridget. An additional 3.5 x 26 mm resolute Andrew stent was then deployed proximal to the first 3 mm stent yet still overlapping it and deployed at 20 bridget. The balloon was then advanced and deployed at 20 and then 24 bridget in the original 3 mm stent. Excellent angiographic results were obtained with DONG-3 flow down the vessel before and after the procedure. At the end of the procedure the apparatus was removed the sheath was taped into place patient was transferred to the postop putting in stable condition ANGIOGRAPHIC RESULTS The left main artery Normal The left anterior descending artery Is proximally patent with 10 to 20% stenoses and then supplies a large diagonal artery which has stents in the proximal mid segment. The proximal portion of the diagonal stent has 30% in-stent restenosis while the mid to distal portion has a concentric 70 to 80% stenosis in an area of approximately 2 mm in diameter. Distal to the first diagonal artery the LAD is occluded. The circumflex artery Is probably a dominant vessel and has mild atheromatous plaque throughout the mid segment with 10 to 20% stenoses in the terminal obtuse marginal artery The right coronary artery Proximally occluded The BERNARD ventriculogram reveals Not performed The left ventricular end-diastolic pressure Not measured ELIAS to LAD has stents in the midsegment. The stents have 30 to 40% in-stent restenosis with a focal 90% in-stent restenosis and distal atheromatous plaque of approximately 30 to 40% Saphenous to right coronary ostially occluded Saphenous to circumflex artery ostially occluded IMPRESSION Severe disease within the left internal mammary artery supplying an LAD with successful stenting reducing the severe to critical disease to less than 10% with 3 contiguous drug-eluting stents Kn
[2022-03-02 09:23] LABS: Basophils # 0.1 K/mm3 (0-0.2); Basophils % 0.8 % (0.1-2.0); Eosinophils # 0.2 K/mm3 (0.0-0.4); Eosinophils % 2.1 % (0.1-12.0); Hematocrit 41.4 % (42.0-52.0); Hemoglobin 13.5 g/dL (14.1-18.0); Lymphocytes % 13.1 % (10-50); Mean Corpuscular HGB Conc 32.7 g/dL (31.8-35.4); Mean Corpuscular Volume 94.8 fl (80-94); Mean Platelet Volume 12.6 fl (7.4-10.4); Monocytes # 0.5 K/mm3 (0.1-1.0); Monocytes % 6.8 % (1.7-9.3); Neutrophils # 5.8 K/mm3 (1.8-7.8); Neutrophils % 77.2 % (37.0-80.0); Platelet Count 147 K/mm3 (142-424); Red Blood Count 4.36 M/mm3 (4.60-6.20); Red Cell Distribution Width 16.2 % (11.5-17.5); White Blood Count 7.6 K/mm3 (4.8-10.8)
[2022-03-02 09:28] LABS: Chloride 99 mmol/L (98-107); Potassium 3.7 mmoL/L (3.5-5.1); Sodium 140 mmol/L (136-145)
[2022-03-02 09:31] LABS: Anion Gap 18.7 mEq/L (5-15); Blood Urea Nitrogen 56 mg/dl (9-20); Calcium 8.5 mg/dl (8.4-10.2); Carbon Dioxide 26 mmol/L (22.0-30.0); Creatinine Clearance Estimated 35 mL/min (50-200); Estimated Glomerular Filt Rate 32 ml/min (>60); GFR (African American) 39 ML/MIN (>60); Glucose 126 mg/dl (74-100)
[2022-03-02 13:21] LABS: Coronavirus 19, PCR Not Detected (NotDetected); Influenza A, PCR Not Detected (NotDetected); Influenza B, PCR Not Detected (NotDetected)
--- NOTE | 2022-03-02 13:22 | HMH.PHAINT1 ---
Pharmacy Intervention Comments: home medication list verified using list from outpatient pharmacy
[2022-03-02 14:40] LABS: CATHL Activated Clotting Time 165 SEC (74-125)
[2022-03-02 14:41] LABS: CATHL Activated Clotting Time > 400 SEC (74-125)
--- NOTE | 2022-03-02 17:36 | EXP.HP ---
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 Patient received heavy contrast and was able to be perclosed, so interventional service requested admission for observation overnight. Patient has no concerns or complaints at this time [facility] Disclaimer: The information contained in this section may have been updated after the patient was seen, as this information can be updated by other users. Medical History (Updated 03/02/22 @ 14:47 by Anna Lozano RN) Aortic stenosis CAD (coronary artery disease) Dizziness Edema of both lower extremities Hernia, inguinal, left Orthopnea SOB (shortness of breath) Surgical History (Updated 03/02/22 @ 14:47 by Anna Lozano RN) H/O cardiac catheterization Hx of CABG Family History (Updated 03/02/22 @ 14:46 by Anna Lozano RN) Other Family history of diabetes mellitus type II Family history of hyperlipidemia Family history of hypertension Family history of myocardial infarction Social History (Updated 03/02/22 @ 14:49 by Anna Lozano RN) Smoking Status: Former smoker alcohol intake: never substance use type: denies use current occupational status: retired Travel in the last 8 weeks: Inside the [place] household members: spouse housing: house marital status: education level: high school current occupational exposures/hazards: No caffeine: No Review of Systems Review of Systems Review of systems:: pertinent systems reviewed and negative unless documented below Constitutional Constitutional: Reports system reviewed and no additional complaints, except as documented Eyes Eyes: Reports system reviewed and no additional complaints, except as documented *Cardiovascular Cardiovascular: Reports system reviewed and no additional complaints, except as documented *Respiratory Respiratory: Reports system reviewed and no additional complaints, except as documented *Gastrointestinal Gastrointestinal: Reports system reviewed and no additional complaints, except as documented *Genitourinary Genitourinary: Reports system reviewed and no additional complaints, except as documented *Musculoskeletal Musculoskeletal: Reports system reviewed and no additional complaints, except as documented *Neurologic Neurologic: Reports system reviewed and no additional complaints, except as documented Meds Home Medications and Allergies Home Medications Medication Instructions Recorded Confirmed Type carvedilol 25 mg tablet 25 mg PO BID Hypertension 04/15/18 03/02/22 History gemfibrozil 600 mg tablet 600 mg PO DAILY Cholesterol 04/15/18 03/02/22 History glipizide 5 mg tablet, extended 5 mg PO TID diabetes 04/15/18 03/02/22 History release 24 hr pravastatin 40 mg tablet 40 mg PO DAILY Cholesterol 04/15/18 03/02/22 History pantoprazole 40 mg tablet,delayed 40 mg PO DAILY acid reflux 04/16/18 03/02/22 History release sitagliptin phosphate 50 1 tab PO BID Diabetes 07/24/18 03/02/22 History mg-metformin 1,000 mg tablet (Lindy) clopidogrel 75 mg tablet 75 mg PO DAILY platelet inhibitor 04/22/19 03/02/22 History spironolactone 25 mg tablet 25 mg PO DAILY Fluid #30 tabs 11/10/21 03/02/22 Rx levothyroxine 25 mcg tablet 25 mcg PO DAILY hypothyroidism 02/28/22 03/02/22 History furosemide 40 mg tablet 80 mg PO DAILY Fluid 03/02/22 03/02/22 History potassium chloride 10 mEq 10 meq PO DAILY . 03/02/22 03/02/22 History capsule,extended release sacubitril 24 mg-valsartan 26 mg 1 tab PO BID Heart failure 03/02/22 03/02/22 History tablet (Entresto) New Prescriptions to Start Prescriptions: Allergies Allergy/AdvReac Type Severity Reaction Status Date / Time dapagliflozin [From Merged With [facility]] AdvReac Mild yeast Verified 02/28/22 14:50 infection
--- NOTE | 2022-03-02 21:38 | PC.NURSE ---
Notified Dr Randi Page for pateitn having shortness of air, see new orders for Lasix 40mg OIV x 1 and chemisrty in the AM
[2022-03-02 22:04] LABS: POC Glucose,Bedside 203 (70-110)
[2022-03-03] VITALS (8 sets, daily range): BP systolic 81–106; BP diastolic 51–70; PULSE 64–92; RESP 17–22; TEMP 36.4–36.9; O2SAT 90–99; BMI 26.5
--- NOTE | 2022-03-03 03:06 | PC.NURSE ---
Pt laying in bed resting at this time, spouse at bedside. Pt has been A/O x 4 this shift. Had a Heart Cath Yesterday with 3 stents. Pt has complained of shortness of air with any movement. Dr Randi Lugo is aware. Anxiety noted at times when having shortness of air. Pt did not want anything for anxiety ordered. Did have one time dose of Lasix 40mg IV. Lungs were clear, resp even. Cath site to Right groin dressing clean dry and intact. Pt educated on plan of care, encouraged to report any needs to staff. Bed locked in low position, side rails up x 2, call light in reach.
--- NOTE | 2022-03-03 08:24 | CA_ITS ---
APPROVED REPORT EXAM: Comprehensive 2D, Doppler, and color-flow Echocardiogram Glass Cutting Machine Operator: Jailene Bell RT(R) Ht: 5 ft 9 in Wt: 180lbs BSA: 1.98 BP: 168/85 mmHg Indications: SOA, , edema, CORDOVA, CAD, dizziness, CABG, recent heart cath 2D Dimensions LVOT 2.19 cm (M/F) 1.5-2.5 LA Volume 64.30 mL LA Volume Index 32.47 mL/m2 (M/F) 16-34 M-Mode Dimensions RVDd 2.63 cm (0.9-2.6) LA Diam 4.62 cm (1.9-4.0) LVDd 5.87 cm (3.5-5.7) Ao Diam 2.20 cm (2.0-3.7) LVDs 5.34 cm (3.5-5.7) IVSd 1.34 cm (0.6-1.1) PWd 0.62 cm (0.6-1.1) EF (Teich) 19.60% FS 9.00% EDV (Teich) 171.20 mL ESV (Teich) 137.70 mL LV Diastology E Decel Time 150.00 (160-240 msec) E/A Ratio 1.9 LAT E' 2.30 (<10 cm/sec) E/LAT E' Ratio 31.74 (>14) Aortic Valve LVOT Max 38.00 (70-110 cm/s) LVOT VTI 7.53 cm AoV Peak Merritt. 252.00 (50-130 cm/s) AO Peak GR. 25.50 mmHg AO Mean GR. 12.50 (<5 mmHg) AO VTI 50.03 (18-25 cm) KAYW (VTI) 0.57 (2.5-4.5 cm2) Mitral Valve MV E Max Merritt. 73.00 (40-130 cm/s) MV A Velocity 38.00 (40-130 cm/s) E/A Ratio 1.90 MV Decel. Time 150.00 (160-240 ms) MV PHT 44.00 ms Tricuspid Valve TR P. Velocity 228.00 cm/s RAP Estimate 10.00 mmHg RVSP 30.80 mmHg Left Ventricle Left atrium is mildly enlarged, left ventricle is mildly dilated, severely reduced left ventricular systolic function, estimated ejection fraction 20%, there is marked hypokinesis involving mid to distal septum, anterior, anterior apical and apical wall. Doppler evidence of low cardiac output state seen. Diastolic parameters are inconclusive. Right Ventricle Right atrium and right ventricle are mildly enlarged contractility of the right ventricle is mildly reduced. Aortic Valve Aortic valve is thickened and calcified with severe reduction in leaflet mobility, the aortic valve area is calculated 0.56 cm??? with a mean gradient across aortic valve is 13 mmHg, however there is no cardiac output state, this likely represents severe aortic stenosis with low flow low gradient state. Mitral Valve Mitral valve has dense mitral calcification, leaflets are minimally thickened, there is no mitral stenosis, there is mild mitral regurgitation. Tricuspid Valve Tricuspid grossly normal, there is mild tricuspid regurgitation, tricuspid regurgitation jet velocity is inadequate for calculation of the right ventricular systolic pressure. Pulmonic Valve Pulmonic valve is poorly visualized. Great Vessels Aortic root is normal size. Inferior vena cava is poorly visualized. Pericardium No significant pericardial effusion noted. Conclusion 1. Dilated left ventricle, estimated ejection fraction 20% with multiple segmental wall motion abnormality described above, Doppler evidence of low cardiac output state. 2. Likely low-flow low gradient severe aortic stenosis as described above. 3. Mild mitral and tricuspid regurgitation. 4. No significant pericardial effusion noted. 5. Inferior vena cava is poorly visualized. Electronically signed by : Nishnat Cooney MD 03/04/2022 15:29:06
--- NOTE | 2022-03-03 08:25 | XR_ITS ---
FINAL REPORT CLINICAL HISTORY: SOA FINDINGS: A single view of the chest was obtained. The patient is status post CABG. A left-sided pacemaker is present. The heart is normal in size. The mediastinum is unremarkable. The lungs are clear. There is no pleural effusion. There is no pneumothorax. There is no acute osseous abnormality. IMPRESSION: No acute cardiopulmonary process. Reviewed, Interpreted and Dictated by Gokul Bond MD Transcribed by Laine Barba Authenticated and . [facility]
[2022-03-03 08:40] LABS: Basophils # 0.1 K/mm3 (0-0.2); Eosinophils # 0.1 K/mm3 (0.0-0.4); Eosinophils % 1.2 % (0.1-12.0); Hematocrit 45.2 % (42.0-52.0); Hemoglobin 14.2 g/dL (14.1-18.0); Lymphocytes # 1.1 K/mm3 (0.7-4.5); Lymphocytes % 14.3 % (10-50); Mean Corpuscular HGB Conc 31.4 g/dL (31.8-35.4); Mean Corpuscular Hemoglobin 29.8 pg (27.0-31.2); Mean Corpuscular Volume 94.9 fl (80-94); Mean Platelet Volume 12.4 fl (7.4-10.4); Monocytes # 0.6 K/mm3 (0.1-1.0); Monocytes % 8.2 % (1.7-9.3); Neutrophils # 5.5 K/mm3 (1.8-7.8); Neutrophils % 75.4 % (37.0-80.0); Platelet Count 134 K/mm3 (142-424); Red Blood Count 4.76 M/mm3 (4.60-6.20); Red Cell Distribution Width 16.1 % (11.5-17.5); White Blood Count 7.3 K/mm3 (4.8-10.8)
[2022-03-03 08:44] LABS: Chloride 96 mmol/L (98-107); Potassium 3.7 mmoL/L (3.5-5.1); Sodium 136 mmol/L (136-145)
[2022-03-03 08:47] LABS: Alanine Aminotransferase 269 U/L (12-78); Albumin Level 4.1 g/dl (3.5-5.0); Albumin/Globulin Ratio 1.4 (1.1-1.8); Alkaline Phosphatase 80 U/L (38-126); Anion Gap 17.7 mEq/L (5-15); Aspartate Amino Transferase 207 U/L (17-59); Bilirubin,Total 1.4 mg/dl (0.2-1.3); Blood Urea Nitrogen 59 mg/dl (9-20); Calcium 8.2 mg/dl (8.4-10.2); Carbon Dioxide 26 mmol/L (22.0-30.0); Creatinine Clearance Estimated 35 mL/min (50-200); Estimated Glomerular Filt Rate 32 ml/min (>60); GFR (African American) 39 ML/MIN (>60); Globulin 2.9 g/dL (1.3-3.2); Glucose 97 mg/dl (74-100); Magnesium 2.2 mg/dl (1.6-2.3); Phosphorous 4.7 mg/dl (2.5-4.5)
--- NOTE | 2022-03-03 09:36 | EXP.CARD.CON ---
History of Present Illness History of Present Illness Consult date: 03/03/22 Requesting physician: Randi Lugo Consult reason: shortness of breath Chief complaint: soa Additional Medical History:: Significant past medical history Chronic systolic heart failure status post THERAPEUTIC SUPPORT STAFF D Coronary artery disease status post CABG in 1992 Severe aortic stenosis History of present illness: 76-year-old white male, with significant past medical history as listed above, was admitted status post left heart cath yesterday for further evaluation for ongoing shortness of air. Patient has a history of known moderate aortic stenosis and was recently evaluated by Dr. Cordero at [facility]. Recommendation was to repeat echo in 6 to 12 months to assess for any progression of aortic stenosis. Patient reports that since then has had progressive and worsening shortness of breath and orthopnea, reporting shortness of breath at rest and severe with any activity. Patient was evaluated in cardiology office at [facility] on 02/28/2022 and was set up for left heart cath yesterday a scheduled STIVEN tomorrow. Symptoms of shortness of air has progressed and worsened since admission. Creatinine remained stable at 2 this morning status post left heart cath. Prelim echo from today shows an estimated EF of 10 to 15%, severe aortic valve stenosis noted. [facility] Disclaimer: The information contained in this section may have been updated after the patient was seen, as this information can be updated by other users. Medical History (Updated 03/02/22 @ 14:47 by Anna Lozano RN) Aortic stenosis CAD (coronary artery disease) Dizziness Edema of both lower extremities Hernia, inguinal, left Orthopnea SOB (shortness of breath) Surgical History (Updated 03/02/22 @ 14:47 by Anna Lozano RN) H/O cardiac catheterization Hx of CABG Family History (Updated 03/02/22 @ 14:46 by Anna Lozano RN) Other Family history of diabetes mellitus type II Family history of hyperlipidemia Family history of hypertension Family history of myocardial infarction Social History (Updated 03/02/22 @ 14:49 by Anna Lozano RN) Smoking Status: Former smoker alcohol intake: never substance use type: denies use current occupational status: retired Travel in the last 8 weeks: [place] the [place] household members: spouse housing: house marital status: education level: high school current occupational exposures/hazards: No caffeine: No Review of Systems Review of Systems Review of systems:: pertinent systems reviewed and negative unless documented below *Cardiovascular Cardiovascular: Reports dyspnea *Respiratory Respiratory: Reports dyspnea *Neurologic Neurologic: Reports system reviewed and no additional complaints, except as documented Exam Data for Last 24 hours Vital signs and Labs for Last 24 Hours: Temp Pulse Resp BP Pulse Ox 97.5 F L 64 17 106/58 L 90 L 03/03/22 07:30 03/03/22 07:30 03/03/22 07:30 03/03/22 07:30 03/03/22 07:30 Laboratory Results - last 24 hr 03/02/22 13:16: Activated Clotting Time > 400 H* 03/02/22 14:14: Activated Clotting Time 165 H* D 03/02/22 21:54: POC Glucose 203 H 03/02/22 : SARS-CoV-2 (PCR) Not detected, Influenza A Untype (PCR) Not detected, Influenza Type B (PCR) Not detected 03/03/22 07:55: WBC 7.3, RBC 4.76, Hgb 14.2, Hct 45.2, MCV 94.9 H, MCH 29.8, MCHC 31.4 L, RDW 16.1, Plt Count 134 L, MPV 12.4 H, Neut % (Auto) 75.4, Lymph % (Auto) 14.3, [place] % (Auto) 8.2, Eos % (Auto) 1.2, Baso % (Auto) 1.0, Neut # (Auto) 5.5, Lymph # (Auto) 1.1, [place] # (Auto) 0.6, Eos # (Auto) 0.1, Baso # (Auto) 0.1 03/03/22 07:55: Sodium 136, Potassium 3.7, Chloride 96 L, Carbon Dioxide 26, Anion Gap 17.7 H, BUN 59 H, Creatinine 2.00 H, Estimated Creat Clear 35, Estimated GFR 32 L, Est GFR ( Amer) 39 L, Glucose 97 D, Calcium 8.2 L, Phosphorus 4.7 H, Magnesium 2.2, Total Bilirubin 1.4 H, AST 20
--- NOTE | 2022-03-03 10:39 | PC.NURSE ---
EMS CALLED FOR TRANSPORT.
--- NOTE | 2022-03-03 10:58 | EXP.DC.SUM ---
General Admission date:: 03/02/22 HPI HPI HPI: 76-year-old man admitted for observation following complex coronary intervention in the Spool Tender involving ELIAS bypass artery. Patient received heavy contrast and was able to be perclosed, so interventional service requested admission for observation overnight. Patient has no concerns or complaints at this time Hospital Course Hospital Course Hospital Course: Patient admitted for PCI ELIAS to LAD bypass graft. Admitted following cardiac catheterization for observation. On morning of follow-up patient was in mild respiratory distress with orthopnea and increased oxygen requirement. Lower extremity edema and bilateral crackles on exam, given 80 IV Lasix. Stat transthoracic echo obtained with ejection fraction 15%, LVIDD 6 and aortic valve area 0.5. Cardiology consulted, recommend transfer to [facility] for stat aortic valve valvuloplasty due to symptomatic aortic stenosis with decompensated heart failure. Exam Data for Last 24 hours Vital signs and Labs for Last 24 Hours: Temp Pulse Resp BP Pulse Ox 97.5 F L 64 17 106/58 L 90 L 03/03/22 07:30 03/03/22 07:30 03/03/22 07:30 03/03/22 07:30 03/03/22 07:30 Laboratory Results - last 24 hr 03/02/22 13:16: Activated Clotting Time > 400 H* 03/02/22 14:14: Activated Clotting Time 165 H* D 03/02/22 21:54: POC Glucose 203 H 03/02/22 : SARS-CoV-2 (PCR) Not detected, Influenza A Untype (PCR) Not detected, Influenza Type B (PCR) Not detected 03/03/22 07:55: WBC 7.3, RBC 4.76, Hgb 14.2, Hct 45.2, MCV 94.9 H, MCH 29.8, MCHC 31.4 L, RDW 16.1, Plt Count 134 L, MPV 12.4 H, Neut % (Auto) 75.4, Lymph % (Auto) 14.3, [place] % (Auto) 8.2, Eos % (Auto) 1.2, Baso % (Auto) 1.0, Neut # (Auto) 5.5, Lymph # (Auto) 1.1, [place] # (Auto) 0.6, Eos # (Auto) 0.1, Baso # (Auto) 0.1 03/03/22 07:55: Sodium 136, Potassium 3.7, Chloride 96 L, Carbon Dioxide 26, Anion Gap 17.7 H, BUN 59 H, Creatinine 2.00 H, Estimated Creat Clear 35, Estimated GFR 32 L, Est GFR ( Amer) 39 L, Glucose 97 D, Calcium 8.2 L, Phosphorus 4.7 H, Magnesium 2.2, Total Bilirubin 1.4 H, AST 207 H, ALT 269 H, Alkaline Phosphatase 80, Total Protein 7.0, Albumin 4.1, Globulin 2.9, Albumin/Globulin Ratio 1.4 I & O for Last 24 hours: Intake & Output 02/28/22 03/01/22 03/02/22 03/03/22 23:59 23:59 23:59 23:59 Intake Total 240 / 240 Output Total 100 / 300 800 / 800 Balance -100 / -300 -560 / -560 Weight 80.456 kg 81.335 kg Constitutional Constitutional: moderate distress and cooperative *Routine HEENT Exam Head: Present normocephalic and atraumatic Eye: Present EOMI ENT: Present mucous membranes moist *Routine Neck Exam Neck: Present supple and JVD *Routine Respiratory Exam Respiratory: Present accessory muscle use, respiratory distress, wheezes and crackles *Routine Cardiovascular Exam Cardiovascular: Present RRR and S3 Comments: Systolic crescendo decrescendo *Routine Abdominal Exam Abdominal: Present soft and normoactive bowel sounds *Routine Extremities Exam Extremities: Present edema; Absent cyanosis *Routine Skin Exam Skin: Present intact and dry *Routine Neurological Exam Neurological: Present alert and oriented X3 Results Data Completed and Pending Labs on day of discharge: Labs from last 24 hours 03/03/22 03/03/22 03/02/22 07:55 07:55 Unknown WBC 7.3 RBC 4.76 Hgb 14.2 Hct 45.2 MCV 94.9 H MCH 29.8 MCHC 31.4 L RDW 16.1 Plt Count 134 L MPV 12.4 H Neut % (Auto) 75.4 Lymph % (Auto) 14.3 [place] % (Auto) 8.2 Eos % (Auto) 1.2 Baso % (Auto) 1.0 Neut # (Auto) 5.5 Lymph # (Auto) 1.1 [place] # (Auto) 0.6 Eos # (Auto) 0.1 Baso # (Auto) 0.1 Activated Clotting Time Sodium 136 Potassium 3.7 Chloride 96 L Carbon Dioxide 26 Anion Gap 17.7 H BUN 59 H Creatinine 2.00 H Estimated Creat Clear 35 Estimated GFR 32 L Est GFR ( Amer) 39 L Glucose 9
--- NOTE | 2022-03-03 11:34 | PC.NURSE ---
Addendum entered by Fabiana Black RN 03/03/22 11:40: patient family meeting patient at . patient transfer considered emergent per md Original Note: patient started on dobutamine drip at 1030 report called at 1111 and ambulance at bedside to transfer patient directly to cathlab. patient noted to be short of breath. 2l for comfort.
== END 2022-03-03 11:30 | disposition short-term general hospital (02) | DRG 246 ==
LOC: 2ND 12:55
PROVIDERS: Internal Medicine; Admitting Provider Student in an Organized Health Care Education/Training Program; PCP Family Medicine; Visit Provider Student in an Organized Health Care Education/Training Program
PROC: 027034Z Dilation of Coronary Artery, One Artery with Drug-eluting Intraluminal Device, Percutaneous Approach (ICD-10-PCS; principal; 2022-03-02 10:00)
DX: I11.0 Hypertensive heart disease with heart failure (principal); I50.21 Acute systolic (congestive) heart failure; I25.119 Atherosclerotic heart disease of native coronary artery with unspecified angina pectoris; I35.0 Nonrheumatic aortic (valve) stenosis; Z95.1 Presence of aortocoronary bypass graft; Z87.891 Personal history of nicotine dependence; E78.2 Mixed hyperlipidemia
CPT/HCPCS: C9600; 36415; 71045; 80048; 80053; 82962; 83735; 84100; 85025; 85347; 92928; 93306; 93454; 99152; 99153; C1725; C1769; C1874; C1876; C1894; C9803; J1250; J1644; J2720; Q9967; U0003; U0005

== ENCOUNTER → 2022-03-17 14:47 | Outpatient (CLI) | payer MEDICARE, SELFPAY ==
[2022-03-17 15:36] LABS: Basophils # 0.1 K/mm3 (0-0.2); Eosinophils # 0.1 K/mm3 (0.0-0.4); Eosinophils % 1.4 % (0.1-12.0); Hematocrit 44.8 % (42.0-52.0); Hemoglobin 14.1 g/dL (14.1-18.0); Lymphocytes # 1.1 K/mm3 (0.7-4.5); Lymphocytes % 13.9 % (10-50); Mean Corpuscular HGB Conc 31.4 g/dL (31.8-35.4); Mean Corpuscular Hemoglobin 29.5 pg (27.0-31.2); Mean Platelet Volume 10.2 fl (7.4-10.4); Monocytes # 0.6 K/mm3 (0.1-1.0); Monocytes % 8.3 % (1.7-9.3); Neutrophils # 5.8 K/mm3 (1.8-7.8); Neutrophils % 75.4 % (37.0-80.0); Platelet Count 189 K/mm3 (142-424); Red Blood Count 4.76 M/mm3 (4.60-6.20); Red Cell Distribution Width 16.1 % (11.5-17.5); White Blood Count 7.8 K/mm3 (4.8-10.8)
[2022-03-17 15:59] LABS: Alanine Aminotransferase 416 U/L (12-78); Albumin Level 4.1 g/dl (3.5-5.0); Alkaline Phosphatase 289 U/L (38-126); Anion Gap 18.3 mEq/L (5-15); Aspartate Amino Transferase 602 U/L (17-59); Bilirubin,Direct 1.4 mg/dl (0.0-0.4); Bilirubin,Indirect 0.7 mg/dL (0.0-0.9); Bilirubin,Total 2.1 mg/dl (0.2-1.3); Bilirubin,Unconjugated 0.7 mg/dL (0.0-1.1); Blood Urea Nitrogen 58 mg/dl (9-20); Calcium 8.7 mg/dl (8.4-10.2); Carbon Dioxide 23 mmol/L (22.0-30.0); Chloride 99 mmol/L (98-107); Estimated Glomerular Filt Rate 45 ml/min (>60); GFR (African American) 55 ML/MIN (>60); Glucose 121 mg/dl (74-100); Magnesium 2.3 mg/dl (1.6-2.3); Potassium 4.3 mmoL/L (3.5-5.1); Sodium 136 mmol/L (136-145); Total Protein,Serum 7.2 g/dl (6.3-8.2)
[2022-03-17 16:08] LABS: NT Pro Brain Natriuretic Pep. 16900 pg/mL (0-450)
== END ==
PROVIDERS: PCP Family Medicine; Visit Provider Physician Assistant
DX: E78.2 Mixed hyperlipidemia (principal); I25.5 Ischemic cardiomyopathy; I50.23 Acute on chronic systolic (congestive) heart failure; Z95.1 Presence of aortocoronary bypass graft; Z95.5 Presence of coronary angioplasty implant and graft; I25.10 Atherosclerotic heart disease of native coronary artery without angina pectoris; I35.0 Nonrheumatic aortic (valve) stenosis; R06.01 Orthopnea; R06.02 Shortness of breath; R60.0 Localized edema; Z95.810 Presence of automatic (implantable) cardiac defibrillator; I11.0 Hypertensive heart disease with heart failure; I71.40 Abdominal aortic aneurysm, without rupture, unspecified
CPT/HCPCS: 36415; 80048; 80076; 83735; 83880; 85025

== ENCOUNTER 2022-03-22 11:27 | Inpatient (IN) | payer MEDICARE, SELFPAY ==
[2022-03-22] VITALS (8 sets, daily range): BP systolic 88–116; BP diastolic 55–69; PULSE 64–81; RESP 17–22; TEMP 36.6–36.7; O2SAT 94–100; BMI 25.0
--- NOTE | 2022-03-22 11:35 | CA_ITS ---
APPROVED REPORT EXAM: Comprehensive 2D, Doppler, and color-flow Echocardiogram Pavilion Cutter: Jailene Bell RT(R) Ht: 5 ft 8 in Wt: 165lbs BSA: 1.88 BP: 107/75 mmHg Indications: Recent AV valvuloplasty, CAD, dizziness, hx CABG, SOB, edema, ex smoker, EF check for TAVR. Echo 03/03/22 20% EF 2D Dimensions LVOT 2.17 cm (M/F) 1.5-2.5 M-Mode Dimensions RVDd 3.00 cm (0.9-2.6) LVDd 5.99 cm (3.5-5.7) LVDs 5.35 cm (3.5-5.7) IVSd 0.80 cm (0.6-1.1) PWd 0.48 cm (0.6-1.1) EF (Teich) 22.90% FS 10.70% EDV (Teich) 179.30 mL ESV (Teich) 138.30 mL LV Diastology E Decel Time 160.00 (160-240 msec) E/A Ratio 2.8 Aortic Valve LVOT Max 54.00 (70-110 cm/s) LVOT VTI 9.10 cm AoV Peak Merritt. 211.00 (50-130 cm/s) AO Peak GR. 17.90 mmHg AO Mean GR. 8.80 (<5 mmHg) AO VTI 36.75 (18-25 cm) KYAW (VTI) 0.92 (2.5-4.5 cm2) Mitral Valve MV E Max Merritt. 77.00 (40-130 cm/s) MV A Velocity 28.00 (40-130 cm/s) E/A Ratio 2.77 MV Decel. Time 160.00 (160-240 ms) MV PHT 47.00 ms Left Ventricle Technically difficult and challenging study, endocardial surfaces are poorly visualized. Left atrium is mildly enlarged, left ventricle is dilated, there is severe reduced left ventricular systolic function, estimated ejection fraction approximately 20%, there is marked hypokinesis involving mid to distal septum, anterior, anterior apical, apical and inferior wall. Diastolic parameters are inconclusive. Right Ventricle Right atrium and right ventricle appears to be mildly enlarged, contractility of the left ventricle appears to be reduced, there is a pacemaker lead seen in right atrium and right ventricle. Aortic Valve Aortic valve is thickened and calcified with restriction in the leaflet mobility, the mean gradient across aortic valve is reported to be approximately 10 mmHg, however the valve area is calculated at 0.9 cm???, this likely represents severe aortic stenosis in the low flow state. There is no significant aortic insufficiency seen. Mitral Valve Mitral valve has mitral annular calcification, there is no mitral stenosis, there is mild mitral regurgitation. Tricuspid Valve Tricuspid valve is grossly normal, there is mild tricuspid regurgitation, tricuspid regurgitation jet velocity is inadequate for calculation of the right ventricular systolic pressure. Pulmonic Valve Pulmonic valve is poorly visualized. Great Vessels Aortic root is normal size. Inferior vena cava is poorly visualized. Pericardium No significant pericardial effusion noted. Conclusion 1. Dilated left ventricle with severe reduced left ventricular systolic function, estimated ejection fraction 20%, with segmental wall motion abnormality described above. Diastolic parameters are inconclusive. 2. Mildly enlarged right ventricle with reduced contractility. 3. Thickened and calcified aortic valve as described above, valve area calculated at 0.9 cm???, there is likely preserved severe aortic stenosis and low flow state. 4. Mild mitral and tricuspid regurgitation. 5. No significant pericardial effusion noted. 6. Inferior vena cava is poorly visualized. Electronically signed by : Nishant Cooney MD 03/23/2022 06:16:00
--- NOTE | 2022-03-22 11:41 | PC.NURSE ---
Pt arrived to the floor at this time
--- NOTE | 2022-03-22 12:10 | XR_ITS ---
FINAL REPORT CLINICAL HISTORY: chf COMPARISON: 03/03/2022 FINDINGS: There is cardiomegaly. The patient is status post CABG. Left-sided pacer is identified. There is no focal infiltrate or edema. There are no pleural effusions. There is no pneumothorax. There is no osseous abnormality. IMPRESSION: No acute cardiopulmonary process Reviewed, Interpreted and Dictated by Gokul Bond MD Transcribed by Joanie Plascencia Authenticated and [facility]
--- NOTE | 2022-03-22 12:26 | ECG_ITS ---
APPROVED REPORT Exam: Resting ECG HR:68 bpm ECG Measurements Heart Rate 68 AXES QRSd 225 QRS 119 QT 557 T -40 QTc 574 Conclusion ELECTRONIC VENTRICULAR PACEMAKER PROLONGED QT INTERVAL UNCONFIRMED REPORT Electronically signed by : Juan C Josue MD 03/22/2022 21:23:43
--- NOTE | 2022-03-22 12:27 | EXP.CARD.CON ---
History of Present Illness History of Present Illness Consult date: 03/22/22 Requesting physician: Mal Mahoney Consult reason: congestive heart failure Chief complaint: hx of systolic heart failure and aortic valve stenosis. 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 Dilated left ventricle, estimated ejection fraction 20% with multiple segmental wall motion abnormality described above, Doppler evidence of low cardiac output state. 2.? Likely low-flow low gradient severe aortic stenosis as described above. 3.? Mild mitral and tricuspid regurgitation. 4.? No significant pericardial effusion noted. 5.? Inferior vena cava is poorly visualized. [facility] 03/03/2021 IMPRESSION Severe disease within the left internal mammary artery supplying an LAD with successful stenting reducing the severe to critical disease to less than 10% with 3 contiguous drug-eluting stents Known severe to critical aortic stenosis Coronary disease as described above PLAN 1. Dual antiplatelet therapy 2. Avoidance of tobacco product 3. LDL less than 55 to be achieved with high intensity statin 4. Observe overnight and monitor creatinine while avoiding IV fluids 5. Evaluation for TAVR History of present illness: 76-year-old white male presented to cardiology office last for routine follow-up after aortic valvuloplasty at in early February of this year. At time of valvuloplasty patient was not a candidate for TAVR due to EF being too low at only 12%. Upon presentation to office patient was complaining of orthopnea, dyspnea, and lower extremity swelling per office note, however, its noted patient had a 12 lb weight loss since previous visit (02/28/22). Outpatient labs were collected and resulted as follow: Creatinine was noted to be 1.5 which has improved from previous admission, total bili was 2.1, direct bili 1.4, AST 602, ALT 416, alk phos 289 and proBNP was 16,900. Patient was contacted yesterday and advised to return to hospital for admission. Patient returned to office today for admission, denies any complaints at this time. States is feeling good with improvement of SOA and LE edema. Denies orthopnea. Reports walked in from car and only had to stop and rest for a short time once. Patient admitted for cardiology evaluation. Patient has follow up with Dr. Cordero this Monday and is scheduled to get repeat echo to see if EF has improved. [facility] Disclaimer: The information contained in this section may have been updated after the patient was seen, as this information can be updated by other users. Medical History Aortic stenosis CAD (coronary artery disease) Dizziness Edema of both lower extremities Hernia, inguinal, left Orthopnea SOB (shortness of breath) Surgical History H/O cardiac catheterization Hx of CABG Stented coronary artery Family History Family history of hypertension Family history of diabetes mellitus type II Family history of myocardial infarction Family history of hyperlipidemia Social History (Updated 03/22/22 @ 14:53 by Archana Abbott RN) Smoking Status: Former smoker alcohol intake: never substance use type: denies use current occupational status: retired Travel in the last 8 weeks: [place] the [place] household members: spouse housing: house marital status: education level: high school current occupational exposures/hazards: No diet: diabetic caffeine: No Review of Systems Review of Systems Review of systems:: pertinent systems reviewed and negative unless documented below *Cardiov
[2022-03-22 12:49] LABS: Basophils # 0.1 K/mm3 (0-0.2); Basophils % 0.9 % (0.1-2.0); Eosinophils # 0.2 K/mm3 (0.0-0.4); Eosinophils % 2.3 % (0.1-12.0); Hematocrit 41.3 % (42.0-52.0); Hemoglobin 12.9 g/dL (14.1-18.0); Lymphocytes # 0.8 K/mm3 (0.7-4.5); Lymphocytes % 12.6 % (10-50); Mean Corpuscular HGB Conc 31.3 g/dL (31.8-35.4); Mean Corpuscular Hemoglobin 29.1 pg (27.0-31.2); Mean Platelet Volume 10.1 fl (7.4-10.4); Monocytes # 0.5 K/mm3 (0.1-1.0); Neutrophils % 77.3 % (37.0-80.0); Platelet Count 168 K/mm3 (142-424); Red Blood Count 4.44 M/mm3 (4.60-6.20); Red Cell Distribution Width 16.2 % (11.5-17.5); White Blood Count 6.5 K/mm3 (4.8-10.8)
[2022-03-22 13:08] LABS: Alanine Aminotransferase 137 U/L (12-78); Albumin Level 3.9 g/dl (3.5-5.0); Albumin/Globulin Ratio 1.2 (1.1-1.8); Alkaline Phosphatase 216 U/L (38-126); Anion Gap 11.9 mEq/L (5-15); Aspartate Amino Transferase 68 U/L (17-59); Bilirubin,Total 1.1 mg/dl (0.2-1.3); Blood Urea Nitrogen 37 mg/dl (9-20); Calcium 8.3 mg/dl (8.4-10.2); Carbon Dioxide 29 mmol/L (22.0-30.0); Chloride 98 mmol/L (98-107); Creatinine Clearance Estimated 43 mL/min (50-200); Estimated Glomerular Filt Rate 45 ml/min (>60); GFR (African American) 55 ML/MIN (>60); Globulin 3.3 g/dL (1.3-3.2); Glucose 173 mg/dl (74-100); Magnesium 2.1 mg/dl (1.6-2.3); Potassium 3.9 mmoL/L (3.5-5.1); Sodium 135 mmol/L (136-145); Total Protein,Serum 7.2 g/dl (6.3-8.2)
--- NOTE | 2022-03-22 13:12 | EXP.HP ---
History of Present Illness *Admission Date: 03/22/22 *Reason for visit:: dyspnea *History of present illness: Mr. Greene is a pleasant 76-year-old male who presented to cardiology office this morning for repeat eval after being seen last for routine follow-up after aortic valvuloplasty at earlier this month. Upon presentation to the office there was concern for continued dyspnea and fatigue. Patient was complaining of more orthopnea, some lower extremity swelling last week that appears to be improved this week. Given progressive symptoms, medicine was consulted for admission to optimize patient's cardiac output and for further work-up including echocardiogram and labs. Per chart review, outpatient labs last week concerning for creatinine 1.5 which is improved from to a previous admission, total bili 2.1, direct bili 1.4, AST 602, ALT 416, alk phos 289 and proBNP was 16,900.? Came in today for repeat evaluation. States he is feeling better than last week with improvement in shortness of air and improvement in his lower extremity edema. Denies chest pain, nausea, vomiting, confusion. Urine output has decreased a little but still urinating regularly. Walked into the hospital from his car without oxygen, had to stop once to catch his breath. Cardiology consulted on admission for further evaluation and assistance with management. Of note, patient underwent aortic valvuloplasty at for severe aortic stenosis. Patient was not a candidate for TAVR at that time do to EF being too low at 12%. Patient has follow up with Dr. Cordero 03/25 and is scheduled to get repeat echo to see if EF has improved. Reports taking his medications as prescribed. at bedside states he appears less symptomatic than he was before his valvuloplasty. [facility] Disclaimer: The information contained in this section may have been updated after the patient was seen, as this information can be updated by other users. Medical History Aortic stenosis CAD (coronary artery disease) Dizziness Edema of both lower extremities Hernia, inguinal, left Orthopnea SOB (shortness of breath) Surgical History H/O cardiac catheterization Hx of CABG Stented coronary artery Family History Family history of hypertension Family history of diabetes mellitus type II Family history of myocardial infarction Family history of hyperlipidemia Social History Smoking Status: Former smoker alcohol intake: never substance use type: denies use current occupational status: retired Travel in the last 8 weeks: [place] the [place] household members: spouse housing: house marital status: education level: high school current occupational exposures/hazards: No caffeine: No Review of Systems Review of Systems Review of systems (narrative): 14 point review of systems performed, pertinent positives and negatives as per [facility] Meds Home Medications and Allergies Home Medications Medication Instructions Recorded Confirmed Type gemfibrozil 600 mg tablet 600 mg PO BID Cholesterol 04/15/18 03/22/22 History glipizide 5 mg tablet, extended 5 mg PO TID diabetes 04/15/18 03/22/22 History release 24 hr pantoprazole 40 mg tablet,delayed 40 mg PO DAILY acid reflux 04/16/18 03/22/22 History release clopidogrel 75 mg tablet 75 mg PO DAILY platelet inhibitor 04/22/19 03/22/22 History levothyroxine 25 mcg tablet 25 mcg PO DAILY hypothyroidism 02/28/22 03/22/22 History aspirin 81 mg tablet 81 mg PO DAILY 03/17/22 03/17/22 History furosemide 40 mg tablet 40 mg PO DAILY Fluid 03/17/22 03/22/22 History metoprolol succinate 25 mg 25 mg PO DAILY blood pressure 03/17/22 03/22/22 History tablet,extended release 24 hr sacubitril 24 mg-valsartan 26 mg 1 tab PO B
[2022-03-22 13:16] LABS: NT Pro Brain Natriuretic Pep. 14100 pg/mL (0-450)
[2022-03-22 13:41] LABS: Coronavirus 19, PCR Not Detected (NotDetected); Influenza A, PCR Not Detected (NotDetected); Influenza B, PCR Not Detected (NotDetected)
--- NOTE | 2022-03-22 15:26 | PC.NURSE ---
late entry: ekg performed at 1226, reads critical test result . notified Dr Mahoney and Elva face to face at 1229, both given EKG to review. no new orders.
--- NOTE | 2022-03-22 16:13 | PC.NURSE ---
Notified Dr Mahoney face to face at 1610 that pt home meds have been reconciled and are ready to be reordered when necessary.
[2022-03-22 19:03] LABS: POC Glucose,Bedside 236 (70-110)
[2022-03-22 20:37] LABS: POC Glucose,Bedside 189 (70-110)
[2022-03-23] VITALS (23 sets, daily range): BP systolic 82–107; BP diastolic 26–78; PULSE 72–91; RESP 18–26; TEMP 36.4–36.9; O2SAT 94–100; BMI 25.2
[2022-03-23 05:47] LABS: POC Glucose,Bedside 104 (70-110)
[2022-03-23 06:08] LABS: Basophils # 0.1 K/mm3 (0-0.2); Basophils % 2.2 % (0.1-2.0); Eosinophils # 0.2 K/mm3 (0.0-0.4); Eosinophils % 3.2 % (0.1-12.0); Hematocrit 40.1 % (42.0-52.0); Hemoglobin 12.3 g/dL (14.1-18.0); Lymphocytes # 1.1 K/mm3 (0.7-4.5); Lymphocytes % 19.9 % (10-50); Mean Corpuscular HGB Conc 30.8 g/dL (31.8-35.4); Mean Corpuscular Hemoglobin 28.1 pg (27.0-31.2); Mean Corpuscular Volume 91.4 fl (80-94); Mean Platelet Volume 9.9 fl (7.4-10.4); Monocytes # 0.5 K/mm3 (0.1-1.0); Neutrophils # 3.7 K/mm3 (1.8-7.8); Neutrophils % 65.8 % (37.0-80.0); Platelet Count 152 K/mm3 (142-424); Red Blood Count 4.39 M/mm3 (4.60-6.20); White Blood Count 5.7 K/mm3 (4.8-10.8)
[2022-03-23 06:15] LABS: Alanine Aminotransferase 103 U/L (12-78); Albumin Level 3.5 g/dl (3.5-5.0); Albumin/Globulin Ratio 1.2 (1.1-1.8); Alkaline Phosphatase 201 U/L (38-126); Anion Gap 10.8 mEq/L (5-15); Aspartate Amino Transferase 46 U/L (17-59); Bilirubin,Total 0.8 mg/dl (0.2-1.3); Blood Urea Nitrogen 34 mg/dl (9-20); Calcium 7.8 mg/dl (8.4-10.2); Carbon Dioxide 27 mmol/L (22.0-30.0); Chloride 102 mmol/L (98-107); Creatinine Clearance Estimated 46 mL/min (50-200); Estimated Glomerular Filt Rate 49 ml/min (>60); GFR (African American) 59 ML/MIN (>60); Glucose 114 mg/dl (74-100); Magnesium 2.1 mg/dl (1.6-2.3); Potassium 3.8 mmoL/L (3.5-5.1); Sodium 136 mmol/L (136-145); Total Protein,Serum 6.5 g/dl (6.3-8.2)
--- NOTE | 2022-03-23 07:28 | HMH.PHAINT1 ---
Pharmacy Intervention Comments: home medication list verified using list from outpatient pharmacy and pt interview with nurse
--- NOTE | 2022-03-23 07:59 | EXP.ACUTE.PN ---
Subjective *Date: 03/23/22 *Time: 11:07 Interval history: Patient doing well this morning. Blood pressure remained stable. Tolerating milrinone drip. Denies any chest pain or shortness of breath. Stable on room air. No nausea, vomiting, confusion, increased swelling in ankles. Tolerating p.o. intake. Medical Exam Vital signs and Labs for Last 24 Hours: Vital Signs Temp Pulse Pulse Resp BP Pulse Ox 03/23/22 06:00 75 25 H 95/63 L 94 L 03/23/22 04:00 72 26 H 100/61 L 99 03/23/22 04:19 80 03/23/22 04:00 97.6 F 03/23/22 02:00 75 18 82/54 L 96 03/23/22 01:00 73 03/23/22 00:00 73 03/22/22 20:00 79 03/23/22 00:00 74 20 89/61 L 97 03/22/22 20:00 98 03/22/22 22:00 81 21 98/62 L 98 03/22/22 20:00 75 18 88/55 L 98 03/22/22 20:00 98.1 F 03/22/22 18:00 78 20 96/64 L 98 03/22/22 16:00 98.1 F 79 17 94/69 L 100 03/22/22 16:00 76 97 03/22/22 16:00 80 03/22/22 16:00 77 18 116/59 L 100 03/22/22 14:30 64 20 94/63 L 100 03/22/22 13:00 70 20 89/66 L 100 03/22/22 11:50 69 96 03/22/22 12:00 97.9 F 76 22 96/69 L 94 L Intake and Output 03/22/22 03/22/22 03/23/22 15:59 23:59 07:59 Intake Total 373 / 373 Output Total 200 / 700 200 / 700 700 / 700 Balance -200 / -327 173 / -327 -700 / -700 Intake: Intake, Oral Amount 360 / 360 Intake, Total IV Amount Milrinone Lactate 20 mg In 0.9 / % Sodium Chloride 80 ml @ 0.125 MCG/KG/MIN 2.807 mls/hr IV . Q25H [facility] Rx#:[id number] Output: Output, Urine Amount 200 / 700 200 / 700 700 / 700 Other: Number of Voids 0 Weight 74.843 kg 75.523 kg Patient Weight 03/23/22 23:59 Weight 75.523 kg Laboratory Results - last 24 hr 03/22/22 11:57: SARS-CoV-2 (PCR) Not detected, Influenza A Untype (PCR) Not detected, Influenza Type B (PCR) Not detected 03/22/22 12:35: WBC 6.5, RBC 4.44 L, Hgb 12.9 L, Hct 41.3 L, MCV 93.0, MCH 29.1, MCHC 31.3 L, RDW 16.2, Plt Count 168, MPV 10.1, Neut % (Auto) 77.3, Lymph % (Auto) 12.6, [place] % (Auto) 7.0, Eos % (Auto) 2.3, Baso % (Auto) 0.9, Neut # (Auto) 5.0, Lymph # (Auto) 0.8, [place] # (Auto) 0.5, Eos # (Auto) 0.2, Baso # (Auto) 0.1 03/22/22 12:35: Sodium 135 L, Potassium 3.9, Chloride 98, Carbon Dioxide 29, Anion Gap 11.9, BUN 37 H, Creatinine 1.50 H, Estimated Creat Clear 43, Estimated GFR 45 L, Est GFR ( Amer) 55 L, Glucose 173 H, Calcium 8.3 L, Magnesium 2.1, Total Bilirubin 1.1, AST 68 H, ALT 137 H, Alkaline Phosphatase 216 H, NT-Pro-B Natriuret Pep 34617 H, Total Protein 7.2, Albumin 3.9, Globulin 3.3 H, Albumin/Globulin Ratio 1.2 03/22/22 17:18: POC Glucose 236 H 03/22/22 20:30: POC Glucose 189 H 03/23/22 05:35: WBC 5.7, RBC 4.39 L, Hgb 12.3 L, Hct 40.1 L, MCV 91.4, MCH 28.1, MCHC 30.8 L, RDW 16.0, Plt Count 152, MPV 9.9, Neut % (Auto) 65.8, Lymph % (Auto) 19.9, [place] % (Auto) 9.0, Eos % (Auto) 3.2, Baso % (Auto) 2.2 H, Neut # (Auto) 3.7, Lymph # (Auto) 1.1, [place] # (Auto) 0.5, Eos # (Auto) 0.2, Baso # (Auto) 0.1 03/23/22 05:35: Sodium 136, Potassium 3.8, Chloride 102, Carbon Dioxide 27, Anion Gap 10.8, BUN 34 H, Creatinine 1.40 H, Estimated Creat Clear 46, Estimated GFR 49 L, Est GFR ( Amer) 59, Glucose 114 H D, Calcium 7.8 L, Magnesium 2.1, Total Bilirubin 0.8, AST 46 D, ALT 103 H, Alkaline Phosphatase 201 H, Total Protein 6.5, Albumin 3.5 D, Globulin 3.0, Albumin/Globulin Ratio 1.2 03/23/22 05:39: POC Glucose 104 I & O for Labs for Last 24 Hours: Intake & Output 03/20/22 03/21/22 03/22/22 03/23/22 23:59 23:59 23:59 23:59 Intake Total 373 / 373 Output Total 400 / 700 700 / 700 Balance -27 / -327 -700 / -700 Weight 74.843 kg 75.523 kg Constitutional: Present no acute distress, average body habitus and chronically ill appearing Head: Present atraumatic and normocephalic ENT: Present normal exam Neck: Present normal inspection Respira
--- NOTE | 2022-03-23 08:50 | EXP.CARD.PN ---
Subjective Subjective Date: 03/23/22 Time: 00:00 Principal diagnosis: HFrEF, aortic stenosis Interval history: Patient resting in bed with family at bedside. No events over the evening. remains on milrinone drip. AM labs reviewed and continue to improve. vitals remain stable. Exam Data for Last 24 hours Vital signs and Labs for Last 24 Hours: Temp Pulse Resp BP Pulse Ox 97.9 F 84 22 96/66 L 99 03/23/22 08:00 03/23/22 08:00 03/23/22 08:00 03/23/22 08:00 03/23/22 08:00 Laboratory Results - last 24 hr 03/22/22 11:57: SARS-CoV-2 (PCR) Not detected, Influenza A Untype (PCR) Not detected, Influenza Type B (PCR) Not detected 03/22/22 12:35: WBC 6.5, RBC 4.44 L, Hgb 12.9 L, Hct 41.3 L, MCV 93.0, MCH 29.1, MCHC 31.3 L, RDW 16.2, Plt Count 168, MPV 10.1, Neut % (Auto) 77.3, Lymph % (Auto) 12.6, [place] % (Auto) 7.0, Eos % (Auto) 2.3, Baso % (Auto) 0.9, Neut # (Auto) 5.0, Lymph # (Auto) 0.8, [place] # (Auto) 0.5, Eos # (Auto) 0.2, Baso # (Auto) 0.1 03/22/22 12:35: Sodium 135 L, Potassium 3.9, Chloride 98, Carbon Dioxide 29, Anion Gap 11.9, BUN 37 H, Creatinine 1.50 H, Estimated Creat Clear 43, Estimated GFR 45 L, Est GFR ( Amer) 55 L, Glucose 173 H, Calcium 8.3 L, Magnesium 2.1, Total Bilirubin 1.1, AST 68 H, ALT 137 H, Alkaline Phosphatase 216 H, NT-Pro-B Natriuret Pep 60185 H, Total Protein 7.2, Albumin 3.9, Globulin 3.3 H, Albumin/Globulin Ratio 1.2 03/22/22 17:18: POC Glucose 236 H 03/22/22 20:30: POC Glucose 189 H 03/23/22 05:35: WBC 5.7, RBC 4.39 L, Hgb 12.3 L, Hct 40.1 L, MCV 91.4, MCH 28.1, MCHC 30.8 L, RDW 16.0, Plt Count 152, MPV 9.9, Neut % (Auto) 65.8, Lymph % (Auto) 19.9, [place] % (Auto) 9.0, Eos % (Auto) 3.2, Baso % (Auto) 2.2 H, Neut # (Auto) 3.7, Lymph # (Auto) 1.1, [place] # (Auto) 0.5, Eos # (Auto) 0.2, Baso # (Auto) 0.1 03/23/22 05:35: Sodium 136, Potassium 3.8, Chloride 102, Carbon Dioxide 27, Anion Gap 10.8, BUN 34 H, Creatinine 1.40 H, Estimated Creat Clear 46, Estimated GFR 49 L, Est GFR ( Amer) 59, Glucose 114 H D, Calcium 7.8 L, Magnesium 2.1, Total Bilirubin 0.8, AST 46 D, ALT 103 H, Alkaline Phosphatase 201 H, Total Protein 6.5, Albumin 3.5 D, Globulin 3.0, Albumin/Globulin Ratio 1.2 03/23/22 05:39: POC Glucose 104 I & O for Last 24 hours: Intake & Output 03/20/22 03/21/22 03/22/22 03/23/22 23:59 23:59 23:59 23:59 Intake Total 373 / 373 240 / 240 Output Total 400 / 700 700 / 700 Balance -27 / -327 -460 / -460 Weight 165 lb 166 lb 8 oz Constitutional Constitutional: no acute distress *Routine HEENT Exam Head: Present normocephalic Eye: Present EOMI and PERRL ENT: Present mucous membranes moist *Routine Neck Exam Neck: Present supple; Absent lymphadenopathy *Routine Respiratory Exam Respiratory: Present CTA bilaterally *Routine Cardiovascular Exam Cardiovascular: Present RRR and murmur *Routine Abdominal Exam Abdominal: Present soft and normoactive bowel sounds; Absent tenderness *Routine Extremities Exam Extremities: Absent cyanosis, clubbing or edema *Routine Skin Exam Skin: Present warm; Absent rash *Routine Neurological Exam Neurological: Present alert and oriented X3 Progress Note: A&P Assessment and plan (1) AICD (automatic cardioverter/defibrillator) present: Status: Chronic (2) Hx of CABG: Status: Chronic (3) HTN (hypertension): Status: Chronic (4) HLD (hyperlipidemia): Status: Chronic (5) CAD (coronary artery disease): Status: Chronic (6) Chronic systolic CHF (congestive heart failure): Status: Chronic (7) Severe aortic stenosis: Status: Acute (8) Chronic kidney disease: Status: Acute Assessment and Plan Assessment and Plan for All Diagnoses:: Severe aortic stenosis -Last echo showed ef of 20, Echo showed EF of 12% -S/p aortic valvuloplasty per Dr. Cordero at Feb 2022. At that time EF was 12% and patient was not a candidate for TAVR, Dr. Cordero wanted EF to be at least 20%. Has follow up with Consuelo on [place]
[2022-03-23 11:19] LABS: POC Glucose,Bedside 179 (70-110)
--- NOTE | 2022-03-23 12:21 | EXP.DC.SUM ---
General Admission date:: 03/22/22 Discharge date: 03/24/22 HPI HPI HPI: Mr. Greene is a pleasant 76-year-old male who presented to cardiology office this morning for repeat eval after being seen last for routine follow-up after aortic valvuloplasty at earlier this month. Upon presentation to the office there was concern for continued dyspnea and fatigue. Patient was complaining of more orthopnea, some lower extremity swelling last week that appears to be improved this week. Given progressive symptoms, medicine was consulted for admission to optimize patient's cardiac output and for further work-up including echocardiogram and labs. Per chart review, outpatient labs last week concerning for creatinine 1.5 which is improved from to a previous admission, total bili 2.1, direct bili 1.4, AST 602, ALT 416, alk phos 289 and proBNP was 16,900.? Came in today for repeat evaluation. States he is feeling better than last week with improvement in shortness of air and improvement in his lower extremity edema. Denies chest pain, nausea, vomiting, confusion. Urine output has decreased a little but still urinating regularly. Walked into the hospital from his car without oxygen, had to stop once to catch his breath. Cardiology consulted on admission for further evaluation and assistance with management. Of note, patient underwent aortic valvuloplasty at for severe aortic stenosis. Patient was not a candidate for TAVR at that time do to EF being too low at 12%. Patient has follow up with Dr. Cordero 03/25 and is scheduled to get repeat echo to see if EF has improved. Reports taking his medications as prescribed. at bedside states he appears less symptomatic than he was before his valvuloplasty. Hospital Course Hospital Course Hospital Course: 76-year-old male with severe aortic stenosis, status post valvuloplasty 03/03/2022 at .? Echo at that time showed EF of 12%.? Patient continues to be symptomatic.? Admitted for cardiac evaluation and optimization.? Problems addressed as follows: Severe aortic stenosis Chronic HFrEF History of CABG Dyspnea with exertion -Cardiology consulted, appreciate their recommendations.? Patient was admitted to initiate milrinone for inotropic benefit. Continued his Entresto, Aldactone, Lasix and Jardiance during admission. Repeat echocardiogram obtained showing EF of 20%. Patient was treated with heparin for DVT prophylaxis and thromboprophylaxis during admission. No DOAC initiated pending evaluation for TAVR on Monday at . Patient has remained hemodynamically stable. Plan to discontinue milrinone and discharge home for close follow-up with interventional cardiology at in the morning (Dr. Cordero). Patient is remained stable on room air. Has had a neutral to slightly negative fluid balance during admission. We will continue to hold beta-elaine pending follow-up with cardiology as an outpatient. -Of note, continue Plavix and aspirin. History of hypertension -Blood pressure remained soft however systolics above 90 during admission. Continue Entresto at this time. Hyperlipidemia Transaminitis -Liver enzymes monitored during admission. LFTs normalized. Resume statin at discharge. CKD -Creatinine at baseline of 1.3-1.5 during admission. Monitor daily. Medically stable for discharge home with close follow-up with interventional cardiology at . Patient has significant heart failure and aortic stenosis necessitating valve replacement if he is to have any improvement in quality of life. No further acute needs that we can address at this time. Stable on room air, hemodynamically stable, tolerating oral medication and oral nutrition. Patient does express fatigue with being in the hospital and wants to be at home. Counseled on importance of pursuing valve replacement if meets criteria to improve both quality and quantity of life. Patient states understanding. Exam Data for Last 24 hours Vital
[2022-03-23 17:04] LABS: POC Glucose,Bedside 166 (70-110)
--- NOTE | 2022-03-23 18:30 | PC.NURSE ---
Milrinone drip currently infusing. VS stable and pt remained on room air. No complaints of pain. A paced on monitor and occasionally av paced.
[2022-03-23 20:31] LABS: POC Glucose,Bedside 177 (70-110)
[2022-03-24] VITALS: BP 86/57; PULSE 70; PULSE 73; RESP 21; O2SAT 99
[2022-03-24 03:52] VITALS: TEMP 36.6
[2022-03-24 04:00] VITALS: BP 82/54; PULSE 70; PULSE 78; RESP 22; O2SAT 100; BMI 25.9
[2022-03-24 06:00] VITALS: BP 103/74; PULSE 84; RESP 18; O2SAT 100
[2022-03-24 06:29] LABS: POC Glucose,Bedside 120 (70-110)
[2022-03-24 06:35] LABS: Basophils # 0.1 K/mm3 (0-0.2); Eosinophils # 0.2 K/mm3 (0.0-0.4); Eosinophils % 3.1 % (0.1-12.0); Hematocrit 39.7 % (42.0-52.0); Hemoglobin 12.3 g/dL (14.1-18.0); Lymphocytes # 1.3 K/mm3 (0.7-4.5); Lymphocytes % 20.8 % (10-50); Mean Corpuscular Hemoglobin 28.6 pg (27.0-31.2); Mean Corpuscular Volume 92.4 fl (80-94); Mean Platelet Volume 10.4 fl (7.4-10.4); Monocytes # 0.5 K/mm3 (0.1-1.0); Monocytes % 7.5 % (1.7-9.3); Neutrophils # 4.3 K/mm3 (1.8-7.8); Neutrophils % 67.6 % (37.0-80.0); Platelet Count 156 K/mm3 (142-424); Red Blood Count 4.29 M/mm3 (4.60-6.20); Red Cell Distribution Width 16.3 % (11.5-17.5); White Blood Count 6.4 K/mm3 (4.8-10.8)
[2022-03-24 06:56] LABS: Alanine Aminotransferase 83 U/L (12-78); Albumin Level 3.4 g/dl (3.5-5.0); Albumin/Globulin Ratio 1.1 (1.1-1.8); Alkaline Phosphatase 173 U/L (38-126); Anion Gap 8.7 mEq/L (5-15); Aspartate Amino Transferase 47 U/L (17-59); Blood Urea Nitrogen 29 mg/dl (9-20); Calcium 7.7 mg/dl (8.4-10.2); Carbon Dioxide 28 mmol/L (22.0-30.0); Chloride 102 mmol/L (98-107); Creatinine Clearance Estimated 51 mL/min (50-200); Estimated Glomerular Filt Rate 53 ml/min (>60); GFR (African American) 65 ML/MIN (>60); Glucose 118 mg/dl (74-100); Magnesium 2.1 mg/dl (1.6-2.3); Potassium 3.7 mmoL/L (3.5-5.1); Sodium 135 mmol/L (136-145); Total Protein,Serum 6.4 g/dl (6.3-8.2)
[2022-03-24 08:00] VITALS: BP 109/75; PULSE 100; PULSE 81; RESP 17; TEMP 37; O2SAT 98; O2SAT 99
--- NOTE | 2022-03-24 08:51 | EXP.CARD.PN ---
Subjective Subjective Date: 03/24/22 Time: 08:00 Principal diagnosis: HFrEF, aortic stenosis Interval history: Patient reports didn't sleep well last night and is ready to go home. Labs continue to improve. Vitals remain stable. Exam Data for Last 24 hours Vital signs and Labs for Last 24 Hours: Temp Pulse Resp BP Pulse Ox 98.6 F 100 H 18 103/74 L 100 03/24/22 08:00 03/24/22 08:00 03/24/22 06:00 03/24/22 06:00 03/24/22 06:00 Laboratory Results - last 24 hr 03/23/22 11:06: POC Glucose 179 H 03/23/22 16:56: POC Glucose 166 H 03/23/22 20:17: POC Glucose 177 H 03/24/22 05:38: WBC 6.4, RBC 4.29 L, Hgb 12.3 L, Hct 39.7 L, MCV 92.4, MCH 28.6, MCHC 31.0 L, RDW 16.3, Plt Count 156, MPV 10.4, Neut % (Auto) 67.6, Lymph % (Auto) 20.8, [place] % (Auto) 7.5, Eos % (Auto) 3.1, Baso % (Auto) 1.0, Neut # (Auto) 4.3, Lymph # (Auto) 1.3, [place] # (Auto) 0.5, Eos # (Auto) 0.2, Baso # (Auto) 0.1 03/24/22 05:38: Sodium 135 L, Potassium 3.7, Chloride 102, Carbon Dioxide 28, Anion Gap 8.7, BUN 29 H, Creatinine 1.30 H, Estimated Creat Clear 51, Estimated GFR 53 L, Est GFR ( Amer) 65, Glucose 118 H, Calcium 7.7 L, Magnesium 2.1, Total Bilirubin 1.0, AST 47, ALT 83 H, Alkaline Phosphatase 173 H, Total Protein 6.4, Albumin 3.4 L, Globulin 3.0, Albumin/Globulin Ratio 1.1 03/24/22 06:04: POC Glucose 120 H I & O for Last 24 hours: Intake & Output 03/21/22 03/22/22 03/23/22 03/24/22 23:59 23:59 23:59 23:59 Intake Total 373 / 373 966 / 966 480 / 480 Output Total 400 / 700 1700 / 1700 200 / 200 Balance -27 / -327 -734 / -734 280 / 280 Weight 165 lb 166 lb 8 oz 171 lb Constitutional Constitutional: no acute distress *Routine Respiratory Exam Respiratory: Present CTA bilaterally and symmetric chest movement *Routine Cardiovascular Exam Cardiovascular: Present RRR, Normal S1 and Normal S2 *Routine Abdominal Exam Abdominal: Present soft and normoactive bowel sounds; Absent tenderness *Routine Extremities Exam Extremities: Present full ROM and normal capillary refill; Absent edema *Routine Skin Exam Skin: Present intact, dry and warm Detailed Neck Exam: Thyroids Thyroid: Absent bruit Progress Note: A&P Assessment and plan (1) Severe aortic stenosis: Status: Acute (2) Congestive heart failure: Status: Chronic (3) Hx of CABG: Status: Chronic (4) Diabetes mellitus: Status: Chronic (5) AICD (automatic cardioverter/defibrillator) present: Status: Chronic (6) HTN (hypertension): Status: Chronic (7) HLD (hyperlipidemia): Status: Chronic (8) SOB (shortness of breath): Status: Chronic Assessment and Plan Assessment and Plan for All Diagnoses:: Severe aortic stenosis -Last echo showed ef of 20, Echo showed EF of 12% -S/p aortic valvuloplasty per Dr. Cordero at Feb 2022. At that time EF was 12% and patient was not a candidate for TAVR, Dr. Cordero wanted EF to be at least 20%. Has follow up with Consuelo on Monday. -Repeat echo 03/22/2022- Echo shows ef of 20 with severe aortic stenosis and low flow state. Chronic HFrEF NYHA II-III at baseline, today II. -Last echo at showed EF of 12% -continue entresto BID,? aldactone, lasix, jardiance? per Dr. Lugo. -labs and chest xray reviewed. chest xray negative of acute process and labs improved from . -last download of A[employer] 12/2021 showed negative heart logic, no events and no afib -Per Dr. Lugo, start patient on milrinone drip in hope of maximizing cardiac output state. 03/23/2022- no change. remains on milrinone 03/24/2022- Stop milrinone. Patient has follow up with Dr. Cordero tomorrow and is scheduled for repeat echo tomorrow to re-assess EF. CAD s/p CABG and stenting -[facility] 02/2021- stent to ELIAS -Continue plavix and aspirin. BB and statin on hold Hx of HTN with recent episodes of hypotension -BP remains on low side but is acceptable. -Continue Entresto. Do not hold per Dr. Lugo. Call Dr. Shaw
[2022-03-24 10:00] VITALS: BP 100/73; PULSE 87; RESP 16; O2SAT 100
--- NOTE | 2022-03-24 10:13 | P.CONPHA_ITS ---
Pharmacy Intervention Comments: DISCHARGE MEDICATION COUNSELING PROVIDED. DISCUSSED HOLDING THE METOPROLOL UNTIL PATIENT FOLLOWS UP WITH HIS BPM ARCHITECT TOMORROW. PATIENT VERBALIZED NO QUESTIONS AT THIS TIME.
--- NOTE | 2022-03-24 10:13 | HMH.PHAINT1 ---
Pharmacy Intervention Comments: DISCHARGE MEDICATION COUNSELING PROVIDED. 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 PATIENT VERBALIZED NO QUESTIONS AT THIS TIME.
--- NOTE | 2022-03-25 11:07 | CARE MANAGER ---
Spoke with patient for post-discharge phone interview, no issues noted.
== END 2022-03-24 10:42 | disposition home or self-care (01) | DRG 307 ==
PROVIDERS: Admitting Provider Internal Medicine Adolescent Medicine; PCP Family Medicine; Visit Provider Internal Medicine Adolescent Medicine
DX: I35.0 Nonrheumatic aortic (valve) stenosis (principal); I50.22 Chronic systolic (congestive) heart failure; I13.0 Hypertensive heart and chronic kidney disease with heart failure and stage 1 through stage 4 chronic kidney disease, or unspecified chronic kidney disease; I25.10 Atherosclerotic heart disease of native coronary artery without angina pectoris; Z95.1 Presence of aortocoronary bypass graft; Z95.5 Presence of coronary angioplasty implant and graft; Z87.891 Personal history of nicotine dependence; Z79.84 Long term (current) use of oral hypoglycemic drugs; Z95.810 Presence of automatic (implantable) cardiac defibrillator; E11.22 Type 2 diabetes mellitus with diabetic chronic kidney disease; N18.9 Chronic kidney disease, unspecified; E78.2 Mixed hyperlipidemia
CPT/HCPCS: 36415; 71045; 80053; 82962; 83735; 83880; 85025; 93005; 93306; 94761; C9803; J2260; U0003; U0005

== ENCOUNTER → 2022-04-04 10:16 | Outpatient (CLI) | payer MEDICARE, SELFPAY ==
--- NOTE | 2022-04-04 10:19 | XR_ITS ---
FINAL REPORT CLINICAL HISTORY: right foot pain FINDINGS: 3 views of the right foot were obtained. There is a small plantar spur. There is no acute fracture or dislocation. The joint spaces are intact. The soft tissues are unremarkable. IMPRESSION: No acute process. Reviewed, Interpreted and Dictated by Silas Estrada MD Transcribed by Jac Ferrari Authenticated and [facility]
== END ==
PROVIDERS: PCP Family Medicine; Visit Provider Physician Assistant
DX: E78.2 Mixed hyperlipidemia (principal); I10 Essential (primary) hypertension; I25.10 Atherosclerotic heart disease of native coronary artery without angina pectoris; I35.0 Nonrheumatic aortic (valve) stenosis; I50.9 Heart failure, unspecified; M79.671 Pain in right foot; R06.02 Shortness of breath; Z95.1 Presence of aortocoronary bypass graft; Z95.5 Presence of coronary angioplasty implant and graft; Z95.810 Presence of automatic (implantable) cardiac defibrillator
CPT/HCPCS: 73630

== ENCOUNTER 2022-04-27 14:53 | Inpatient (IN) | payer MEDICARE, SELFPAY ==
[2022-04-27] VITALS (13 sets, daily range): BP systolic 84–107; BP diastolic 51–73; PULSE 70–76; RESP 13–20; TEMP 36.5–36.6; O2SAT 92–99; BMI 25.5; BMI 26.5
--- NOTE | 2022-04-27 15:03 | ECG_ITS ---
APPROVED REPORT Exam: Resting ECG HR:70 bpm ECG Measurements Heart Rate 70 AXES MN 337 P 157 QRSd 85 QRS 182 QT 390 T -48 QTc 410 Conclusion [employer]LECT[employer] PACEMAKER Abnormal ECG UNCONFIRMED REPORT Electronically signed by : Juan C Josue MD 04/28/2022 17:07:22
--- NOTE | 2022-04-27 15:11 | HMH.EDGENADL ---
Discharge Plan Disposition Patient Disposition: Admitted as Observation Condition: Good Clinical Impressions Clinical Impression: Congestive heart failure Qualifiers: Heart failure type: systolic Heart failure chronicity: acute on chronic Qualified Code(s): I50.23 - Acute on chronic systolic (congestive) heart failure Discharge ED Provider: Jose Bravo General Adult HPI General Chief complaint: Shortness of Breath/Dyspnea Stated complaint: fluid in lungs Time Seen by Provider: 04/27/22 15:10 History of Present Illness HPI narrative: Yolanda Cavazos contacted me prior to the patient's arrival. She stated that Dr. Lugo has been in contact with the patient. He has a biventricular pacemaker/defibrillator that since his fluid status. He was notified several days ago that he was fluid overloaded and was advised to come to the emergency room and get a milrinone drip. He refused at that time. Apparently he contacted Dr. Lugo today and said he was feeling worse and therefore again advised to come to the emergency room, milrinone drip, admission. Yolanda states that Dr. Girard, hospitalist, has been notified. Yolanda states the patient has severe aortic stenosis. He has recently had a valvuloplasty. He needs a TAVR. He is being bridged with milrinone drip as needed. Patient complains of dyspnea on exertion and swelling/weight gain. He has gained 4 pounds in the past couple of days. Denies chest pain. Related Data Home Medications Medication Instructions Recorded Confirmed gemfibrozil 600 mg tablet 600 mg PO BID Cholesterol 04/15/18 04/04/22 glipizide 5 mg tablet, extended 5 mg PO TID diabetes 04/15/18 04/04/22 release 24 hr pantoprazole 40 mg tablet,delayed 40 mg PO DAILY acid reflux 04/16/18 04/04/22 release clopidogrel 75 mg tablet 75 mg PO DAILY platelet inhibitor 04/22/19 04/04/22 levothyroxine 25 mcg tablet 25 mcg PO DAILY hypothyroidism 02/28/22 04/04/22 aspirin 81 mg tablet 81 mg PO DAILY Heartburn 03/17/22 04/04/22 furosemide 40 mg tablet 40 mg PO DAILY Fluid 03/17/22 04/04/22 metoprolol succinate 25 mg 25 mg PO DAILY blood pressure 03/17/22 04/04/22 tablet,extended release 24 hr sacubitril 24 mg-valsartan 26 mg 1 tab PO BID Heart failure 03/17/22 04/04/22 tablet sitagliptin phosphate 50 mg tablet 50 mg PO BID Diabetes 03/17/22 04/04/22 (Mychal) atorvastatin 40 mg tablet 40 mg PO HS Cholesterol 03/22/22 04/04/22 spironolactone 25 mg tablet 25 mg PO DAILY Fluid 03/22/22 04/04/22 carvedilol 25 mg tablet 25 mg PO BID Hypertension 04/04/22 04/04/22 Allergies Allergy/AdvReac Type Severity Reaction Status Date / Time dapagliflozin [From [facility]] AdvReac Mild yeast Verified 04/04/22 09:43 infection [facility] Disclaimer: The information contained in this section may have been updated after the patient was seen, as this information can be updated by other users. Medical History (Updated 04/27/22 @ 15:53 by Yolanda Cavazos APRN) Aortic stenosis CAD (coronary artery disease) Dizziness Edema of both lower extremities Hernia, inguinal, left Orthopnea Right foot pain Shortness of Breath SOB (shortness of breath) Surgical History H/O cardiac catheterization Hx of CABG Stented coronary artery Family History Other Family history of diabetes mellitus type II Family history of hyperlipidemia Family history of hypertension Family history of myocardial infarction Social History Smoking Status: Never smoker alcohol intake: never substance use type: denies use current occupational status: retired Travel in the last 8 weeks: Inside the [place] household members: spouse housing: house marital status: education level: high school current occupational exposures/hazards: No diet: diabetic caffeine
--- NOTE | 2022-04-27 15:15 | XR_ITS ---
FINAL REPORT CLINICAL HISTORY: SOB COMPARISON: 03/22/2022 FINDINGS: PA and lateral views of the chest were obtained. The heart is mildly enlarged, stable. The patient is status post median sternotomy. There is no change in the left AICD. There is bilateral lower lobe atelectasis and small effusions, unchanged. There is no pneumothorax. No acute osseous abnormality is identified. IMPRESSION: Bilateral atelectasis and small effusions, unchanged. Reviewed, Interpreted and Dictated by Skylar Silva MD Transcribed by Joanie Plascencia Authenticated and [facility]
--- NOTE | 2022-04-27 15:19 | PC.NURSE ---
EVA ROBLES at for patient eval
--- NOTE | 2022-04-27 15:21 | PC.NURSE ---
pt resting in bed no complaints at this time family at bedside
[2022-04-27 15:36] LABS: Coronavirus 19, PCR Not Detected (NotDetected); Influenza A, PCR Not Detected (NotDetected); Influenza B, PCR Not Detected (NotDetected)
[2022-04-27 15:41] LABS: Basophils # 0.1 K/mm3 (0-0.2); Eosinophils # 0.4 K/mm3 (0.0-0.4); Eosinophils % 5.5 % (0.1-12.0); Hematocrit 39.3 % (42.0-52.0); Hemoglobin 12.3 g/dL (14.1-18.0); Lymphocytes % 14.4 % (10-50); Mean Corpuscular HGB Conc 31.3 g/dL (31.8-35.4); Mean Corpuscular Hemoglobin 28.3 pg (27.0-31.2); Mean Corpuscular Volume 90.7 fl (80-94); Mean Platelet Volume 10.3 fl (7.4-10.4); Monocytes # 0.4 K/mm3 (0.1-1.0); Monocytes % 5.9 % (1.7-9.3); Neutrophils % 73.2 % (37.0-80.0); Platelet Count 155 K/mm3 (142-424); Red Blood Count 4.33 M/mm3 (4.60-6.20); Red Cell Distribution Width 17.8 % (11.5-17.5); White Blood Count 6.8 K/mm3 (4.8-10.8)
[2022-04-27 15:46] LABS: Chloride 97 mmol/L (98-107); Potassium 3.7 mmoL/L (3.5-5.1); Sodium 138 mmol/L (136-145)
[2022-04-27 15:49] LABS: Anion Gap 11.7 mEq/L (5-15); Blood Urea Nitrogen 28 mg/dl (9-20); Calcium 8.3 mg/dl (8.4-10.2); Carbon Dioxide 33 mmol/L (22.0-30.0); Creatinine Clearance Estimated 50 mL/min (50-200); Estimated Glomerular Filt Rate 53 ml/min (>60); GFR (African American) 65 ML/MIN (>60); Glucose 127 mg/dl (74-100)
--- NOTE | 2022-04-27 15:49 | EXP.CARD.CON ---
History of Present Illness History of Present Illness Consult date: 04/27/22 Requesting physician: Jose Bravo Consult reason: shortness of breath Chief complaint: SOA History of present illness: This is a 76-year-old white gentleman who presented to the emergency department with complaints of shortness of breath and congestive heart failure. The patient was contacted on Monday of this week by Dr. Lugo for worsening of his heart logic on his AICD download. The patient did not want to be admitted to the hospital at that time and his oral diuretics were adjusted. The patient states that his symptoms worsened over the last 2 days with more and more shortness of breath and feeling fluid overloaded so he called the office today and it was recommended for him to go to the emergency department to be admitted for an acute exacerbation of his chronic systolic congestive heart failure to be started on a milrinone drip. The patient denies any lower extremity edema. He denies any fever, chills, nausea, vomiting, diarrhea. He does have orthopnea associated with his shortness of breath. The patient does have severe aortic stenosis and had valvuloplasty recently. The patient needs TAVR for his severe aortic stenosis. He reports that Dr. Cordero is meeting with the his cardiology team this week in conference to see if he is now a candidate for TAVR given his significant systolic congestive heart failure they are awaiting phone call from Dr. Cordero's office. The patient complains of worsening shortness of breath on exertion with weight gain. He states he has gained 4 pounds and his shortness of breath is not improving. He denies chest pain or pressure. [facility] Disclaimer: The information contained in this section may have been updated after the patient was seen, as this information can be updated by other users. Medical History (Updated 04/27/22 @ 15:53 by Yolanda Cavazos APRN) Aortic stenosis CAD (coronary artery disease) Dizziness Edema of both lower extremities Hernia, inguinal, left Orthopnea Right foot pain Shortness of Breath SOB (shortness of breath) Surgical History H/O cardiac catheterization Hx of CABG Stented coronary artery Family History Other Family history of diabetes mellitus type II Family history of hyperlipidemia Family history of hypertension Family history of myocardial infarction Social History Smoking Status: Never smoker alcohol intake: never substance use type: denies use current occupational status: retired Travel in the last 8 weeks: Inside the [place] household members: spouse housing: house marital status: education level: high school current occupational exposures/hazards: No diet: diabetic caffeine: No Review of Systems Review of Systems Review of systems:: pertinent systems reviewed and negative unless documented below Constitutional Constitutional: Reports system reviewed and no additional complaints, except as documented, Reports fatigue, Denies headache(s), Reports lethargy and Denies weakness Eyes Eyes: Reports system reviewed and no additional complaints, except as documented ENT Ears, Nose, Mouth, and Throat: Reports system reviewed and no additional complaints, except as documented and Denies headache(s) *Cardiovascular Cardiovascular: Reports system reviewed and no additional complaints, except as documented, Reports dyspnea and Reports dyspnea on exertion *Respiratory Respiratory: Reports system reviewed and no additional complaints, except as documented, Reports dyspnea and Reports dyspnea on exertion *Gastrointestinal Gastrointestinal: Reports system reviewed and no additional complaints, except as documented *Genitourinary Genitourinary: Reports system reviewed and no additional complaints, except
[2022-04-27 15:50] LABS: Alanine Aminotransferase 20 U/L (12-78); Albumin Level 3.9 g/dl (3.5-5.0); Alkaline Phosphatase 109 U/L (38-126); Aspartate Amino Transferase 29 U/L (17-59); Bilirubin,Direct 0.4 mg/dl (0.0-0.4); Bilirubin,Indirect 0.3 mg/dL (0.0-0.9); Bilirubin,Total 0.7 mg/dl (0.2-1.3); Bilirubin,Unconjugated 0.3 mg/dL (0.0-1.1); Total Protein,Serum 7.2 g/dl (6.3-8.2)
[2022-04-27 16:06] LABS: NT Pro Brain Natriuretic Pep. 11700 pg/mL (0-450)
[2022-04-27 16:11] LABS: Troponin I 0.01 ng/ml (0.00-0.034)
--- NOTE | 2022-04-27 16:24 | PC.NURSE ---
bed assignment requested, room 219SD, all staff notified
[2022-04-27 16:26] LABS: Thyroid Stimulating Hormone 1.79 uIU/mL (0.465-4.68)
--- NOTE | 2022-04-27 16:54 | PC.NURSE ---
Called radiology for preliminary reports; it was faxed down and given to ER MD
--- NOTE | 2022-04-27 17:07 | EXP.HP ---
History of Present Illness *Admission Date: 04/27/22 *Reason for visit:: Chief complaint: Shortness of air *History of present illness: This is a 76-year-old male that presents to [facility] emergency department with concerns of shortness of air. His past medical history is significant for coronary artery disease status post CABG with ischemic cardiomyopathy and reduced ejection fraction 20%, diabetes and AICD placement. In February he underwent aortic valvuloplasty and is due for TAVR pending improved ejection fraction. He describes several weeks of shortness of air not improved with his home medication regiment. He reached out to his garment looper and they made recommendations but he deferred at that time. He reports his shortness of breath has increased and he is now experiencing NYHA IV symptomatology. He denies retrosternal chest pain or unusual palpitations. He has not identified any confusion or hallucinations. He reports a past history of IV Milrinone therapy. [employer] recommended ED evaluation for admission for his acute on chronic heart failure with reduced ejection fraction. In the ED his electrolytes are normal his creatinine is 1.3 magnesium is normal troponins are negative and his BNP is >11,000. His chest x-ray is consistent with pulmonary edema. His most recent echocardiogram in February identified an ejection fraction of 20%. [facility] Medical History (Updated 04/27/22 @ 17:44 by Sky Girard MD) Aortic stenosis CAD (coronary artery disease) Chronic kidney disease Diabetes mellitus HFrEF (heart failure with reduced ejection fraction) HTN (hypertension) Ischemic cardiomyopathy Surgical History (Updated 04/27/22 @ 17:44 by Sky Girard MD) AICD (automatic cardioverter/defibrillator) present H/O cardiac catheterization History of aortic valvuloplasty Hx of CABG S/P left inguinal herniorrhaphy Stented coronary artery Family History Other Family history of diabetes mellitus type II Family history of hyperlipidemia Family history of hypertension Family history of myocardial infarction Social History Smoking Status: Never smoker alcohol intake: never substance use type: denies use current occupational status: retired Travel in the last 8 weeks: [place] the [place] household members: spouse housing: house marital status: education level: high school current occupational exposures/hazards: No diet: diabetic caffeine: No Review of Systems Review of Systems Review of systems:: pertinent systems reviewed and negative unless documented below Constitutional Constitutional: Denies headache(s) and Denies weakness ENT Ears, Nose, Mouth, and Throat: Denies headache(s) *Cardiovascular Cardiovascular: Denies chest pain, Denies chest pain at rest, Reports dyspnea, Reports dyspnea on exertion and Denies irregular heart rhythm *Respiratory Respiratory: Reports dyspnea and Reports dyspnea on exertion *Musculoskeletal Musculoskeletal: Denies numbness *Neurologic Neurologic: Denies headache(s), Denies numbness and Denies weakness Meds Home Medications and Allergies Home Medications Medication Instructions Recorded Confirmed Type gemfibrozil 600 mg tablet 600 mg PO BID Cholesterol 04/15/18 04/04/22 History glipizide 5 mg tablet, extended 5 mg PO TID diabetes 04/15/18 04/04/22 History release 24 hr pantoprazole 40 mg tablet,delayed 40 mg PO DAILY acid reflux 04/16/18 04/04/22 History release clopidogrel 75 mg tablet 75 mg PO DAILY platelet inhibitor 04/22/19 04/04/22 History levothyroxine 25 mcg tablet 25 mcg PO DAILY hypothyroidism 02/28/22 04/04/22 History aspirin 81 mg tablet 81 mg PO DAILY Heartburn 03/17/22 04/04/22 History furosemide 40 mg tablet 40 mg PO DAILY Fluid 03/17/22 04/04/22 History metoprolol succinate 25 mg 25 mg PO DAILY blood press
--- NOTE | 2022-04-27 17:17 | PC.NURSE ---
report given to Reyna GAYTAN
--- NOTE | 2022-04-27 17:22 | PC.NURSE ---
rounded on pt no complaints at this time, family at bedside
--- NOTE | 2022-04-27 17:32 | PC.NURSE ---
arrived to room by w/c from ED
--- NOTE | 2022-04-27 18:31 | PC.NURSE ---
PT A&OX4. TOLERATING RA WELL. PT HAS +2 PITTING EDEMA TO RLE. NO C/O PAIN OR TROUBLE BREATHING. HAS GOOD APPETITE. NO NEEDS NOTED AT THIS TIME. AT BEDSIDE TO HELP WITH ADMISSION. VSS.
[2022-04-27 19:06] LABS: Troponin I 0.01 ng/ml (0.00-0.034)
[2022-04-27 20:20] LABS: POC Glucose,Bedside 186 (70-110)
--- NOTE | 2022-04-27 20:25 | PC.NURSE ---
bp on right arm 77/44 (58), rechecked and was 74/50 (58), moved bp cuff to left arm and bp 84/54 (64)
[2022-04-27 23:04] LABS: Troponin I 0.01 ng/ml (0.00-0.034)
[2022-04-28] VITALS (24 sets, daily range): BP systolic 78–110; BP diastolic 50–69; PULSE 69–94; RESP 11–21; TEMP 36.4–36.7; O2SAT 90–97; BMI 27.2
--- NOTE | 2022-04-28 00:10 | PC.NURSE ---
pt feeling smothered, pt requested oxygen be placed, 2LNC placed on pt as pt stated this is what he uses at home
[2022-04-28 06:10] LABS: Basophils # 0.1 K/mm3 (0-0.2); Basophils % 1.2 % (0.1-2.0); Eosinophils # 0.4 K/mm3 (0.0-0.4); Eosinophils % 7.5 % (0.1-12.0); Hematocrit 34.9 % (42.0-52.0); Hemoglobin 11.2 g/dL (14.1-18.0); Lymphocytes # 1.1 K/mm3 (0.7-4.5); Lymphocytes % 18.2 % (10-50); Mean Corpuscular HGB Conc 32.1 g/dL (31.8-35.4); Mean Corpuscular Hemoglobin 28.8 pg (27.0-31.2); Mean Corpuscular Volume 89.8 fl (80-94); Mean Platelet Volume 10.7 fl (7.4-10.4); Monocytes # 0.5 K/mm3 (0.1-1.0); Neutrophils # 3.7 K/mm3 (1.8-7.8); Platelet Count 128 K/mm3 (142-424); Red Blood Count 3.89 M/mm3 (4.60-6.20); Red Cell Distribution Width 18.1 % (11.5-17.5); White Blood Count 5.7 K/mm3 (4.8-10.8)
[2022-04-28 06:13] LABS: Alanine Aminotransferase 17 U/L (12-78); Albumin Level 3.5 g/dl (3.5-5.0); Alkaline Phosphatase 99 U/L (38-126); Anion Gap 9.5 mEq/L (5-15); Aspartate Amino Transferase 23 U/L (17-59); Bilirubin,Direct 0.4 mg/dl (0.0-0.4); Bilirubin,Indirect 0.4 mg/dL (0.0-0.9); Bilirubin,Total 0.8 mg/dl (0.2-1.3); Bilirubin,Unconjugated 0.4 mg/dL (0.0-1.1); Blood Urea Nitrogen 29 mg/dl (9-20); Carbon Dioxide 32 mmol/L (22.0-30.0); Chloride 97 mmol/L (98-107); Chol/HDL Ratio 4.3 (1-3.5); Cholesterol 78 mg/dl (140-200); Creatinine Clearance Estimated 54 mL/min (50-200); Estimated Glomerular Filt Rate 53 ml/min (>60); GFR (African American) 65 ML/MIN (>60); Glucose 86 mg/dl (74-100); HDL Cholesterol 18 mg/dl (40-60); Potassium 3.5 mmoL/L (3.5-5.1); Sodium 135 mmol/L (136-145); Total Protein,Serum 6.4 g/dl (6.3-8.2); Triglycerides 71 mg/dl (30-150); VLDL Cholesterol 14 mg/dL (0-40)
[2022-04-28 06:22] LABS: NT Pro Brain Natriuretic Pep. 12300 pg/mL (0-450)
[2022-04-28 06:24] LABS: Direct LDL Cholesterol 50.74 mg/dL (100-129)
[2022-04-28 06:40] LABS: POC Glucose,Bedside 88 (70-110)
--- NOTE | 2022-04-28 07:48 | HMH.PHAINT1 ---
Pharmacy Intervention Comments: Medication reconciliation completed using external fill history and patient interview
[2022-04-28 08:25] LABS: Hemoglobin A1C 6.5 % (4.0-6.0)
--- NOTE | 2022-04-28 10:02 | EXP.CARD.PN ---
Subjective Subjective Date: 04/28/22 Time: 09:30 Principal diagnosis: systolic chf Interval history: This is a 76-year-old gentleman who is admitted to the hospital for an acute exacerbation of his chronic systolic congestive heart failure. The patient is status post AICD placement. The patient does have severe aortic stenosis and underwent valvuloplasty in February of this year. He is currently pending TAVR at [facility] if the conference team decides that he is a candidate for this surgery. The patient has been short of breath for last several weeks. His AICD did show a fluid volume increase. The patient was contacted earlier this week and he did not want to be admitted to the hospital at that time so his medications were adjusted of the phone. He continued to have worsening symptoms despite increasing his diuretics. The patient has been admitted to the hospital and is currently on a milrinone drip. He states that he is still short of breath with exertion but is mostly been in the bed since being admitted. He denies any chest pain or pressure. He is having weakness and fatigue and lack of energy. He denies any fever, chills, nausea, vomiting, diarrhea. Shortness of breath is associated with orthopnea. He denies any lower extremity edema. On admission his BNP is elevated and his chest x-ray is consistent with pulmonary edema. His troponins are negative. Exam Data for Last 24 hours Vital signs and Labs for Last 24 Hours: Temp Pulse Resp BP Pulse Ox 97.8 F 74 16 78/57 L 90 L 04/28/22 07:45 04/28/22 09:59 04/28/22 09:59 04/28/22 09:59 04/28/22 09:59 Laboratory Results - last 24 hr 04/27/22 15:33: SARS-CoV-2 (PCR) Not detected, Influenza A Untype (PCR) Not detected, Influenza Type B (PCR) Not detected 04/27/22 15:33: Sodium 138, Potassium 3.7, Chloride 97 L, Carbon Dioxide 33 H, Anion Gap 11.7, BUN 28 H, Creatinine 1.30 H, Estimated Creat Clear 50, Estimated GFR 53 L, Est GFR ( Amer) 65, Glucose 127 H, Calcium 8.3 L, Troponin I 0.01 04/27/22 15:33: WBC 6.8, RBC 4.33 L, Hgb 12.3 L, Hct 39.3 L, MCV 90.7, MCH 28.3, MCHC 31.3 L, RDW 17.8 H, Plt Count 155, MPV 10.3, Neut % (Auto) 73.2, Lymph % (Auto) 14.4, [place] % (Auto) 5.9, Eos % (Auto) 5.5, Baso % (Auto) 1.0, Neut # (Auto) 5.0, Lymph # (Auto) 1.0, [place] # (Auto) 0.4, Eos # (Auto) 0.4, Baso # (Auto) 0.1 04/27/22 15:33: NT-Pro-B Natriuret Pep 04415 H 04/27/22 15:33: Magnesium 2.0 04/27/22 15:33: Total Bilirubin 0.7, Direct Bilirubin 0.4, Conjugated Bilirubin 0.0, Indirect Bilirubin 0.3, Unconjugated Bilirubin 0.3, AST 29, ALT 20, Alkaline Phosphatase 109, Total Protein 7.2, Albumin 3.9, TSH 1.79 04/27/22 18:14: Troponin I 0.01 04/27/22 20:13: POC Glucose 186 H 04/27/22 22:09: Troponin I 0.01 04/28/22 05:45: WBC 5.7, RBC 3.89 L, Hgb 11.2 L, Hct 34.9 L, MCV 89.8, MCH 28.8, MCHC 32.1, RDW 18.1 H, Plt Count 128 L, MPV 10.7 H, Neut % (Auto) 65.0, Lymph % (Auto) 18.2, [place] % (Auto) 8.0, Eos % (Auto) 7.5, Baso % (Auto) 1.2, Neut # (Auto) 3.7, Lymph # (Auto) 1.1, [place] # (Auto) 0.5, Eos # (Auto) 0.4, Baso # (Auto) 0.1 04/28/22 05:45: Sodium 135 L, Potassium 3.5, Chloride 97 L, Carbon Dioxide 32 H, Anion Gap 9.5, BUN 29 H, Creatinine 1.30 H, Estimated Creat Clear 54, Estimated GFR 53 L, Est GFR ( Amer) 65, Glucose 86 D, Calcium 8.0 L, Total Bilirubin 0.8, Direct Bilirubin 0.4, Conjugated Bilirubin 0.0, Indirect Bilirubin 0.4, Unconjugated Bilirubin 0.4, AST 23, ALT 17, Alkaline Phosphatase 99, Total Protein 6.4, Albumin 3.5 D, Triglycerides 71, Cholesterol 78 L, LDL Cholesterol Direct 50.74 L, VLDL Cholesterol 14, HDL Cholesterol 18 L, Cholesterol/HDL Ratio 4.3 H 04/28/22 05:45: Hemoglobin A1c 6.5 H 04/28/22 05:45: Magnesium 2.0, NT-Pro-B Natriuret Pep 52933 H 04/28/22 06:34: POC Glucose 88 I & O for Last 24 hours: Intake & Output 04/25/22 04/26/22 04/27/22 04/28/22 23:59 23:59 23:59 23:59 Intake Total 240 / 240 420 / 420 Output Total 550 / 550 1100 / 1100 Balance -3
[2022-04-28 11:11] LABS: POC Glucose,Bedside 141 (70-110)
--- NOTE | 2022-04-28 18:09 | EXP.PN ---
Subjective *Date: 04/28/22 *Time: 18:09 Interval history: Date of service April 28, 2022 The patient reports no acute events overnight. He reports improved chest pain. His is at bedside in a chair. Nursing staff report that he remains afebrile with stable heart rates and improving blood pressures. Nursing staff report maps greater than 60. He is currently saturating appropriately on 2 L of oxygen via nasal cannula. He is tolerating his IV milrinone and cardiology continues to follow. The patient reports effective diuresing. We have reviewed and discussed his morning labs and I have personally interpreted his labs as follows: A CBC with a white blood cell count 5.7, hemoglobin 11.2 and platelet count 128. His electrolytes identify sodium 135 potassium 3.5, chloride 97, bicarb 32, BUN 29 and creatinine 1.3. His glucose trend is under 150. His hemoglobin A1c is 6.5%. His LFTs are normal and his proBNP is 12,300. I have personally discussed the case with cardiology PA and they are attempting to identify a facility for transition of care for TAVR. Exam Data for Last 24 hours Vital signs and Labs for Last 24 Hours: Temp Pulse Resp BP Pulse Ox 97.8 F 94 H 17 91/61 L 97 04/28/22 15:16 04/28/22 17:01 04/28/22 17:01 04/28/22 17:01 04/28/22 17:01 Laboratory Results - last 24 hr 04/27/22 18:14: Troponin I 0.01 04/27/22 20:13: POC Glucose 186 H 04/27/22 22:09: Troponin I 0.01 04/28/22 05:45: WBC 5.7, RBC 3.89 L, Hgb 11.2 L, Hct 34.9 L, MCV 89.8, MCH 28.8, MCHC 32.1, RDW 18.1 H, Plt Count 128 L, MPV 10.7 H, Neut % (Auto) 65.0, Lymph % (Auto) 18.2, [place] % (Auto) 8.0, Eos % (Auto) 7.5, Baso % (Auto) 1.2, Neut # (Auto) 3.7, Lymph # (Auto) 1.1, [place] # (Auto) 0.5, Eos # (Auto) 0.4, Baso # (Auto) 0.1 04/28/22 05:45: Sodium 135 L, Potassium 3.5, Chloride 97 L, Carbon Dioxide 32 H, Anion Gap 9.5, BUN 29 H, Creatinine 1.30 H, Estimated Creat Clear 54, Estimated GFR 53 L, Est GFR ( Amer) 65, Glucose 86 D, Calcium 8.0 L, Total Bilirubin 0.8, Direct Bilirubin 0.4, Conjugated Bilirubin 0.0, Indirect Bilirubin 0.4, Unconjugated Bilirubin 0.4, AST 23, ALT 17, Alkaline Phosphatase 99, Total Protein 6.4, Albumin 3.5 D, Triglycerides 71, Cholesterol 78 L, LDL Cholesterol Direct 50.74 L, VLDL Cholesterol 14, HDL Cholesterol 18 L, Cholesterol/HDL Ratio 4.3 H 04/28/22 05:45: Hemoglobin A1c 6.5 H 04/28/22 05:45: Magnesium 2.0, NT-Pro-B Natriuret Pep 68220 H 04/28/22 06:34: POC Glucose 88 04/28/22 11:04: POC Glucose 141 H I & O for Last 24 hours: Intake & Output 04/25/22 04/26/22 04/27/22 04/28/22 23:59 23:59 23:59 23:59 Intake Total 240 / 240 1020 / 1020 Output Total 550 / 550 2660 / 2660 Balance -310 / -310 -1640 / -1640 Weight 79.124 kg 81.448 kg Constitutional Constitutional: no acute distress, average body habitus, chronically ill appearing and cooperative *Routine HEENT Exam Head: Present normocephalic Eye: Present EOMI and PERRL ENT: Present mucous membranes moist *Routine Neck Exam Neck: Present supple; Absent lymphadenopathy *Routine Respiratory Exam Respiratory: Present rhonchi, normal respiratory effort and symmetric chest movement *Routine Cardiovascular Exam Cardiovascular: Present RRR and murmur *Routine Abdominal Exam Abdominal: Present soft and normoactive bowel sounds; Absent tenderness *Routine Extremities Exam Extremities: Present full ROM and pulses intact; Absent cyanosis, clubbing or edema *Routine Skin Exam Skin: Present warm; Absent rash *Routine Neurological Exam Neurological: Present alert, oriented X3, moving all extremities, vision grossly intact, hearing grossly intact and normal speech; Absent sensory deficit or motor deficit Routine Psychiatric Exam Psychiatric: Present normal affect, normal thought process, cooperative, good insight and good judgment Assessment and Plan *Assessment and plan (1) Acute on chronic HFrEF (heart failure with reduced ejection fraction): Status: Acute
--- NOTE | 2022-04-28 18:24 | PC.NURSE ---
A&OX4. TOLERATING 2LNC WELL. HAS BEEN ON MILRINONE DRIP T/O SHIFT. TOLERATING WELL. HAS HAD ADEQUATE U/O. STRICT I&OS BEING MEASURED. PT FAMILY HAS BEEN AT BEDSIDE MAJORITY OF SHIFT. PT IS TO BE TRANSFERED TO [facility] VIA [facility] METHODS. PT AND FAMILY V/U. PT RESTING COMFORTABLY IN BED AT THIS TIME, NO NEEDS OR C/O NOTED.
[2022-04-28 20:56] LABS: POC Glucose,Bedside 253 (70-110)
[2022-04-29] VITALS (10 sets, daily range): BP systolic 70–106; BP diastolic 46–60; PULSE 70–81; RESP 13–20; TEMP 36.3–36.8; O2SAT 92–100; BMI 27.3
--- NOTE | 2022-04-29 01:10 | PC.NURSE ---
pt's son called for update on pt's transfer status, son wants to be called upon pt's departure, his name is Steve and his phone number is [phone]
[2022-04-29 02:34] LABS: POC Glucose,Bedside 124 (70-110)
[2022-04-29 05:58] LABS: POC Glucose,Bedside 101 (70-110)
[2022-04-29 06:28] LABS: Anion Gap 9.5 mEq/L (5-15); Blood Urea Nitrogen 31 mg/dl (9-20); Calcium 8.1 mg/dl (8.4-10.2); Carbon Dioxide 34 mmol/L (22.0-30.0); Chloride 94 mmol/L (98-107); Creatinine Clearance Estimated 50 mL/min (50-200); Estimated Glomerular Filt Rate 49 ml/min (>60); GFR (African American) 59 ML/MIN (>60); Glucose 97 mg/dl (74-100); Potassium 3.5 mmoL/L (3.5-5.1); Sodium 134 mmol/L (136-145)
[2022-04-29 06:38] LABS: NT Pro Brain Natriuretic Pep. 9780 pg/mL (0-450)
--- NOTE | 2022-04-29 10:47 | EXP.CARD.PN ---
Subjective Subjective Date: 04/29/22 Time: 10:00 Principal diagnosis: systolic chf Interval history: This is a 76-year-old gentleman who was admitted to the hospital with an acute exacerbation of his chronic systolic congestive heart failure. He is status post AICD placement. The patient does have severe aortic stenosis and underwent valvuloplasty in February of this year for that. The patient was admitted and has been on a milrinone drip. He has tolerated this well. Dr. Lugo did speak to Dr. Peterson and another CT surgeon down at [facility]. They have agreed to accept the patient in transfer for consideration of a TAVR or repeat valvuloplasty for his severe aortic stenosis. The patient does have a bed available and is currently awaiting transport. This morning he is still complaining of shortness of breath and weakness and fatigue. He denies any chest pain or pressure. He denies any fever, chills, nausea, vomiting or diarrhea. He does have associated orthopnea with his shortness of breath. His blood pressure is on the low side this morning with a map below 60. Exam Data for Last 24 hours Vital signs and Labs for Last 24 Hours: Temp Pulse Resp BP Pulse Ox 98.2 F 75 18 81/53 L 98 04/29/22 08:00 04/29/22 10:00 04/29/22 10:00 04/29/22 10:00 04/29/22 10:00 Laboratory Results - last 24 hr 04/28/22 11:04: POC Glucose 141 H 04/28/22 16:31: POC Glucose 124 H 04/28/22 20:16: POC Glucose 253 H 04/29/22 05:48: POC Glucose 101 04/29/22 05:50: NT-Pro-B Natriuret Pep 9780 H 04/29/22 05:50: Sodium 134 L, Potassium 3.5, Chloride 94 L, Carbon Dioxide 34 H, Anion Gap 9.5, BUN 31 H, Creatinine 1.40 H, Estimated Creat Clear 50, Estimated GFR 49 L, Est GFR ( Amer) 59, Glucose 97, Calcium 8.1 L I & O for Last 24 hours: Intake & Output 04/26/22 04/27/22 04/28/22 04/29/22 23:59 23:59 23:59 23:59 Intake Total 240 / 240 1020 / 1020 240 / 240 Output Total 550 / 550 3310 / 3610 800 / 800 Balance -310 / -310 -2290 / -2590 -560 / -560 Weight 174 lb 7 oz 179 lb 9 oz 180 lb 5.339 oz Narrative: Telemetry strip is AV pacing Constitutional Constitutional: no acute distress and average body habitus *Routine HEENT Exam Head: Present normocephalic and atraumatic ENT: Present mucous membranes moist *Routine Neck Exam Neck: Present supple, full ROM and normal carotid upstroke; Absent JVD, carotid bruit or lymphadenopathy *Routine Respiratory Exam Respiratory: Present rales, rhonchi, normal respiratory effort, able to speak in complete sentences and symmetric chest movement *Routine Cardiovascular Exam Cardiovascular: Present RRR, Normal S1, Normal S2 and murmur; Absent gallop *Routine Abdominal Exam Abdominal: Present soft and normoactive bowel sounds; Absent tenderness, distended or organomegaly *Routine Extremities Exam Extremities: Present full ROM, pulses intact and normal capillary refill; Absent cyanosis, clubbing or edema *Routine Skin Exam Skin: Present intact and warm; Absent erythema *Routine Neurological Exam Neurological: Present alert, oriented X3 and CN II-XII intact; Absent sensory deficit or motor deficit Routine Psychiatric Exam Psychiatric: Present normal affect Progress Note: A&P Assessment and plan (1) Acute on chronic HFrEF (heart failure with reduced ejection fraction): Status: Acute (2) Severe aortic stenosis: Status: Acute (3) CAD (coronary artery disease): Status: Chronic (4) Diabetes mellitus: Status: Chronic (5) Hx of CABG: Status: Chronic (6) HTN (hypertension): Status: Chronic (7) AICD (automatic cardioverter/defibrillator) present: Status: Chronic (8) Shortness of Breath: Status: Acute (9) Stented coronary artery: Status: Acute (10) HLD (hyperlipidemia): Status: Chronic (11) AAA (abdominal aortic aneurysm): Status: Acute Assessment and Plan Assessment and Plan for All Diagnoses:: Plan: 1. The patie
--- NOTE | 2022-04-29 12:56 | EXP.DC.SUM ---
General Admission date:: 04/27/22 Discharge date: 04/29/22 HPI HPI HPI: This is a 76-year-old male that presents to [facility] emergency department with concerns of shortness of air. His past medical history is significant for coronary artery disease status post CABG with ischemic cardiomyopathy and reduced ejection fraction 20%, diabetes and AICD placement. In February he underwent aortic valvuloplasty and is due for TAVR pending improved ejection fraction. He describes several weeks of shortness of air not improved with his home medication regiment. He reached out to his industrial cafeteria manager and they made recommendations but he deferred at that time. He reports his shortness of breath has increased and he is now experiencing NYHA IV symptomatology. He denies retrosternal chest pain or unusual palpitations. He has not identified any confusion or hallucinations. He reports a past history of IV Milrinone therapy. Feed Preparation Operator recommended ED evaluation for admission for his acute on chronic heart failure with reduced ejection fraction. In the ED his electrolytes are normal his creatinine is 1.3 magnesium is normal troponins are negative and his BNP is >11,000. His chest x-ray is consistent with pulmonary edema. His most recent echocardiogram in February identified an ejection fraction of 20%. Hospital Course Hospital Course Hospital Course: The patient was admitted to the medical unit with telemetry monitoring. Cardiology was consulted for his severe aortic stenosis and acute on chronic heart failure with reduced ejection fraction (EF~20%). He was continued on IV milrinone therapy. ACC guided therapy included IV loop diuretic therapy, ARNI therapy, beta-elaine therapy aldosterone antagonist therapy and SGLT2 inhibitor therapy. His laboratory studies and inflammatory markers were trended and identified stability and improvement. He was maintained on antiplatelet and statin therapy. His CBC identified normal white blood cell count and stable hemoglobin's. His electrolytes identified stability and his creatinine remained stable with a baseline of 1.4. His hemoglobin A1c was 6.5%. [place] [address] and on discharge it diminished to 9800. The patient identified improvement with ongoing discussions concerning definitive plans for his severe aortic stenosis. He was amendable to transition his care for higher level of services. Cardiology assisted with transition of care for his severe aortic stenosis and plans for repeat valvuloplasty versus TAVR. Dr. Peterson at [facility] graciously accepted the patient for transition of care. Case management assisted with transportation needs. I spent 35 minutes in [id number] time with the patient, cardiology service and nursing staff concerning the discharge process. We discussed the admitting diagnoses and hospital course. We discussed identified improvement and the patient's desire to transition his care. We reviewed inpatient studies and imaging. The patient voiced understanding on the importance of follow-up with his primary care provider and industrial cafeteria manager upon discharge from the receiving facility. The patient plans to be compliant with the medication regimen prescribed and follow-up appointments. His care will be transition to [facility]. Exam Data for Last 24 hours Vital signs and Labs for Last 24 Hours: Temp Pulse Resp BP Pulse Ox 98.2 F 81 20 86/50 L 100 04/29/22 08:00 04/29/22 12:00 04/29/22 12:00 04/29/22 12:00 04/29/22 12:00 Laboratory Results - last 24 hr 04/28/22 16:31: POC Glucose 124 H 04/28/22 20:16: POC Glucose 253 H 04/29/22 05:48: POC Glucose 101 04/29/22 05:50: NT-Pro-B Natriuret Pep 9780 H 04/29/22 05:50: Sodium 134 L, Potassium 3.5, Chloride 94 L, Carbon Dioxide 34 H, Anion Gap 9.5, BUN 31 H, Creatinine 1.40 H, Estimated Creat Clear 50, Estimated GFR 49 L, Est GFR ( Amer) 59, Glucose 97, Calcium 8.1
[2022-04-29 16:31] LABS: POC Glucose,Bedside 217 (70-110)
== END 2022-04-29 14:35 | disposition short-term general hospital (02) | DRG 682 ==
LOC: ER 15:24 → 2ND 16:38
PROVIDERS: Nurse Practitioner Family; Admitting Provider Family Medicine; Emergency Provider Emergency Medicine; PCP Family Medicine; Visit Provider Family Medicine
DX: I13.10 Hypertensive heart and chronic kidney disease without heart failure, with stage 1 through stage 4 chronic kidney disease, or unspecified chronic kidney disease (principal); I50.23 Acute on chronic systolic (congestive) heart failure; I25.10 Atherosclerotic heart disease of native coronary artery without angina pectoris; I35.0 Nonrheumatic aortic (valve) stenosis; Z95.5 Presence of coronary angioplasty implant and graft; Z95.1 Presence of aortocoronary bypass graft; E11.22 Type 2 diabetes mellitus with diabetic chronic kidney disease; N18.9 Chronic kidney disease, unspecified; Z95.810 Presence of automatic (implantable) cardiac defibrillator; Z79.84 Long term (current) use of oral hypoglycemic drugs
CPT/HCPCS: 36415; 71046; 80048; 80061; 80076; 82962; 83036; 83735; 83880; 84443; 84484; 85025; 93005; 93306; 93308; 99285; C9803; J2260; U0003; U0005

== ENCOUNTER 2022-05-20 13:47 | Outpatient (RCR) | payer MEDICARE, SELFPAY | END 2022-05-20 13:50 | disposition home or self-care (01) | LOC: PT 13:47 | PROVIDERS: PCP Family Medicine; Visit Provider Family Medicine | DX: L97.419 Non-pressure chronic ulcer of right heel and midfoot with unspecified severity (principal) | CPT/HCPCS: 97163 ==

== ENCOUNTER → 2022-05-23 12:19 | Outpatient (CLI) | payer MEDICARE, SELFPAY ==
[2022-05-23 12:39] LABS: Basophils # 0.1 K/mm3 (0-0.2); Basophils % 1.7 % (0.1-2.0); Eosinophils # 0.4 K/mm3 (0.0-0.4); Eosinophils % 6.4 % (0.1-12.0); Hematocrit 43.3 % (42.0-52.0); Hemoglobin 13.7 g/dL (14.1-18.0); Lymphocytes % 16.6 % (10-50); Mean Corpuscular HGB Conc 31.7 g/dL (31.8-35.4); Mean Corpuscular Hemoglobin 28.2 pg (27.0-31.2); Mean Corpuscular Volume 88.9 fl (80-94); Mean Platelet Volume 10.8 fl (7.4-10.4); Monocytes # 0.6 K/mm3 (0.1-1.0); Monocytes % 10.2 % (1.7-9.3); Neutrophils # 3.9 K/mm3 (1.8-7.8); Platelet Count 141 K/mm3 (142-424); Red Blood Count 4.87 M/mm3 (4.60-6.20); Red Cell Distribution Width 18.8 % (11.5-17.5)
[2022-05-23 13:02] LABS: Chloride 96 mmol/L (98-107); Sodium 136 mmol/L (136-145)
[2022-05-23 13:03] LABS: Potassium 4.4 mmoL/L (3.5-5.1)
[2022-05-23 13:05] LABS: Alanine Aminotransferase 49 U/L (12-78); Alkaline Phosphatase 126 U/L (38-126); Anion Gap 12.4 mEq/L (5-15); Aspartate Amino Transferase 33 U/L (17-59); Bilirubin,Direct 0.3 mg/dl (0.0-0.4); Bilirubin,Indirect 0.7 mg/dL (0.0-0.9); Bilirubin,Unconjugated 0.8 mg/dL (0.0-1.1); Blood Urea Nitrogen 47 mg/dl (9-20); Carbon Dioxide 32 mmol/L (22.0-30.0); Estimated Glomerular Filt Rate 42 ml/min (>60); GFR (African American) 51 ML/MIN (>60)
[2022-05-23 13:06] LABS: Albumin Level 4.7 g/dl (3.5-5.0); Calcium 9.1 mg/dl (8.4-10.2); Glucose 92 mg/dl (74-100)
== END ==
PROVIDERS: PCP Family Medicine; Visit Provider Internal Medicine
DX: E78.2 Mixed hyperlipidemia (principal); I10 Essential (primary) hypertension; I25.10 Atherosclerotic heart disease of native coronary artery without angina pectoris; I35.0 Nonrheumatic aortic (valve) stenosis; I71.4 Abdominal aortic aneurysm, without rupture; Z95.1 Presence of aortocoronary bypass graft; Z95.5 Presence of coronary angioplasty implant and graft; Z95.810 Presence of automatic (implantable) cardiac defibrillator
CPT/HCPCS: 36415; 80048; 80076; 85025

== ENCOUNTER → 2022-05-25 10:20 | Outpatient (CLI) | payer MEDICARE, SELFPAY | PROVIDERS: Visit Provider Nurse Practitioner Family | DX: E11.621 Type 2 diabetes mellitus with foot ulcer (principal); L97.509 Non-pressure chronic ulcer of other part of unspecified foot with unspecified severity; M79.673 Pain in unspecified foot ==

== ENCOUNTER → 2022-05-25 10:32 | Outpatient (CLI) | payer MEDICARE, SELFPAY ==
--- NOTE | 2022-05-25 10:37 | XR_ITS ---
FINAL REPORT CLINICAL HISTORY: Foot Pain FINDINGS: RIGHT ANKLE Three views of the right ankle were obtained. There is no acute fracture or dislocation. There is mild degenerative disease. There are calcaneal spurs. There is no soft tissue abnormality. IMPRESSION: Mild degenerative disease with no acute bony abnormality. Reviewed, Interpreted and Dictated by Skylar Silva MD Transcribed by Rachel Velasco Authenticated and [facility]
--- NOTE | 2022-05-25 10:37 | XR_ITS ---
FINAL REPORT CLINICAL HISTORY: foot pain FINDINGS: Axial and lateral views of the right calcaneus were obtained. There is no prior exam for comparison. There is no acute fracture or other acute osseous abnormality. The joint spaces are preserved. There are calcaneal spurs. The soft tissues are unremarkable. IMPRESSION: No acute osseous abnormality of the right calcaneus. Reviewed, Interpreted and Dictated by Skylar Silva MD Transcribed by Rachel Velasco Authenticated and [facility]
[2022-05-25 11:28] LABS: Basophils # 0.1 K/mm3 (0-0.2); Basophils % 1.6 % (0.1-2.0); Eosinophils # 0.3 K/mm3 (0.0-0.4); Eosinophils % 6.4 % (0.1-12.0); Hematocrit 40.4 % (42.0-52.0); Hemoglobin 12.2 g/dL (14.1-18.0); Lymphocytes # 0.9 K/mm3 (0.7-4.5); Lymphocytes % 18.7 % (10-50); Mean Corpuscular HGB Conc 30.1 g/dL (31.8-35.4); Mean Corpuscular Hemoglobin 27.8 pg (27.0-31.2); Mean Corpuscular Volume 92.2 fl (80-94); Mean Platelet Volume 10.3 fl (7.4-10.4); Monocytes # 0.4 K/mm3 (0.1-1.0); Monocytes % 9.6 % (1.7-9.3); Neutrophils # 2.9 K/mm3 (1.8-7.8); Neutrophils % 63.8 % (37.0-80.0); Platelet Count 90 K/mm3 (142-424); Red Blood Count 4.38 M/mm3 (4.60-6.20); Red Cell Distribution Width 18.6 % (11.5-17.5); White Blood Count 4.5 K/mm3 (4.8-10.8)
[2022-05-25 11:57] LABS: Erythrocyte Sedimentation Rate 19 mm/hr (0-20)
[2022-05-25 12:52] LABS: Alanine Aminotransferase 37 U/L (12-78); Albumin Level 4.3 g/dl (3.5-5.0); Albumin/Globulin Ratio 1.4 (1.1-1.8); Alkaline Phosphatase 125 U/L (38-126); Anion Gap 15.4 mEq/L (5-15); Aspartate Amino Transferase 30 U/L (17-59); Blood Urea Nitrogen 54 mg/dl (9-20); Calcium 8.4 mg/dl (8.4-10.2); Carbon Dioxide 28 mmol/L (22.0-30.0); Chloride 98 mmol/L (98-107); Estimated Glomerular Filt Rate 49 ml/min (>60); GFR (African American) 59 ML/MIN (>60); Glucose 92 mg/dl (74-100); Potassium 4.4 mmoL/L (3.5-5.1); Sodium 137 mmol/L (136-145); Total Protein,Serum 7.3 g/dl (6.3-8.2)
[2022-05-25 12:57] LABS: C-Reactive Protein 1.5 mg/L (0-4)
== END ==
PROVIDERS: PCP Family Medicine; Visit Provider Nurse Practitioner Family
DX: E11.621 Type 2 diabetes mellitus with foot ulcer; M79.671 Pain in right foot; L97.519 Non-pressure chronic ulcer of other part of right foot with unspecified severity
CPT/HCPCS: 36415; 73610; 73650; 80053; 85025; 85651; 86140

== ENCOUNTER → 2022-05-26 11:25 | Outpatient (CLI) | payer MEDICARE, SELFPAY | PROVIDERS: Visit Provider Nurse Practitioner Family | DX: E11.621 Type 2 diabetes mellitus with foot ulcer (principal); L97.509 Non-pressure chronic ulcer of other part of unspecified foot with unspecified severity; S91.301A Unspecified open wound, right foot, initial encounter; Z51.89 Encounter for other specified aftercare; Z79.84 Long term (current) use of oral hypoglycemic drugs | CPT/HCPCS: 87070; 87077; 87186; 87205 ==

== ENCOUNTER → 2022-05-31 09:13 | Outpatient (CLI) | payer MEDICARE, SELFPAY ==
--- NOTE | 2022-05-31 | US_ITS ---
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 Reviewed, Interpreted and Dictated by Silas Estrada MD Transcribed by Jac Ferrari Authenticated and [facility]
== END ==
PROVIDERS: Visit Provider Nurse Practitioner Family
DX: R09.89 Other specified symptoms and signs involving the circulatory and respiratory systems (principal)
CPT/HCPCS: 93923

== ENCOUNTER → 2022-10-27 00:25 | Outpatient (CLI) | payer MEDICARE, SELFPAY | PROVIDERS: PCP Nurse Practitioner Family; Visit Provider Nurse Practitioner Family | DX: Z51.89 Encounter for other specified aftercare (principal); S91.301A Unspecified open wound, right foot, initial encounter; B95.7 Other staphylococcus as the cause of diseases classified elsewhere | CPT/HCPCS: 87070; 87077; 87186; 87205 ==

== ENCOUNTER → 2022-12-09 14:30 | Outpatient (CLI) | payer MEDICARE, SELFPAY ==
[2022-12-09 15:34] LABS: Anion Gap 14.7 mEq/L (5-15); Blood Urea Nitrogen 30 mg/dl (9-20); Calcium 8.8 mg/dl (8.4-10.2); Carbon Dioxide 30 mmol/L (22.0-30.0); Chloride 98 mmol/L (98-107); Estimated Glomerular Filt Rate 53 ml/min (>60); GFR (African American) 64 ML/MIN (>60); Glucose 146 mg/dl (74-100); Potassium 3.7 mmoL/L (3.5-5.1); Sodium 139 mmol/L (136-145)
== END ==
PROVIDERS: PCP Internal Medicine; Visit Provider Nurse Practitioner Family
DX: I10 Essential (primary) hypertension (principal)
CPT/HCPCS: 80048

== ENCOUNTER → 2023-01-24 11:29 | Outpatient (CLI) | payer MEDICARE, SELFPAY ==
--- NOTE | 2023-01-24 11:46 | XR_ITS ---
FINAL REPORT CLINICAL HISTORY: dyspnea COMPARISON: 04/27/2022 FINDINGS: 2 views of the chest were obtained . The heart is enlarged. Patient is status post CABG and aortic valve repair. A left-sided pacemaker is in place. The mediastinum is within normal limits. The lungs are clear. There is no pneumothorax. Osseous structures are unremarkable. IMPRESSION: No acute cardiopulmonary process. Reviewed, Interpreted and Dictated by Gokul Bond MD Transcribed by Janessa Rowland Authenticated and [facility]
[2023-01-24 11:54] LABS: Basophils # 0.1 K/mm3 (0-0.2); Basophils % 0.7 % (0.1-2.0); Eosinophils # 0.5 K/mm3 (0.0-0.4); Eosinophils % 5.5 % (0.1-12.0); Hemoglobin 13.5 g/dL (14.1-18.0); Lymphocytes # 1.4 K/mm3 (0.7-4.5); Lymphocytes % 16.6 % (10-50); Mean Corpuscular Hemoglobin 29.7 pg (27.0-31.2); Mean Corpuscular Volume 89.8 fl (80-94); Mean Platelet Volume 11.1 fl (7.4-10.4); Monocytes # 0.7 K/mm3 (0.1-1.0); Monocytes % 8.2 % (1.7-9.3); Neutrophils # 5.7 K/mm3 (1.8-7.8); Platelet Count 114 K/mm3 (142-424); Red Blood Count 4.57 M/mm3 (4.60-6.20); Red Cell Distribution Width 16.5 % (11.5-17.5); White Blood Count 8.2 K/mm3 (4.8-10.8)
[2023-01-24 12:47] LABS: Chloride 96 mmol/L (98-107); Potassium 4.4 mmoL/L (3.5-5.1); Sodium 137 mmol/L (136-145)
[2023-01-24 12:49] LABS: Alanine Aminotransferase 20 U/L (12-78); Aspartate Amino Transferase 26 U/L (17-59); Bilirubin,Unconjugated 0.3 mg/dL (0.0-1.1); Blood Urea Nitrogen 39 mg/dl (9-20); Estimated Glomerular Filt Rate 39 ml/min (>60); GFR (African American) 47 ML/MIN (>60)
[2023-01-24 12:50] LABS: Albumin Level 4.6 g/dl (3.5-5.0); Alkaline Phosphatase 110 U/L (38-126); Anion Gap 15.4 mEq/L (5-15); Bilirubin,Direct 0.4 mg/dl (0.0-0.4); Bilirubin,Indirect 0.3 mg/dL (0.0-0.9); Bilirubin,Total 0.7 mg/dl (0.2-1.3); Calcium 8.8 mg/dl (8.4-10.2); Carbon Dioxide 30 mmol/L (22.0-30.0); Chol/HDL Ratio 7.4 (1-3.5); Cholesterol 125 mg/dl (140-200); Glucose 186 mg/dl (74-100); HDL Cholesterol 17 mg/dl (40-60); Total Protein,Serum 7.4 g/dl (6.3-8.2); Triglycerides 131 mg/dl (30-150); VLDL Cholesterol 26 mg/dL (0-40)
[2023-01-24 13:02] LABS: Direct LDL Cholesterol 85.83 mg/dL (100-129)
[2023-01-24 13:06] LABS: Free T4 (Free Thyroxine) 1.28 ng/dl (0.78-2.19)
[2023-01-24 13:21] LABS: Thyroid Stimulating Hormone 3.83 uIU/mL (0.465-4.68)
== END ==
PROVIDERS: PCP Family Medicine; Visit Provider Nurse Practitioner
DX: E11.9 Type 2 diabetes mellitus without complications (principal); E78.5 Hyperlipidemia, unspecified; I10 Essential (primary) hypertension; I25.10 Atherosclerotic heart disease of native coronary artery without angina pectoris; I50.22 Chronic systolic (congestive) heart failure; I50.23 Acute on chronic systolic (congestive) heart failure; R06.00 Dyspnea, unspecified; Z95.1 Presence of aortocoronary bypass graft; Z95.2 Presence of prosthetic heart valve; Z95.5 Presence of coronary angioplasty implant and graft; Z95.810 Presence of automatic (implantable) cardiac defibrillator; Z79.84 Long term (current) use of oral hypoglycemic drugs; I71.40 Abdominal aortic aneurysm, without rupture, unspecified
CPT/HCPCS: 36415; 71046; 80048; 80061; 80076; 84439; 84443; 85025